=== PATIENT | male | born 1995 | race Caucasian/White ===

== ENCOUNTER 2025-06-22 15:47 | Outpatient (BNV) | payer OTHER, SELFPAY | END 2025-06-23 14:29 | PROVIDERS: Admitting Provider Psychiatry & Neurology Psychiatry; Visit Provider Internal Medicine Cardiovascular Disease | DX: I45.10 Unspecified right bundle-branch block (principal) | CPT/HCPCS: 93010 ==

== ENCOUNTER 2025-06-22 15:47 | Inpatient (IN) | payer OTHER, SELFPAY ==
--- OUTSIDE RECORDS SUMMARY | 2025-06-21 16:09 | XMS_ITS | Encounter Summary ---
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 procedure / Unknown Non-blood Collection / Unknown 06/22/2025 8:33 AM EST 06/22/2025 8:38 AM [facility] - 06/22/2025 9:11 AM EST Assay cutoffs: Amphetamines 1000 ng/mL Barbiturates 200 ng/mL Benzodiazepines 200 ng/mL Cocaine 300 ng/mL Fentanyl 1 ng/mL Opiates 300 ng/mL Oxycodone 100 ng/mL THC 50 ng/mL Semi-quantitative assay for screening purposes only. Unconfirmed screening result should not be used for non-medical purposes. *ALTERNATE METHOD CONFIRMATION DONE UPON REQUEST ONLY* Anthony Olson MD LAB URINE ORDERABLES Final Resul t [facility] [address] [place] [address], [place] [phone] * XR Chest 1 View (06/21/2025 6:27 PM EST) Anatomical Region Laterality Modality Body Radiographic Celeste ging 06/22/2025 7:45 AM EST Impressions 06/22/2025 7:46 AM EST No acute pulmonary disease. Code 12154 -------- FINAL REPORT -------- Dictated By: Waqar Ceja Dictated Date: 06/22/2025 07:45 ET Assigned Physician: Waqar Ceja Reviewed and Electronically Signed By: Waqar Ceja Signed Date: 06/22/2025 07:46 ET Workstation ID: [id number] Transcribed By: Self Edit Transcribed Date: 06/22/2025 07:45 ET Narrative 06/22/2025 7:46 AM EST HISTORY: The patient is a 30-year-old male with altered mental status. FINDINGS: Sitting AP radiograph of the chest demonstrates normal appearance of the bony structures. The cardiac and mediastinal contours are of normal appearance given AP technique. The lungs and costophrenic angles are clear. Procedure Note Waqar Ceja MD - 06/22/2025 HISTORY: The patient is a 30-year-old male with altered mental status. FINDINGS: Sitting AP radiograph of the chest demonstrates normalappearance of the bony structures. The cardiac and mediastinal contoursare of normal appearance given AP technique. The lungs and costophrenicangles are clear. IMPRESSION: No acute pulmonary disease. Code 31372 -------- FINAL REPORT -------- Dictated By: Waqar Ceja Dictated Date: 06/22/2025 07:45 ET Assigned Physician: Waqar Ceja Reviewed and Electronically Signed By: Waqar Ceja Signed Date: 06/22/2025 07:46 ET Workstation ID: [id number] Transcribed By: Self Edit Transcribed Date: 06/22/2025 07:45 ET us Anthony Olson MD IMG XR PROCEDURES Final Result * (ABNORMAL) CBC auto differential (06/21/2025 4:59 PM EST) [facility] WBC 10.5 4.8 - 10.8 K/mcL LAB HEMETOLOGY METHOD 06/21/2025 5:29 PM [facility] RBC 4.30(L) 4.50 - 5.50 M/mcL LAB HEMETOLOGY METHOD 06/21/2025 5:29 PM [facility] Hemoglobin 12.0(L) 13.5 - 17.5 g/dL LAB HEMETOLOGY METHOD 06/21/2025 5:29 PM [facility] Hematocrit 36.8(L) 42.0 - 54.0 % LAB HEMETOLOGY METHOD 06/21/2025 5:29 PM [facility] MCV 85.0 79.0 - 98.0 FL LAB HEMETOLOGY METHOD 06/21/2025 5:29 PM [facility] MCH 27.7 27.0 - 32.0 pcg LAB HEMETOLOGY METHOD 06/21/2025 5:29 PM [facility] MCHC 32.6 32.0 - 37.0 g/dL LAB HEMETOLOGY METHOD 06/21/2025 5:29 PM [facility] RDW 14.0 11.0 - 15.0 % LAB HEMETOLOGY METHOD 06/21/2025 5:29 PM [facility] Platelets 247 130 - 400 K/mcL LAB HEMETOLOGY METHOD 06/21/2025 5:29 PM [facility] MPV 11.0 7.0 - 11.0 FL LAB HEMETOLOGY METHOD 06/21/2025 5:29 PM [facility] NRBC 0.0 <1.0 % LAB HEMETOLOGY METHOD 06/21/2025 5:29 PM [facility] NRBC Absolute 0.00 <0.10 K/mcL LAB HEMETOLOGY METHOD 06/21/2025 5:29 PM [facility] Neutrophils Relative 68.8 % LAB HEMETOLOGY METHOD 06/21/2025 5:29 PM [facility] Lymphocytes Relative 22.1 % LAB HEMETOLOGY METHOD 06/21/2025 5:29 PM [facility] Monocytes Relative 7.9 % LAB HEMETOLOGY METHOD 06/21/2025 5:29 PM [facility] Eosinophils Relative 0.6 % LAB HEMETOLOGY METHOD 06/21/2025 5:29 PM [facility] Basophils Relative 0.2 % LAB HEMETOLOGY METHOD 06/21/2025 5:29 PM [facility] Immature Granulocytes Relative 0.4 % LAB HEMETOLOGY METHOD 06/21/2025 5:29 PM [facility] Neutrophils Absolute 7.24(H) 1.50 - 7.00 K/mcL LAB HEMETOLOGY METHOD 06/21/2025 5:29 PM [facility] Lymphocytes Absolute 2.32 1.00 - 5.00 K/mcL LAB HEMETOLOGY METHOD 06/21/2025 5:29 PM [facility] Monocytes Absolute 0.83 0.20 - 1.00 K/mcL LAB HEMETOLOGY METHOD 06/21/2025 5:29 PM [facility] Eosinophils Absolute 0.06 0.00 - 0.50 K/mcL LAB HEMETOLOGY METHOD 06/21/2025 5:29 PM [facility] Basophils Absolute 0.02 0.00 - 0.20 K/mcL LAB HEMETOLOGY METHOD 06/21/2025 5:29 PM [facility] Immature Granulocytes Absolute 0.04(H) 0.00 - 0.03 K/mcL LAB HEMETOLOGY METHOD 06/21/2025 5:29 PM [facility] Blood Venous blood specimen / Unknown Venipuncture / Unknown 06/21/2025 4:59 PM EST 06/21/2025 5:19 PM EST us Anthony Olson MD LAB BLOOD ORDERABLES Final Resul t Performing Organization Address [facility]/ZIP Co de Phone Number [facility] [address] [place] [address], [place] [phone] * Salicylate level (06/21/2025 4:59 PM EST) Salicylate Level <3.0 2.0 - 29.0 mg/dL 06/21/2025 6:04 PM EST [facility] Blood Venous blood specimen / Unknown Venipuncture / Unknown 06/21/2025 4:59 PM EST 06/21/2025 5:19 PM EST us Anthony Olson MD LAB BLOOD ORDERABLES Final Resul t Performing Organization Address [facility]/ZIP Co de Phone Number [facility] [address] [place] [address], [place] [phone] * (ABNORMAL) Acetaminophen level (06/21/2025 4:59 PM EST) Acetaminophen Level <2.0(L) 10.0 - 30.0 mcg/mL 06/21/2025 6:02 PM EST [facility] Blood Venous blood specimen / Unknown Venipuncture / Unknown 06/21/2025 4:59 PM EST 06/21/2025 5:19 PM EST us Anthony Olson MD LAB BLOOD ORDERABLES Final Resul t Performing Organization Address City/[facility]/ZIP Co de Phone Number [facility] [address] [place] [address], [place] [phone] * Ethanol (06/21/2025 4:59 PM EST) Ethanol Level 4 0 - 10 mg/dL 06/21/2025 6:02 PM [facility] Blood Venous blood specimen / Unknown Venipuncture / Unknown 06/21/2025 4:59 PM EST 06/21/2025 5:19 PM EST us Anthony Olson MD LAB BLOOD ORDERABLES Final Resul t [facility] [address] [place] [address], [place] [phone] * (ABNORMAL) Comprehensive metabolic panel (06/21/2025 4:59 PM EST) [facility] Sodium 141 133 - 145 mmol/L 06/21/2025 6:02 PM [facility] Potassium 4.1 3.5 - 5.5 mmol/L 06/21/2025 6:02 PM [facility] Chloride 102 96 - 110 mmol/L 06/21/2025 6:02 PM [facility] CO2 29 21 - 32 mmol/L 06/21/2025 6:02 PM [facility] Anion Gap 10 3 - 11 06/21/2025 6:02 PM [facility] Glucose 95 70 - 100 mg/dL 06/21/2025 6:02 PM [facility] BUN 9 5 - 25 mg/dL 06/21/2025 6:02 PM [facility] Creatinine 0.60(L) 0.70 - 1.30 mg/dL 06/21/2025 6:02 PM [facility] eGFR 133 >=60 mL/min/1. 73m2 06/21/2025 6:02 PM [facility] Comment:Calculation based on the Chronic Kidney Disease Epidemiology Collaboration (CKD-EPI) equation refit without adjustment for race. BUN/Creatinine Ratio 15.0 06/21/2025 6:02 PM [facility] Calcium 9.3 8.5 - 10.5 mg/dL 06/21/2025 6:02 PM [facility] AST (SGOT) 32 10 - 42 unit/L 06/21/2025 6:02 PM [facility] ALT (SGPT) 60 10 - 60 unit/L 06/21/2025 6:02 PM [facility] Alkaline Phosphatase 62 42 - 121 unit/L 06/21/2025 6:02 PM [facility] Total Protein 7.5 6.0 - 8.0 g/dL 06/21/2025 6:02 PM [facility] Albumin 4.3 3.2 - 5.0 g/dL 06/21/2025 6:02 PM [facility] Total Bilirubin 0.5 0.0 - 1.4 mg/dL 06/21/2025 6:02 PM [facility] Blood Venous blood specimen / Unknown Venipuncture / Unknown 06/21/2025 4:59 PM EST 06/21/2025 5:19 PM EST us Anthony Olson MD LAB BLOOD ORDERABLES Final Resul t [facility] [address] [place] [address], documented in this encounter Visit Diagnoses Diagnosis Altered mental status, unspecified altered mental status type- Primary documented in this encounter Administered Medications Inactive Administered Medications - up to 3 most recent administrations Medication Order MAR Action Action Date Dose Rate Site ibuprofen (ADVIL,MOTRIN) tablet 600 mg 600 mg, oral, Once, On Fri06/22/25 at 0512, For 1 dose, Administer with food or milk to decrease GI upset Given 06/22/2025 5:17 AM EST 600 mg LORazepam (ATIVAN) tablet 2 mg 2 mg, oral, Once, On Fri06/21/25 at 1649, For 1 dose Given 06/21/2025 5:00 PM EST 2 mg LORazepam (ATIVAN) tablet 2 mg 2 mg, oral, Once, On Fri06/22/25 at 1019, For 1 dose Given 06/22/2025 10:20 AM EST 2 mg documented in this encounter Historical Medications * This list may reflect changes made after this encounter. traZODone (DESYREL) 100 mg tablet Take 1 tablet (100 mg total) by mouth at bedtime. LORazepam (ATIVAN) 2 mg tablet Take 1 tablet (2 mg total) by mouth every 6 (six) hours if needed for anxiety. Max Daily Amount: 8 mg lurasidone (LATUDA) 40 mg tablet Take 1 tablet (40 mg total) by mouth 1 (one) time each day with breakfast. added in this encounter Active and Recently Administered Medications Times are shown in EST. Scheduled Medication Order 06/20/2025 06/21/2025 06/22/2025 ibuprofen (ADVIL,MOTRIN) tablet 600 mg (COMPLETED) 600 mg, oral, Once, On Fri06/22/25 at 0512, For 1 dose, Administer with food or milk to decrease GI upset 0517 (Given - Provid er: Jorge Urrutia RN) LORazepam (ATIVAN) tablet 2 mg (COMPLETED) 2 mg, oral, Once, On Fri06/21/25 at 1649, For 1 dose 1700 (Given - Provider: Melissa Johnson RN) LORazepam (ATIVAN) tablet 2 mg (COMPLETED) 2 mg, oral, Once, On Fri06/22/25 at 1019, For 1 dose 1020 (Given - Provid er: Patricia Ramirez RN) documented in this encounter Orders Consult Count Last Ordered Date First Orde red Date IP CONSULT TO MOLDER 1 06/21/2025 documented in this encounter Care Teams Blood Bank Custodian Relationship Specialty Start Date End Date Carlene Olmstead MD [address] [place] [phone] PCP - General Internal Medicine 06/21/25 documented as of this encounter
--- NOTE | ~2025-06-22 | XR_ITS ---
CLINICAL HISTORY: pain, unab le to bear wt intermittently 3 views left foot Comparison: None provided Findings: There is no fracture or dislocation. Joint spaces appear normal. There is no radiopaque foreign body. Impression: No osseous abnormality. This document has been electronically signed by: David Hilton MD on 06/22/2025 21:28:14
--- NOTE | ~2025-06-22 | XR_ITS ---
CLINICAL HISTORY: pain, unable to bear wt intermittently 3 views left ankle Comparison: None provided Findings: There appears to be soft tissue swelling. There is no fracture or dislocation. Joint spaces appear normal. There is no radiopaque foreign body. Impression: No osseous abnormality. This document has been electronically signed by: David Hilton MD on 06/22/2025 21:28:00
[2025-06-22 16:00] VITALS: BP 141/88; PULSE 97; RESP 17; TEMP 36.9; O2SAT 97
[2025-06-22 17:35] VITALS: BMI 36.4
--- OUTSIDE RECORDS SUMMARY | 2025-06-22 17:53 | XMS_ITS | Clinical Summary ---
Author Organization [place] [address] [facility] Address [address] [place], [place] [address], [place] [address] Phone Care Team Providers Care Blanchard Grinder Operator Name Role Phone Carlene Olmstead MD Primary Care Provider [phone] Allergies No known active allergies Medications lurasidone (LATUDA) 40 mg tablet Take 1 tablet (40 mg total) by mouth 1 (one) time each day with breakfast. Active LORazepam (ATIVAN) 2 mg tablet Take 1 tablet (2 mg total) by mouth every 6 (six) hours if needed for anxiety. Max Daily Amount: 8 mg Active traZODone (DESYREL) 100 mg tablet Take 1 tablet (100 mg total) by mouth at bedtime. 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 Acne vulgaris 11/11/2012 DX:Acne vulgaris Morbid obesity (CMS/HCC V24, CMS/HCC V28) DX:Morbid obesity (HCC) Hematochezia DX:Hematochezia; COMMENT: colonscopy done in 2013 at [facility] and normal Family History Medical History Relation Name Comments Diabetes Father Relation Name Status Comments Brother 1 Alive Brother 2 Alive Father Alive Mother Alive Sister 1 Alive Sister 2 Alive Sister 3 Alive Social History Tobacco Use Types Packs/Day Years Used Date Smoking Tobacco: Never Smokeless Tobacco: Never Alcohol Use Standard Drinks/Week Comments No 0 (1 standard drink = 0.6 oz pur e alcohol) Sex and Gender Information Value Date Recorded Sex Assigned at Not on file Legal Sex Male 12:42 PM EST Gender Identity Not on file Sexual Orientation Not on file Obstetrics History Last Filed Vital Signs Vital Sign Reading [...] Mass Index 36.02 06/21/2025 9:57 PM EST Plan of Treatment Upcoming Encounters Date Type Department Care Team (Late st Contact Info) Description 08/18/2025 3:30 PM EST Office Visit Internal Medicine - [address] [phone] Carlene Olmstead MD [address] [place] [address] Health Maintenance Due Date Last Done Comments Diabetes: Annual Foot Exam 2005 Diabetes: Annual Retina Eye Exam 2005 Hepatitis A Vaccines (1 of 2 - Risk 2-dose series) 2014 HPV Vaccines (1 - 3-dose SCDM series) 2022 DTaP,Tdap,and Td Vaccines (8 - Td or Tdap) 11/09/2022 11/09/2012, 03/21/2008, 05/15/2000, Additional history exists HIV Screening 08/26/2023 Hepatitis C Screening 08/26/2023 Social Influencers of Health Screening 08/26/2023 Depression Screening 07/28/2024 COVID-19 Vaccine ( season) 2025 Influenza Vaccine (#1) 2025 , 07/02/2010, 06/26/2009 Diabetes: Annual Urine Albumin-Creatinine Ratio (uACR) 06/21/2025 05/24/2021 Diabetes: Blood Sugar Control Test (HGBA1C) 11/23/2025 2025 Diabetes: Annual GFR (Glomerular Filtration Rate) 06/21/2026 06/21/2025, 06/02/2025, 05/23/2025, Additional history exists Hypertension/CHF/CAD Annual BMP Blood Test 06/21/2026 06/21/2025, 06/02/2025, 05/23/2025, Additional history exists Cholesterol Screening (Lipid Panel) 2030 2025 RSV Immunization Adult Patients (1 - 1-dose 75+ series) 2070 HIB Vaccines Completed 12/13/1997, 07/1995, 1995 Hepatitis B Vaccines Completed 12/13/1997, 1995, 1995 IPV Vaccines Completed 05/15/2000, 11/25, 12/13/1997, Additional history exists MMR Vaccines Completed 05/15/2000, 12/13/1997 Meningococcal ACWY Vaccine Aged Out 06/26/2009 N o longer eligible based on patient's age to complete this topic Varicella Vaccines Completed 06/26/2009, 02/13/1999 Meningococcal B Vaccine Aged Out No l onger eligible based on patient's age to complete this topic Pneumococcal Vaccine: Pediatrics (0 to 5 Years) and At-Risk Patients (6 to 49 Years) Aged Out No longer eligible based on patient's age to complete this topic RSV Immunization Patients Under 20 months Aged Out No longer eligible based on patient's age to complete this topic Procedures Procedure Name Priority Date/Time Associated Diagnosis Comments METHADONE SCREEN, URINE STAT 06/22/2025 8:33 AM EST PHENCYCLIDINE, URINE STAT 06/22/2025 8:33 AM EST BUPRENORPHINE SCREEN, URINE STAT 06/22/2025 8:33 AM EST DRUG ABUSE SCREEN 8A PANEL, URINE STAT 06/22/2025 8:33 AM EST XR CHEST 1 VIEW STAT 06/21/2025 6:27 PM EST ECG 12-LEAD STAT 06/21/2025 5:15 PM EST CBC WITH AUTO DIFFERENTIAL STAT 06/21/2025 4:59 PM EST SALICYLATE LEVEL STAT 06/21/2025 4:59 PM EST ACETAMINOPHEN LEVEL STAT 06/21/2025 4 :59 PM EST ETHANOL STAT 06/21/2025 4:59 PM EST COMPREHENSIVE METABOLIC PANEL STAT 06/21/2025 4:59 PM EST CBC AND DIFFERENTIAL STAT 06/21/2025 4:59 PM EST from Last 3 Months Results * (ABNORMAL) Drug abuse screen 8a panel, urine (06/22/2025 8:33 AM EST) Amphetamine Screen, Ur Negative Negative 06/22/2025 9:[address] [facility] Comment:Certain OTC medicati ons containing ephedrine, phenylephrine, pseudoephedrine and phenylpropanolamine can cause false positive results. Barbiturate Screen, Ur Negative Negative 06/22/2025 9:[address] [facility] Benzodiazepine Screen, Ur Negative Negative 06/22/2025 9:[address] [facility] Cocaine Screen, Ur Negative Negative 2024 9:[address] [facility] Opiate Screen, Ur Negative Negative 025 9:[address] [facility] Cannabinoid (THC) Screen, Ur Positive(A ) Negative 06/22/2025 9:11 AM EST [facility] Comment:Specimens from patie nts taking pantoprazole sodium (Protonix) have been shown to produce false positive results. Oxycodone Screen, Ur Negative Negative 05/29 9:11 AM EST [facility] Fentanyl, Ur Negative Negative 06/22/2025 9:[address] [facility] Urine Urine specimen obtained by clean catch procedure / Unknown Non-blood Collection / Unknown 06/22/2025 8:33 AM EST 06/22/2025 8:38 AM EST [facility] - 06/22/2025 9:11 AM EST Assay [...] MD LAB URINE ORDERABLES Final Resul t [facility] [address] [place] [address], * Buprenorphine screen, urine (06/22/2025 8:33 AM EST) Pathologist [facility] Buprenorphine Screen Urine Negative Negative 06/22/2025 9:[address] [facility] Urine Urine specimen obtained by clean catch procedure / Unknown Non-blood Collection / Unknown 06/22/2025 8:33 AM EST 06/22/2025 8:38 AM EST [facility] - 06/22/2025 9:09 AM EST Assay cutoff 5 ng/mL Semi-quantitative assay for screening purposes only. Unconfirmed screening result should not be used for non-medical purposes. *ALTERNATE METHOD CONFIRMATION DONE UPON REQUEST ONLY* us Anthony Olson MD LAB URINE ORDERABLES Final Resul t Performing Organization Address City/[facility]/ZIP Co de Phone Number [facility] [address] [place] [address], [place] [phone] * Methadone, urine (06/22/2025 8:33 AM EST) Methadone Screen, Urine Negative Negative 06/22/2025 9:11 AM EST [facility] Comment: Assay cutoff 300 ng/mL Semi-quantitative [...] ORDERABLES Final Resul t Performing Organization Address [facility] Co de Phone Number [facility] [address] [place] [address], [place] [phone] * Phencyclidine, urine (06/22/2025 8:33 AM EST) PCP Scrn, Ur Negative Negative 06/22/2025 9:11 AM EST [facility] Comment: Assay cutoff 25 ng/mL Semi-quantitative assay for screening purposes only. Unconfirmed screening result should not be used for non-medical purposes. *ALTERNATE METHOD CONFIRMATION DONE UPON REQUEST ONLY* Urine Urine specimen obtained by clean catch procedure / Unknown Non-blood Collection / Unknown 06/22/2025 8:33 AM EST 06/22/2025 8:38 AM EST us Anthony Olosn MD LAB URINE ORDERABLES Final Resul t Performing Organization Address [facility] Co de Phone Number [facility] [address] [place] [address], [place] [phone] * XR Chest 1 View (06/21/2025 6:27 PM EST) Anatomical Region Laterality Modality Body Radiographic Celeste ging 06/22/2025 7:45 AM EST Impressions 06/22/2025 7:46 AM EST No acute pulmonary disease. Code 65680 -------- FINAL REPORT -------- Dictated By: Waqar Ceja Dictated Date: 06/22/2025 07:45 ET Assigned Physician: Waqar Ceja Reviewed and Electronically Signed By: Waqar Ceja Signed Date: 06/22/2025 07:46 ET Workstation ID: [id number] Transcribed By: Self Edit Transcribed Date: 06/22/2025 [...] clear. IMPRESSION: No acute pulmonary disease. Code 64888 -------- FINAL REPORT -------- Dictated By: Waqar Ceja Dictated Date: 06/22/2025 07:45 ET Assigned Physician: Waqar Ceja Reviewed and Electronically Signed By: Waqar Ceja Signed Date: 06/22/2025 07:46 ET Workstation ID: [id number] Transcribed By: Self Edit Transcribed Date: 06/22/2025 07:45 ET Anthony Olson MD IMG XR PROCEDURES Final Result * (ABNORMAL) CBC auto differential (06/21/2025 4:59 PM EST) WBC 10.5 4.8 - 10.8 K/mcL LAB HEMETOLOGY METHOD 06/21/2025 5:[address] [facility] RBC 4.30(L) 4.50 - 5.50 M/mcL LAB HEMETOLOGY METHOD 06/21/2025 5:[address] [facility] Hemoglobin 12.0(L) 13.5 - 17.5 g/dL LAB HEMETOLOGY METHOD 06/21/2025 5:[address] [facility] Hematocrit 36.8(L) 42.0 - 54.0 % LAB HEMETOLOGY METHOD 06/21/2025 5:[address] [facility] MCV 85.0 79.0 - 98.0 FL LAB HEMETOLOGY METHOD 06/21/2025 5:[address] [facility] MCH 27.7 27.0 - 32.0 pcg LAB HEMETOLOGY METHOD 06/21/2025 5:[address] [facility] MCHC 32.6 32.0 - 37.0 g/dL LAB HEMETOLOGY METHOD 06/21/2025 5:[address] [facility] RDW 14.0 11.0 - 15.0 % LAB HEMETOLOGY METHOD 06/21/2025 5:[address] [facility] Platelets 247 130 - 400 K/mcL LAB HEMETOLOGY METHOD 06/21/2025 5:[address] [facility] MPV 11.0 7.0 - 11.0 FL LAB HEMETOLOGY METHOD 06/21/2025 5:[address] [facility] NRBC 0.0 <1.0 % LAB HEMETOLOGY METHOD 06/21/2025 5:[address] [facility] NRBC Absolute 0.00 <0.10 K/mcL LAB HEMETOLOGY METHOD 06/21/2025 5:[address] [facility] Neutrophils Relative 68.8 % LAB HEMETOLOGY METHOD 06/21/2025 5:[address] [facility] Lymphocytes Relative 22.1 % LAB HEMETOLOGY METHOD 06/21/2025 5:[address] [facility] Monocytes Relative 7.9 % LAB HEMETOLOGY METHOD 06/21/2025 5:[address] [facility] Eosinophils Relative 0.6 % LAB HEMETOLOGY METHOD 06/21/2025 5:[address] [facility] Basophils Relative 0.2 % LAB HEMETOLOGY METHOD 06/21/2025 5:[address] [facility] Immature Granulocytes Relative 0.4 % LAB HEMETOLOGY METHOD 06/21/2025 5:[address] [facility] Neutrophils Absolute 7.24(H) 1.50 - 7.00 K/mcL LAB HEMETOLOGY METHOD 06/21/2025 5:[address] [facility] Lymphocytes Absolute 2.32 1.00 - 5.00 K/mcL LAB HEMETOLOGY METHOD 06/21/2025 5:[address] [facility] Monocytes Absolute 0.83 0.20 - 1.00 K/mcL LAB HEMETOLOGY METHOD 06/21/2025 5:[address] [facility] Eosinophils Absolute 0.06 0.00 - 0.50 K/mcL LAB HEMETOLOGY METHOD 06/21/2025 5:[address] [facility] Basophils Absolute 0.02 0.00 - 0.20 K/mcL LAB HEMETOLOGY METHOD 06/21/2025 5:[address] [facility] Immature Granulocytes Absolute 0.04(H) 0.00 - 0.03 K/mcL LAB HEMETOLOGY METHOD 06/21/2025 5:[address] [facility] Blood Venous blood specimen / Unknown Venipuncture / Unknown 06/21/2025 4:59 PM EST 06/21/2025 5:19 PM EST us Anthony Olson MD LAB BLOOD ORDERABLES Final Resul t Performing Organization Address City/[facility]/ZIP Co de Phone Number [facility] [address] [place] [address], [place] [phone] * Ethanol (06/21/2025 4:59 PM EST) Ethanol Level 4 0 - 10 mg/dL 06/21/2025 6:02 PM EST [facility] Blood Venous blood specimen / Unknown Venipuncture / Unknown 06/21/2025 4:59 PM EST 06/21/2025 5:19 PM EST us Anthony Olson MD LAB BLOOD ORDERABLES Final Resul t Performing Organization Address [facility] de Phone Number [facility] [address] [place] [address], * (ABNORMAL) Acetaminophen level (06/21/2025 4:59 PM EST) Acetaminophen Level <2.0(L) 10.0 - 30.0 mcg/mL 06/21/2025 6:02 PM EST [facility] Blood Venous blood specimen / Unknown Venipuncture / Unknown 06/21/2025 4:59 PM EST 06/21/2025 5:19 PM EST us Anthony Olson MD LAB BLOOD ORDERABLES Final Resul t Performing Organization Address City/[facility]/ZIP Co de Phone Number [facility] [address] [place] [address], [place] [phone] * Salicylate level (06/21/2025 4:59 PM EST) Salicylate Level <3.0 2.0 - 29.0 mg/dL 06/21/2025 6:04 PM EST [facility] Blood Venous blood specimen / Unknown Venipuncture / Unknown 06/21/2025 4:59 PM EST 06/21/2025 5:19 PM EST us Anthony Olson MD LAB BLOOD ORDERABLES Final Resul t [facility] [address] [place] [address], [place] [phone] * (ABNORMAL) Comprehensive metabolic panel (06/21/2025 4:59 PM EST) Pathologist [facility] Sodium 141 133 - 145 mmol/L 06/21/2025 6:[address] [facility] Potassium 4.1 3.5 - 5.5 mmol/L 06/21/2025 6:[address] [facility] Chloride 102 96 - 110 mmol/L 06/21/2025 6:[address] [facility] CO2 29 21 - 32 mmol/L 06/21/2025 6:[address] [facility] Anion Gap 10 3 - 11 06/21/2025 6:[address] [facility] Glucose 95 70 - 100 mg/dL 06/21/2025 6:[address] [facility] BUN 9 5 - 25 mg/dL 06/21/2025 6:[address] [facility] Creatinine 0.60(L) 0.70 - 1.30 mg/dL 06/21/2025 6:[address] [facility] eGFR 133 >=60 mL/min/1. 73m2 06/21/2025 6:[address] [facility] Comment:Calculation based on the Chronic Kidney Disease Epidemiology Collaboration (CKD-EPI) equation refit without adjustment for race. BUN/Creatinine Ratio 15.0 06/21/2025 6:[address] [facility] Calcium 9.3 8.5 - 10.5 mg/dL 06/21/2025 6:[address] [facility] AST (SGOT) 32 10 - 42 unit/L 06/21/2025 6:[address] [facility] ALT (SGPT) 60 10 - 60 unit/L 06/21/2025 6:[address] [facility] Alkaline Phosphatase 62 42 - 121 unit/L 06/21/2025 6:[address] [facility] Total Protein 7.5 6.0 - 8.0 g/dL 06/21/2025 6:[address] [facility] Albumin 4.3 3.2 - 5.0 g/dL 06/21/2025 6:[address] [facility] Total Bilirubin 0.5 0.0 - 1.4 mg/dL 06/21/2025 6:[address] [facility] Blood Venous blood specimen / Unknown Venipuncture / Unknown 06/21/2025 4:59 PM EST 06/21/2025 5:19 PM EST us Anthony Olson MD LAB BLOOD ORDERABLES Final Resul t [facility] [address] [place] [address], from Last 3 Months Insurance MEDICAID - [place] Care Teams Blanchard Grinder Operator Relationship Specialty Start Date End Date Carlene Olmstead MD [address] [facility] [place] [phone] PCP - General Internal Medicine 06/21/25
--- NOTE | 2025-06-22 18:23 | PC.ADMIT ---
Patient was admitted at 1556 from [facility] on a CV with a dx of Unspecified Bipolar and Related Disorder . Patient was initially brought in by his father with AMS, and concerns of pt having a catatonic episode. Per crisis eval, pt's father reported finding him this morning at 3AM standing in the shower with minimal response/movement, and later was noted to be walking outside in his underwear (prompting dad to bring him to the ED). Upon admission assessment, pt is pleasant calm and cooperative. A&O with some impaired insight into situation, intermittent thought blocking and delayed response to questions at times. Patient believes the last year of enduring chronic generalized pain has triggered issues with his mental health. He reports a hx of trauma r/t being medically hospitalized and treated as a medical guinea pig , with no definitive answer/cause of his pain. Describes the pain as messing with my head, causing me to not to be able to process things and having racing thoughts . Pt reports a hx of both manic and catatonic episodes. States prior to admission, he was endorsing VH and command AH telling him to hurt himself. Denies any current SI/HI/AVH. Reports appetite comes and goes , sleeping poorly due to constant racing thoughts. Patient recently moved here from [place] (d/t pending divorce with his ) and is now staying in [place] with his father. Per eval, he was discharged from an inpatient facility 2 weeks ago and was started on Ativan, Latuda and Trazadone. Patient's father believed he was taking too high of a dose of the medications and decided to stop all medications abruptly (had been off the medications for 3 days prior to coming in). Per pt, he is in the process of establishing outpatient providers out here. Tox positive for cannabis only, denies any other substance use. During skin check, pt noted to have dry, scaly skin to his scrotum only. Placed on 15 minute checks for safety.
[2025-06-22 20:00] VITALS: BP 125/62; PULSE 95; RESP 16; TEMP 36.7; O2SAT 97
--- NOTE | 2025-06-22 20:20 | HO.PM.IMCN ---
History of Present Illness Data of Consult Service Date: 06/22/25 Requesting physician: Crystal Shine Primary Care Provider: Unknown Physician HPI Reason for consult: Admission H/P Pt is a 30 yo male with PMH psoriatic arthritis, marijuana use via vaping, bipolar, anxiety, catatonia presents to ED after father found pt walking outside in his underwear. Pt recently moved back home to [place] as pt is going through a divorce and was living in [place] previously. Pt has yet to establish care in this area with PCP, Rheumatology, and psychiatry. Pt able to meet today and was interactive, able to describe his 4 year hx living with psoriatic arthritis. The mecical care overall has been traumatic and pt describes being treated like a guineau pig in the past. Pt has been on Taltz, an injectable for psoriatic arthritis and this has not helped with his chronic pain issues. Pt vapes marijuana often throughout the day, every 1 to 1.5 hours when awake. Pt states he marijuana and hot showers help his pain symptoms. Pt reporting today issues with left foot and ankle with intermittent pain and inability to bear weight at times. Pt denies any recent xrays or examination of the affected extremity. Also, pt reports an unusual rash in the scrotal area with pain on pulling back the foreskin. Pt unsure when the rash started but has had this for some time. Pt has not been seen by a urologist for the possible phimosis without evidence of paraphimosis. Pt denies any issues with urinating to include dysuria, hematuria, hesitation or frequency. Pt denies hx of STD and is currently not sexually active. Pt currently denying SI, HI or hallucinations and is not having any chest pain, SOB at rest or with exertion, abd pain, N/V, fever, night sweats or recent falls. Pt denies use of alcohol, tobacco or illicit/ IV drugs Review of Systems Review of Systems: Pt denies any issues with urinating to include dysuria, hematuria, hesitation or frequency. Pt denies hx of STD and is currently not sexually active. Pt denies any pain or burning in the scrotal area. Pt ddoes have pain with retraction of foreskin, otherwise no pain at rest. Pt currently denying SI, HI or hallucinations and is not having any chest pain, SOB at rest or with exertion, abd pain, N/V, fever, night sweats or recent falls. Yes all other systems are reviewed and are negative [facility] Medical History Insomnia Psoriatic arthritis Cognitive capacity: A/O X3 Functional capacity: independent ambulation Social History (Updated 06/22/25 @ 20:32 by SARAHI Wadsworth) Household Members: Family Housing: House Do you presently have visiting nurse or other home services: No Patient Tobacco Use Status: Former Tobacco user e-Cigarette/Vaping Use: Former Use Substance Use Type: Marijuana Ebola Risk: Travel/Contact With Anyone From Affected Area/s: No Has Patient Experienced Ebola Symptoms: No Meds Allergies Allergy/AdvReac Type Severity Reaction Status Date / Time No Known Allergies Allergy Verified 06/22/25 15:53 Active Medications: Current Medications Acetaminophen (Acetaminophen 325 Mg Tablet) 650 mg PO Q6H PRN PRN Reason: Headache/Pain, Scale 1-10 Al Hydroxide/Mg Hydroxide (Magnesium Hydrox/Alum Hydrox 30 Ml Oral.Susp) 30 ml PO Q6H PRN PRN Reason: Heartburn/Nausea Clotrimazole (Clotrimazole 1 % Cream 15 Gm Tube) 1 appl TOPICAL BID SY; Protocol Hydroxyzine HCl (Hydroxyzine Hcl 25 Mg Tablet) 25 mg PO Q6H PRN PRN Reason: mild anxiety Ibuprofen (Ibuprofen 400 Mg Tablet) 400 mg PO Q6H PRN PRN Reason: Pain, Moderate(Pain Scale 4-6) Lorazepam (Lorazepam 1 Mg Tablet) 1 mg PO Q6H PRN PRN Reason: severe anxiety Magnesium Hydroxide (Milk Of Magnesia 30 Ml Oral.Susp) 30 ml PO DAILY PRN PRN Reason: Constipation Nicotine Polacrilex (Nicotine Polacrilex 2 Mg Gum) 4 mg BUCCAL Q2H PRN PRN Reason: Nicotine Cravings Olanzapine (Olanzapine 5 Mg Tablet) 5 mg PO Q4H PRN PRN Reason: agitation Trazodone HCl (Trazodone Hcl 50 Mg Tablet) 50 mg PO BEDTIME MRX1 PRN PRN Reason: Insomnia Trazodone HCl (Trazodone Hcl 100 Mg Tablet) 100 mg PO BEDTIME [facility] Home Medications ?Medication ?Instructions ?Recorded ?Confirmed ?Last Taken ?Type lorazepam 2 mg tablet (Ativan) 2 mg PO Q6H PRN Anxiety 06/22/25 06/22/25 06/22/25 History lurasidone 40 mg tablet 40 mg PO DAILY@1700 06/22/25 06/22/25 Unknown History trazodone 100 mg tablet 100 mg PO BEDTIME 06/22/25 06/22/25 Unknown History Physical Exam Vital Signs and Narrative: Vital Signs: Last Vital Signs Temp 98.4 F 06/22/25 16:00 Pulse 97 06/22/25 16:00 Resp 17 06/22/25 16:00 BP 141/88 H 06/22/25 16:00 Pulse Ox 97 06/22/25 16:00 O2 Del Method Room Air 06/22/25 16:00 BMI result Body Mass Index 36.4 Pt awake, alert able to follow commands, protect airway. Neuro: CN II-XII intact HEENT: sclera nonicteric, conjunctiva pink, PERRLA, EOM intact, nares patent, oral mucosa moist no thrush or exudate, dentition in good repair Cardiac: S1S2 RRR, no murmur, no JVD, no edema BLE Lungs: CTA B ABD: soft, NT, No guarding, BS Active : no bladder distension, no CVA tendenrness, scrotum and penis with red dark discoloration, no obvious paraphimosis, possible phimosis, testicular torsion, hydrocele, inguinal hernia EXT: no edema, 4/5 strength LLE, otherwise strength 5/5 upper and lower ext Psych: affect flat, soft spoken. Insight fair Skin: red discoloration scrotum no other open wounds reported or found Results ECG Prior ECG tracings: not available for review Assessment and Plan (1) Psoriatic arthritis: Status: Acute (2) Left foot pain: Status: Acute (3) Phimosis: Status: Acute (4) Scrotal rash: Status: Acute Plan Pt is a 30 yo male with PMH psoriatic arthritis, marijuana use via vaping, bipolar, anxiety, catatonia presents to ED after father found pt walking outside in his underwear. Pt has hx of Bipolar depression and anxiety. Extensive review of medical hx prompted A/P for the following: Psoriatic Arthritis Pt normally on Taltz injectable Q28 days, med rec pending Pt will need to establsih care with [employer] locally, was living in [place] Tylenol alternating with Motrin ordered Hot showers and marijuana use via vaping have been helpful with controlling pain CBC, ESR, CRP pending Left foot/ ankle pain Xray of foot and ankle ordered Pt is currently able to bear weight, is favoring left lower extremity No edema, no evidence of vascular insufficiency or obvious acute issues Possible phimosis with red, dark rash of scrotum (TInea Cruris) Clotrimazole ordered for red rash involving scrotum Pt reports pain with retracting the foreskin only, denies pain or discomfort at rest - no evidence of testicular torsion, hydrocele, inguinal hernia Urology consulted UA ordered Stage 1 Hypertension Monitor closely Low sodium diet No RX tx indicated currently Marijuana Use Pt vapes every 1- 1.5 hrs when awake to help with pain Pt denies hx of hyperemesis cyclic vomiting syndrome Pt takes hot showers often, help with pain per pt Obesity Pt does work out and weight lifts Pt deferred need for nutritional consult at this time Pt counseled on the benefits of wt loss in regard to chronic pain issues We appreciate this consultation and will continue to follow pt to review labs and response to treatment implemented above. Please reach out with any questions or concerns.
[2025-06-22] MEDS: Clotrimazole 1 % Cream 15 GM TUBE 1 APPL TOPICAL (21:53)
[2025-06-22 22:15] LABS: Appearance Urine Clear; Glucose Urine UA Negative (Negative); PH 6.0 (5.0-9.0); Specific Gravity - Urine 1.025 (1.005-1.025); UMIC TRIGGER UA YES
--- NOTE | 2025-06-23 | ECG_ITS ---
Test Reason : CP Blood Pressure : */* mmHG Vent. Rate : 83 BPM Atrial Rate : 83 BPM P-R Int : 168 ms QRS Dur : 106 ms QT Int : 370 ms P-R-T Axes : 44 105 37 degrees QTcB Int : 434 ms Normal sinus rhythm Incomplete right bundle branch block Possible Right ventricular hypertrophy Abnormal ECG No previous ECGs available Referred By: Lina Varela Electronically Signed By: Liborio Julio
[2025-06-23 08:00] VITALS: BP 119/71; PULSE 97; RESP 16; TEMP 36.7; O2SAT 97
--- NOTE | 2025-06-23 08:03 | P.HPPS_ITS ---
HPI Date of Service: 06/23/25 Chief Complaint: crisis Sources of Information: patient interviewed, chart reviewed and crisis/core team assessment reviewed HPI Subjective Notes: [place] Warning and Conditional Voluntary Narrative: Mr. Davies is a 30 year-old male with hx of bipolar disorder who brought by father to [facility] ED due to presenting with s/s of catatonia including mutism, standing at night in the shower, not moving nor talking. Per father, pt has hx of catatonia, and bipolar disorder. He recently came from [place] to [place] as wants a and patient not able to care for himself. Per [facility] records, father thought current psychotropic medications were too high doses and decided to stop them including ativan 2mg po daily and latuda. Pt was discharged from psychiatric unit in [place] about 2 weeks ago. Pertinent labs completed in the ED include: CBC without leokopenia/leukocytosis, normocytic anemia with stable H&H. CMP without electrolyte abnormalities, BUN 9, Cr 0.60, creatinine clearance 133. EKG normal sinus rhythm, possible ventricular hypertrophy, Qtc 402ms. Utox positive for THC. On the unit, pt presents with some delayed in response, but appears more talkative than described at [facility]. He reports his problems started when he started having generalized pain all over. He reports my mind is going on too fast because I have been in pain for a long time untreated. He adds I don't know how to explain it. I don't look like I am in pain, because I contain the pain. He has been dx with psoriatic arthritis. He reports he has gone under extensive work up to rule out autoimmune conditions. He reports he does not belive doctors anymore. He reports he has been diagnosed with Bipolar Disorder which he reports he is also suspicious of. He reports they stopped giving medications for pain and instead gave him psychiatric medications. He reports he hears voices, when asked to elaborate he states I don't know how to explain. He denies visual hallucinations. He has an underlying suspicious about the his medications and recommendation from his providers. He reports he does not know whether he will stay in [place] or not. He is originally from [place] and his parents are here. He denies SI/HI. He reports fair sleep. Past Psychiatric History: Inpt: pt reports he has had about 4 to 5 inpt psych admission in the past 3 years, all in [place]. OP: none currently. Past medication trials: abilify, latuda, ativan, ketamine. Pt denies hx of suicide attempts. Medical Evaluation Reviewed: Yes [facility] Medical History Insomnia Psoriatic arthritis Diagnostics Vital Signs (24Hr): Vital Signs - 24 hr 06/22/25 16:00 06/22/25 20:00 Temperature 98.4 F 98.1 F Pulse Rate 97 95 Respiratory Rate 17 16 Blood Pressure 141/88 H 125/62 Pulse Oximetry 97 97 Oxygen Delivery Method Room Air Room Air BMI result Body Mass Index 36.4 Labs 06/23/25 08:08 06/23/25 08:08 Labs: Laboratory Results - last 48 hr 06/22/25 21:50 Urine Color Yellow Urine Appearance Clear Urine pH 6.0 Ur Specific [place] 1.025 Urine Protein Negative Urine Glucose (UA) Negative Urine Ketones Negative Urine Blood Trace H Urine Nitrite Negative Ur Leukocyte Esterase Trace H Urine RBC 0-2 Urine WBC 0-5 Ur Squamous Epith Cells 0-2 Urine Bacteria None Seen Hyaline Casts 0-2 Meds/Allergies Meds Home Medications ?Medication ?Instructions ?Recorded ?Confirmed ?Type lorazepam 2 mg tablet (Ativan) 2 mg PO Q6H PRN Anxiety 06/22/25 06/22/25 History lurasidone 40 mg tablet 40 mg PO DAILY@1700 06/22/25 06/22/25 History trazodone 100 mg tablet 100 mg PO BEDTIME 06/22/25 1 08/22/24 History Allergies Allergies Allergy/AdvReac Type Severity Reaction Status Date / Time No Known Allergies Allergy Verified 06/22/25 15:53 Mental Status Exam Mental Status Exam Narrative: Appearance: wearing hospital gown, fair hygiene, in NAD behavior: cooperative, poor eye contact, gaze at time fixed at wall Psychomotor: some retardation noted Speech: mostly clear, some delayed in response, spontaneous TP: mostly linear TC: worried that pain is what is causing psychiatric symptoms, mistrustful of medical providers... hard to trust what the doctors say Mood: in pain Affect: constricted, staring at times SI: denies HI: denies VH/AH: appears internally preoccupied, reports VH but does not elaborate Delusions: mistrustful of medical system Insight/judgment: poor x 2 Memory/cog: alert, oriented x 3. Assessment & Plan Assessment & Plan (1) Bipolar I disorder with catatonia: Status: Acute Code(s): F31.9 - Bipolar disorder, unspecified; F06.1 - Catatonic disorder due to known physiological condition Plan Mr. Davies is a 30 year-old male with hx of Bipolar Disorder, catatonia who was recently discharged from psych inpt unit in [place] 2 weeks ago and moved to his father's house as he is going through a divorce, was brought to [facility] ED due to exacerbation of catatonia. Per [facility] records, his father reported he (not the pt) decided to stop medication latuda and ativan as father thought doses were too high. Per [facility] records, pt was given ativan and later presented as more talkative. On the unit, pt is talking more, appears internally preoccupied, guarded, somewhat somatically preoccupied and mistrusting medical providers. We discussed risks, benefits and alternative treatment options, pt did agree to restart ativan, at this point will schedule ativan 0.5mg po TID- will monitor if he needs higher doses in even of worsening of catatonic symptoms. Will restart latuda for underlying psychosis. Pending further collateral information from father, prior psych admission and psychiatrist in [place]. PLAN 1. Admit to M3, CV, 15 minutes checks for safety 2. ativan 0.5mg po TID. will adjust dose if needed 3. start latuda 40mg po dinnertime 4. obtain collateral information 5. aftercare planning. Patient educated on: diagnosis and medication risk/benefits Reason for continued inpatient stay Substantial Risk for: inability to function Statement Statement: I have reviewed the history and physical and performed a pertinent examination on my patient. No changes have occurred unless specified. If the History and Physical was not performed prior to admission, the Hospitalist's service will be consulted for completing the admission physical. Time Spent With Patient Time: Total time managing care of this patient today ____ minutes.
[2025-06-23 08:26] LABS: MANUAL DIFF FLAG NO
[2025-06-23 08:31] LABS: Hematocrit 36.9 % (42.0-52.0); Hemoglobin 12.2 g/dl (14.0-18.0); Imm Gran Abs Auto 0.02 X10*3/uL (0.00-0.03); Imm Gran Pct Auto 0.2 % (0.0-0.4); Lymphocytes Absolute Auto 2.5 X10*3/uL (1.2-4.9); Mean Corpuscular HGB Conc 33.1 g/dl (31.0-36.0); Mean Corpuscular Hemoglobin 27.6 pg (27.0-33.0); Mean Corpuscular Volume 83.5 fL (80.0-98.0); NRBC Abs Auto 0.000 X10*3/uL (0.0-0.012); NRBC Pct Auto 0.0 /100WBC (0.0-0.2); Platelet Count 255 X10*3/uL (160-400); Red Blood Count 4.42 X10*6/uL (4.60-5.80); White Blood Count 8.3 X10*3/uL (4.8-10.8)
[2025-06-23 09:12] LABS: Alanine Aminotransferase 40 U/L (0-40); Albumin Level 4.1 g/dL (3.5-5.0); Alkaline Phosphatase 50 U/L (39-117); Anion Gap 11 (12-20); Aspartate Amino Transferase 26 U/L (5-37); Blood Urea Nitrogen 14 mg/dL (9-16); Calcium 9.1 mg/dL (8.4-10.2); Carbon Dioxide 27 mmol/L (22-29); Chloride 107 mmol/L (96-108); Cholesterol 174 mg/dL (<200); Creatinine Clr Calc Pharmacy 198.2; Estimated Glomerular Filt Rate > 60; HDL Cholesterol 28 mg/dL (>40); Potassium 3.8 mmol/L (3.3-5.1); Sodium 141 mmol/L (135-145); Total Protein 7.0 g/dL (6.5-8.0); Triglycerides 67 mg/dL (<150)
[2025-06-23 09:26] LABS: Erythrocyte Sedimentation Rate 28 MM/HR (0-15)
[2025-06-23] MEDS: Clotrimazole 1 % Cream 15 GM TUBE 1 APPL TOPICAL ×2 (10:20→21:33)
--- NOTE | 2025-06-23 13:39 | PC.NURSE ---
Patient c/o #7 CP. Reports radiation up his neck. VSS 119/80, 76 HR, 98 RA, 18 RR. No diaphoresis. No c/o gas, bloating or stomach discomfort. Lian Varela PNP notified.
[2025-06-23 16:06] LABS: Troponin-I High Sensitivity < 2.7 ng/L (<3.5-35.0)
[2025-06-23 19:55] VITALS: BP 108/66; PULSE 82; RESP 16; TEMP 36.6; O2SAT 99
[2025-06-24 08:00] VITALS: BP 142/93; PULSE 87; RESP 20; TEMP 36.2; O2SAT 98
[2025-06-24] MEDS: Clotrimazole 1 % Cream 15 GM TUBE 1 APPL TOPICAL (08:42)
[2025-06-24] MEDS: Flu Vacc TS2025-26(6mo up)/PF 0.5 ML SYRINGE IM (10:05)
--- NOTE | 2025-06-24 11:44 | P.PNPSI_ITS ---
Subjective Subjective Date of Service: 06/24/25 Reason For Visit: crisis Subjective Notes: Conditional Voluntary Interim History: Pt complaining of overall pain which he has psoriatic arthritis. reports minimal relief from ibuprofen. both ESR/CRP elevated, seems like he is having a flare. Will give one time dose of toralac 15mg IM. will schedule naproxen 500mg po BID starting tomorrow. Pt presents with brighter affect and more talkative and able to explain what he experienced prior to going to the hospital. Pt reports he was hearing voices telling him derogatory statements. He denies hearing voices today. No SI/HI. slept through the night and taking medications as prescribed. Diagnostics Vital Signs (24Hr): Vital Signs - 24 hr 06/23/25 19:55 06/24/25 08:00 Temperature 97.9 F 97.2 F Pulse Rate 82 87 Respiratory Rate 16 20 Blood Pressure 108/66 142/93 H Pulse Oximetry 99 98 Oxygen Delivery Method Room Air Room Air BMI result Body Mass Index 36.4 Labs 06/23/25 08:08 06/23/25 08:08 Labs: Laboratory Results - last 48 hr 06/22/25 06/23/25 06/23/25 21:50 08:08 15:32 WBC 8.3 RBC 4.42 L Hgb 12.2 L Hct 36.9 L MCV 83.5 MCH 27.6 MCHC 33.1 RDW 13.9 Plt Count 255 MPV 10.8 Immature Gran % (Auto) 0.2 Neut % (Auto) 59.0 Lymph % (Auto) 30.2 [place] % (Auto) 8.5 Eos % (Auto) 1.9 Baso % (Auto) 0.2 Lymph # (Auto) 2.5 [place] # (Auto) 0.7 Eos # (Auto) 0.2 Baso # (Auto) 0.0 Abs Immat Gran (auto) 0.02 Absolute Neuts (auto) 4.9 Absolute Nucleated RBC 0.000 Nucleated RBC % (auto) 0.0 ESR 28 H Sodium 141 Potassium 3.8 Chloride 107 Carbon Dioxide 27 Anion Gap 11 L BUN 14 Creatinine 0.61 Estim Creat Clear Calc 198.2 Estimated GFR > 60 Random Glucose 87 Estimat Average Glucose 105 Hemoglobin A1c % 5.3 Calcium 9.1 Total Bilirubin 0.5 AST 26 ALT 40 Alkaline Phosphatase 50 Troponin I High Sens < 2.7 C-Reactive Protein 2.12 H Total Protein 7.0 Albumin 4.1 Triglycerides 67 Cholesterol 174 LDL Cholesterol, Calc 133 H HDL Cholesterol 28 L Urine Color Yellow Urine Appearance Clear Urine pH 6.0 Ur Specific [place] 1.025 Urine Protein Negative Urine Glucose (UA) Negative Urine Ketones Negative Urine Blood Trace H Urine Nitrite Negative Ur Leukocyte Esterase Trace H Urine RBC 0-2 Urine WBC 0-5 Ur Squamous Epith Cells 0-2 Urine Bacteria None Seen Hyaline Casts 0-2 Medications Medications Current Medications Acetaminophen (Acetaminophen 325 Mg Tablet) 650 mg PO Q6H PRN PRN Reason: Headache/Pain, Scale 1-10 Last Admin: 06/24/25 11:41 Dose: 650 mg Al Hydroxide/Mg Hydroxide (Magnesium Hydrox/Alum Hydrox 30 Ml Oral.Susp) 30 ml PO Q6H PRN PRN Reason: Heartburn/Nausea Clotrimazole (Clotrimazole 1 % Cream 15 Gm Tube) 1 appl TOPICAL BID SY; Protocol Last Admin: 06/24/25 08:42 Dose: 1 appl Hydroxyzine HCl (Hydroxyzine Hcl 25 Mg Tablet) 25 mg PO Q6H PRN PRN Reason: mild anxiety Last Admin: 06/23/25 19:05 Dose: 25 mg Ibuprofen (Ibuprofen 400 Mg Tablet) 400 mg PO Q6H PRN PRN Reason: Pain, Moderate(Pain Scale 4-6) Last Admin: 06/24/25 06:01 Dose: 400 mg Lorazepam (Lorazepam 0.5 Mg Tablet) 0.5 mg PO TID SY Last Admin: 06/24/25 08:38 Dose: 0.5 mg Magnesium Hydroxide (Milk Of Magnesia 30 Ml Oral.Susp) 30 ml PO DAILY PRN PRN Reason: Constipation Nicotine Polacrilex (Nicotine Polacrilex 2 Mg Gum) 4 mg BUCCAL Q2H PRN PRN Reason: Nicotine Cravings Olanzapine (Olanzapine 5 Mg Tablet) 5 mg PO Q4H PRN PRN Reason: agitation Trazodone HCl (Trazodone Hcl 50 Mg Tablet) 50 mg PO BEDTIME MRX1 PRN PRN Reason: Insomnia Last Admin: 06/23/25 03:24 Dose: 50 mg Trazodone HCl (Trazodone Hcl 100 Mg Tablet) 100 mg PO BEDTIME SY Last Admin: 06/23/25 21:33 Dose: 100 mg Allergies Allergies Allergy/AdvReac Type Severity Reaction Status Date / Time No Known Allergies Allergy Verified 06/22/25 15:53 Assessment & Plan Assessment & Plan (1) Bipolar I disorder with catatonia: Status: Acute Code(s): F31.9 - Bipolar disorder, unspecified; F06.1 - Catatonic disorder due to known physiological condition Plan Mr. Davies is a 30 year-old male with hx of Bipolar Disorder, catatonia who was recently discharged from psych inpt unit in [place] 2 weeks ago and moved to his father's house as he is going through a divorce, was brought to [facility] ED due to exacerbation of catatonia. Per [facility] records, his father reported he (not the pt) decided to stop medication latuda and ativan as father thought doses were too high. Per [facility] records, pt was given ativan and later presented as more talkative. On the unit, pt is talking more, appears internally preoccupied, guarded, somewhat somatically preoccupied and mistrusting medical providers. We discussed risks, benefits and alternative treatment options, pt did agree to restart ativan, at this point will schedule ativan 0.5mg po TID- will monitor if he needs higher doses in even of worsening of catatonic symptoms. Will restart latuda for underlying psychosis. Pending further collateral information from father, prior psych admission and psychiatrist in [place]. PLAN 06/24 pt presents with less s/s of catatonia. more talkative and awareness that he is better. Pt complaining of overall pain which he has psoriatic arthritis. reports minimal relief from ibuprofen. both ESR/CRP elevated, seems like he is having a flare. Will give one time dose of toralac 15mg IM. will schedule naproxen 500mg po BID starting tomorrow. continue ativan 0.5mg po TID. latuda 40mg po dinnertime. PENDING COLLATERAL INFORMATION FROM FATHER AND RECORDS FROM [place] [facility]. Reason for continued inpatient stay Substantial Risk for: inability to function Time Spent With Patient Time: Total time managing care of this patient today ____ minutes.
[2025-06-24 20:00] VITALS: BP 120/70; PULSE 84; RESP 16; TEMP 36.9; O2SAT 99
[2025-06-25 07:00] VITALS: BP 125/76; PULSE 85; RESP 16; TEMP 36.5; O2SAT 97
[2025-06-25] MEDS: Clotrimazole 1 % Cream 15 GM TUBE 1 APPL TOPICAL (09:30)
[2025-06-25] MEDS: Betamethasone Dip Aug 0.05% Cr 15 GM TUBE 1 APPL TOPICAL ×2 (11:52→20:25)
--- NOTE | 2025-06-25 14:13 | HO.PSYCHPN ---
Subjective Subjective Date of Service: 06/25/25 Reason For Visit: crisis Subjective Notes: Conditional Voluntary Interim History: Pt sleeping throught the night. He was seen by urology- see note. Pt c/o of overall pain which is related to psoriatic arthritis, note that both ESR and CRP are elevated. VIPIN pending. He was given dose of toradol IM. scheduled naproxen. he has not seen rheumatology in a year or so. not on any biological med nor disease modifying agent. Pt presents with less s/s of catatonia, more talkative. 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 He feels he is getting better. He is taking medications as prescribed.He denies SI/HI. Mental Status Exam Mental Status Exam Narrative: Appearance: wearing hospital gown, fair hygiene, in NAD behavior: cooperative, poor eye contact, gaze at time fixed at wall Psychomotor: some retardation noted Speech: mostly clear, some delayed in response, spontaneous TP: mostly linear TC: feeling better, increase insight into illness and need for treatment Mood: in pain Affect: constricted, staring at times SI: denies HI: denies VH/AH: less AH Delusions: less paranoid ideas Insight/judgment: improving x 2 Memory/cog: alert, oriented x 3. Diagnostics Vital Signs (24Hr): Vital Signs - 24 hr 06/24/25 20:00 06/25/25 07:00 Temperature 98.5 F 97.7 F Pulse Rate 84 85 Respiratory Rate 16 16 Blood Pressure 120/70 125/76 Pulse Oximetry 99 97 Oxygen Delivery Method Room Air Room Air BMI result Body Mass Index 36.4 Labs 06/23/25 08:08 06/23/25 08:08 Labs: Laboratory Results - last 48 hr 06/23/25 15:32 Troponin I High Sens < 2.7 Medications Medications Current Medications Acetaminophen (Acetaminophen 325 Mg Tablet) 650 mg PO Q6H PRN PRN Reason: Headache/Pain, Scale 1-10 Last Admin: 06/25/25 03:16 Dose: 650 mg Al Hydroxide/Mg Hydroxide (Magnesium Hydrox/Alum Hydrox 30 Ml Oral.Susp) 30 ml PO Q6H PRN PRN Reason: Heartburn/Nausea Betamethasone Dipropion Augmented (Betamethasone Dip Aug 0.05% Cr 15 Gm Tube) 1 appl TOPICAL BID SY; Protocol Last Admin: 06/25/25 11:52 Dose: 1 appl Clotrimazole (Clotrimazole 1 % Cream 15 Gm Tube) 1 appl TOPICAL BID [facility]; Protocol Last Admin: 06/25/25 09:30 Dose: 1 appl Hydroxyzine HCl (Hydroxyzine Hcl 25 Mg Tablet) 25 mg PO Q6H PRN PRN Reason: mild anxiety Last Admin: 06/24/25 18:52 Dose: 25 mg Lorazepam (Lorazepam 0.5 Mg Tablet) 0.5 mg PO TID [facility] Last Admin: 06/25/25 09:27 Dose: 0.5 mg Lurasidone HCl (Lurasidone Hcl 40 Mg Tablet) 40 mg PO DAILY@1700 [facility] Last Admin: 06/24/25 17:06 Dose: 40 mg Magnesium Hydroxide (Milk Of Magnesia 30 Ml Oral.Susp) 30 ml PO DAILY PRN PRN Reason: Constipation Naproxen (Naproxen 500 Mg Tablet) 500 mg PO BIDWM [facility] Last Admin: 06/25/25 09:27 Dose: 500 mg Nicotine Polacrilex (Nicotine Polacrilex 2 Mg Gum) 4 mg BUCCAL Q2H PRN PRN Reason: Nicotine Cravings Olanzapine (Olanzapine 5 Mg Tablet) 5 mg PO Q4H PRN PRN Reason: agitation Trazodone HCl (Trazodone Hcl 50 Mg Tablet) 50 mg PO BEDTIME MRX1 PRN PRN Reason: Insomnia Last Admin: 06/23/25 03:24 Dose: 50 mg Trazodone HCl (Trazodone Hcl 100 Mg Tablet) 100 mg PO BEDTIME [facility] Last Admin: 06/24/25 20:42 Dose: 100 mg Allergies Allergies Allergy/AdvReac Type Severity Reaction Status Date / Time No Known Allergies Allergy Verified 06/22/25 15:53 Assessment & Plan Assessment & Plan (1) Bipolar I disorder with catatonia: Status: Acute Code(s): F31.9 - Bipolar disorder, unspecified; F06.1 - Catatonic disorder due to known physiological condition Plan Mr. Davies is a 30 year-old male with hx of Bipolar Disorder, catatonia who was recently discharged from psych inpt unit in [place] 2 weeks ago and moved to his father's house as he is going through a divorce, was brought to [facility] ED due to exacerbation of catatonia. Per [facility] records, his father reported he (not the pt) decided to stop medication latuda and ativan as father thought doses were too high. Per [facility] records, pt was given ativan and later presented as more talkative. On the unit, pt is talking more, appears internally preoccupied, guarded, somewhat somatically preoccupied and mistrusting medical providers. We discussed risks, benefits and alternative treatment options, pt did agree to restart ativan, at this point will schedule ativan 0.5mg po TID- will monitor if he needs higher doses in even of worsening of catatonic symptoms. Will restart latuda for underlying psychosis. Pending further collateral information from father, prior psych admission and psychiatrist in [place]. PLAN 06/24 pt presents with less s/s of catatonia. more talkative and awareness that he is better. Pt complaining of overall pain which he has psoriatic arthritis. reports minimal relief from ibuprofen. both ESR/CRP elevated, seems like he is having a flare. Will give one time dose of toralac 15mg IM. will schedule naproxen 500mg po BID starting tomorrow. continue ativan 0.5mg po TID. latuda 40mg po dinnertime. PENDING COLLATERAL INFORMATION FROM FATHER AND RECORDS FROM [facility]. 06/25 Pt c/o of overall pain which is related to psoriatic arthritis, note that both ESR and CRP are elevated. VIPIN pending. He was given dose of toradol IM. scheduled naproxen. he has not seen rheumatology in a year or so. not on any biological med nor disease modifying agent for autoimmune condition. He presents with less s/s of catatonia, less s/s of psychosis and less paranoia. Increased insight into symptoms. Continue ativan 0.5mg po TID. continue Latuda 40mg po dinner, may consider increasing. Reason for continued inpatient stay Substantial Risk for: inability to function Time Spent With Patient Time: Total time managing care of this patient today ____ minutes.
[2025-06-25 20:00] VITALS: BP 114/70; PULSE 99; RESP 17; TEMP 36.3; O2SAT 98
[2025-06-26 07:38] VITALS: BP 137/81; PULSE 92; RESP 20; TEMP 36.2; O2SAT 95
[2025-06-26] MEDS: Betamethasone Dip Aug 0.05% Cr 15 GM TUBE 1 APPL TOPICAL (08:11)
[2025-06-26 19:43] VITALS: BP 116/58; PULSE 91; RESP 16; TEMP 36.1; O2SAT 98
--- NOTE | 2025-06-26 20:39 | HO.PSYCHPN ---
Subjective Subjective Date of Service: 06/26/25 Reason For Visit: crisis Subjective Notes: Conditional Voluntary Interim History: Pt sleeping about 7hrs. He reports pain related to autoimmune condition is increasing, naproxen not as effecetive so far but does not think ibuprofen was more effective. It does seem he is having a flare-up evicend by both ESR and CRP elevation. Pt continues to improve in terms o s/s of catatonia and psychosis and paranoid delusions. He reports he feels better, not hearing voices as much and I'm able to talk! His affect is brighter, non labile. He denies SI/HI. He reports had visit from mother and father and it went well. he is taking medications no side effects noted or reported. Review of Systems Review of Systems He reports pain all over, chronic. Yes all other systems are reviewed and are negative Mental Status Exam Mental Status Exam Narrative: Appearance: wearing hospital gown, fair hygiene, in NAD behavior: cooperative, poor eye contact, gaze at time fixed at wall Psychomotor: some retardation noted Speech: mostly clear, some delayed in response, spontaneous TP: mostly linear TC: feeling better, increase insight into illness and need for treatment Mood: better Affect: brighter, non labile SI: denies HI: denies VH/AH: less AH Delusions: less paranoid ideas Insight/judgment: improving x 2 Memory/cog: alert, oriented x 3. Diagnostics Vital Signs (24Hr): Vital Signs - 24 hr 06/26/25 07:38 06/26/25 19:43 Temperature 97.2 F 97 F Pulse Rate 92 91 Respiratory Rate 20 16 Blood Pressure 137/81 116/58 L Pulse Oximetry 95 98 Oxygen Delivery Method Room Air Room Air BMI result Body Mass Index 36.4 Labs 06/23/25 08:08 06/23/25 08:08 Medications Medications Current Medications Acetaminophen (Acetaminophen 325 Mg Tablet) 650 mg PO Q6H PRN PRN Reason: Headache/Pain, Scale 1-10 Last Admin: 06/26/25 18:48 Dose: 650 mg Al Hydroxide/Mg Hydroxide (Magnesium Hydrox/Alum Hydrox 30 Ml Oral.Susp) 30 ml PO Q6H PRN PRN Reason: Heartburn/Nausea Betamethasone Dipropion Augmented (Betamethasone Dip Aug 0.05% Cr 15 Gm Tube) 1 appl TOPICAL BID [facility]; Protocol Last Admin: 06/26/25 08:11 Dose: 1 appl Clotrimazole (Clotrimazole 1 % Cream 15 Gm Tube) 1 appl TOPICAL BID [facility]; Protocol Last Admin: 06/26/25 08:40 Dose: Not Given Hydroxyzine HCl (Hydroxyzine Hcl 25 Mg Tablet) 25 mg PO Q6H PRN PRN Reason: mild anxiety Last Admin: 06/25/25 20:24 Dose: 25 mg Lorazepam (Lorazepam 0.5 Mg Tablet) 0.5 mg PO TID [facility] Last Admin: 06/26/25 14:04 Dose: 0.5 mg Lurasidone HCl (Lurasidone Hcl 40 Mg Tablet) 40 mg PO DAILY@1700 [facility] Last Admin: 06/26/25 17:35 Dose: 40 mg Magnesium Hydroxide (Milk Of Magnesia 30 Ml Oral.Susp) 30 ml PO DAILY PRN PRN Reason: Constipation Naproxen (Naproxen 500 Mg Tablet) 500 mg PO BIDWM [facility] Last Admin: 06/26/25 16:54 Dose: 500 mg Nicotine Polacrilex (Nicotine Polacrilex 2 Mg Gum) 4 mg BUCCAL Q2H PRN PRN Reason: Nicotine Cravings Olanzapine (Olanzapine 5 Mg Tablet) 5 mg PO Q4H PRN PRN Reason: agitation Last Admin: 06/25/25 20:24 Dose: 5 mg Trazodone HCl (Trazodone Hcl 50 Mg Tablet) 50 mg PO BEDTIME MRX1 PRN PRN Reason: Insomnia Last Admin: 06/25/25 20:24 Dose: 50 mg Trazodone HCl (Trazodone Hcl 100 Mg Tablet) 100 mg PO BEDTIME [facility] Last Admin: 06/25/25 20:24 Dose: 100 mg Allergies Allergies Allergy/AdvReac Type Severity Reaction Status Date / Time No Known Allergies Allergy Verified 06/22/25 15:53 Assessment & Plan Assessment & Plan (1) Bipolar I disorder with catatonia: Status: Acute Code(s): F31.9 - Bipolar disorder, unspecified; F06.1 - Catatonic disorder due to known physiological condition Plan Mr. Davies is a 30 year-old male with hx of Bipolar Disorder, catatonia who was recently discharged from psych inpt unit in [place] 2 weeks ago and moved to his father's house as he is going through a divorce, was brought to [facility] ED due to exacerbation of catatonia. Per [facility] records, his father reported he (not the pt) decided to stop medication latuda and ativan as father thought doses were too high. Per [facility] records, pt was given ativan and later presented as more talkative. On the unit, pt is talking more, appears internally preoccupied, guarded, somewhat somatically preoccupied and mistrusting medical providers. We discussed risks, benefits and alternative treatment options, pt did agree to restart ativan, at this point will schedule ativan 0.5mg po TID- will monitor if he needs higher doses in even of worsening of catatonic symptoms. Will restart latuda for underlying psychosis. Pending further collateral information from father, prior psych admission and psychiatrist in [place]. PLAN 06/24 pt presents with less s/s of catatonia. more talkative and awareness that he is better. Pt complaining of overall pain which he has psoriatic arthritis. reports minimal relief from ibuprofen. both ESR/CRP elevated, seems like he is having a flare. Will give one time dose of toralac 15mg IM. will schedule naproxen 500mg po BID starting tomorrow. continue ativan 0.5mg po TID. latuda 40mg po dinnertime. PENDING COLLATERAL INFORMATION FROM FATHER AND RECORDS FROM [facility]. 06/25 Pt c/o of overall pain which is related to psoriatic arthritis, note that both ESR and CRP are elevated. VIPIN pending. He was given dose of toradol IM. scheduled naproxen. he has not seen rheumatology in a year or so. not on any biological med nor disease modifying agent for autoimmune condition. He presents with less s/s of catatonia, less s/s of psychosis and less paranoia. Increased insight into symptoms. Continue ativan 0.5mg po TID. continue Latuda 40mg po dinner, may consider increasing. 06/26 less s/s of catatonia, less psychosis and paranoid delusions. improving insight into illness. NO si/hi. No aggression. He reports pain related to autoimmune condition- psoriatic arthritis not as well controlled with naproxen. we discussed another dose of toradol as he seems to be going through flare up- both elevation of ESR/CRP. further management consult hospitalist until he is reconnected with rheumatology. VIPIN pending. Reason for continued inpatient stay Substantial Risk for: inability to function Time Spent With Patient Time: Total time managing care of this patient today ____ minutes.
[2025-06-27 07:46] VITALS: BP 134/68; PULSE 91; RESP 16; TEMP 36.2; O2SAT 97
[2025-06-27] MEDS: Betamethasone Dip Aug 0.05% Cr 15 GM TUBE 1 APPL TOPICAL ×2 (08:49→21:16)
--- NOTE | 2025-06-27 13:48 | HO.PSYCHPN ---
Subjective Subjective Date of Service: 06/27/25 Reason For Visit: crisis Subjective Notes: Conditional Voluntary Interim History: Active on unit. social with peers. Patient reports feeling better than when I came in ; pt stated, I feel like myself and more extroverted . Patient reports medications are helping with auditory hallucinations. Patient denies SI/HI/VH/AH. Planning for discharge this week if continues to improve; pt aware. continue tx plan. Medication Compliance: Yes Side effects from medications: No Attending Groups: Yes Mental Status Exam Mental Status Exam Narrative: Pt is alert and oriented; behavior is cooperative and calm; dressed in casual attire; mood is described as better ; eye contact appropriate; Speech is normal rate, volume and not pressured; thought process is organized; Thought content is on tx; denies SI/HI/VH/AH. Diagnostics Vital Signs (24Hr): Vital Signs - 24 hr 06/26/25 19:43 06/27/25 07:46 Temperature 97 F 97.2 F Pulse Rate 91 91 Respiratory Rate 16 16 Blood Pressure 116/58 L 134/68 Pulse Oximetry 98 97 Oxygen Delivery Method Room Air Room Air BMI result Body Mass Index 36.4 Labs 06/23/25 08:08 06/23/25 08:08 Medications Medications Current Medications Acetaminophen (Acetaminophen 325 Mg Tablet) 650 mg PO Q6H PRN PRN Reason: Headache/Pain, Scale 1-10 Last Admin: 06/27/25 00:54 Dose: 650 mg Al Hydroxide/Mg Hydroxide (Magnesium Hydrox/Alum Hydrox 30 Ml Oral.Susp) 30 ml PO Q6H PRN PRN Reason: Heartburn/Nausea Betamethasone Dipropion Augmented (Betamethasone Dip Aug 0.05% Cr 15 Gm Tube) 1 appl TOPICAL BID [facility]; Protocol Last Admin: 06/27/25 08:49 Dose: 1 appl Clotrimazole (Clotrimazole 1 % Cream 15 Gm Tube) 1 appl TOPICAL BID [facility]; Protocol Last Admin: 06/27/25 08:22 Dose: Not Given Hydroxyzine HCl (Hydroxyzine Hcl 25 Mg Tablet) 25 mg PO Q6H PRN PRN Reason: mild anxiety Last Admin: 06/27/25 09:47 Dose: 25 mg Lorazepam (Lorazepam 0.5 Mg Tablet) 0.5 mg PO TID [facility] Last Admin: 06/27/25 08:21 Dose: 0.5 mg Lurasidone HCl (Lurasidone Hcl 40 Mg Tablet) 40 mg PO DAILY@1700 [facility] Last Admin: 06/26/25 17:35 Dose: 40 mg Magnesium Hydroxide (Milk Of Magnesia 30 Ml Oral.Susp) 30 ml PO DAILY PRN PRN Reason: Constipation Naproxen (Naproxen 500 Mg Tablet) 500 mg PO BIDWM [facility] Last Admin: 06/27/25 08:21 Dose: 500 mg Nicotine Polacrilex (Nicotine Polacrilex 2 Mg Gum) 4 mg BUCCAL Q2H PRN PRN Reason: Nicotine Cravings Olanzapine (Olanzapine 5 Mg Tablet) 5 mg PO Q4H PRN PRN Reason: agitation Last Admin: 06/27/25 09:47 Dose: 5 mg Trazodone HCl (Trazodone Hcl 50 Mg Tablet) 50 mg PO BEDTIME MRX1 PRN PRN Reason: Insomnia Last Admin: 06/27/25 00:53 Dose: 50 mg Trazodone HCl (Trazodone Hcl 100 Mg Tablet) 100 mg PO BEDTIME [facility] Last Admin: 06/27/25 00:53 Dose: 100 mg Allergies Allergies Allergy/AdvReac Type Severity Reaction Status Date / Time No Known Allergies Allergy Verified 06/22/25 15:53 Assessment & Plan Assessment & Plan (1) Bipolar I disorder with catatonia: Status: Acute Code(s): F31.9 - Bipolar disorder, unspecified; F06.1 - Catatonic disorder due to known physiological condition Plan Mr. Davies is a 30 year-old male with hx of Bipolar Disorder, catatonia who was recently discharged from psych inpt unit in [place] 2 weeks ago and moved to his father's house as he is going through a divorce, was brought to [facility] ED due to exacerbation of catatonia. Per [facility] records, his father reported he (not the pt) decided to stop medication latuda and ativan as father thought doses were too high. Per [facility] records, pt was given ativan and later presented as more talkative. On the unit, pt is talking more, appears internally preoccupied, guarded, somewhat somatically preoccupied and mistrusting medical providers. We discussed risks, benefits and alternative treatment options, pt did agree to restart ativan, at this point will schedule ativan 0.5mg po TID- will monitor if he needs higher doses in even of worsening of catatonic symptoms. Will restart latuda for underlying psychosis. Pending further collateral information from father, prior psych admission and psychiatrist in [place]. PLAN 06/24 pt presents with less s/s of catatonia. more talkative and awareness that he is better. Pt complaining of overall pain which he has psoriatic arthritis. reports minimal relief from ibuprofen. both ESR/CRP elevated, seems like he is having a flare. Will give one time dose of toralac 15mg IM. will schedule naproxen 500mg po BID starting tomorrow. continue ativan 0.5mg po TID. latuda 40mg po dinnertime. PENDING COLLATERAL INFORMATION FROM FATHER AND RECORDS FROM [facility]. 06/25 Pt c/o of overall pain which is related to psoriatic arthritis, note that both ESR and CRP are elevated. VIPIN pending. He was given dose of toradol IM. scheduled naproxen. he has not seen rheumatology in a year or so. not on any biological med nor disease modifying agent for autoimmune condition. He presents with less s/s of catatonia, less s/s of psychosis and less paranoia. Increased insight into symptoms. Continue ativan 0.5mg po TID. continue Latuda 40mg po dinner, may consider increasing. 06/26 less s/s of catatonia, less psychosis and paranoid delusions. improving insight into illness. NO si/hi. No aggression. He reports pain related to autoimmune condition- psoriatic arthritis not as well controlled with naproxen. we discussed another dose of toradol as he seems to be going through flare up- both elevation of ESR/CRP. further management consult hospitalist until he is reconnected with rheumatology. VIPIN pending. 06/27: Active on unit. social with peers. Patient reports feeling better than when I came in ; pt stated, I feel like myself and more extroverted . Patient reports medications are helping with auditory hallucinations. Patient denies SI/HI/VH/AH. Planning for discharge this week if continues to improve; pt aware. continue tx plan. Patient educated on: diagnosis, medication risk/benefits and therapeutic strategies Reason for continued inpatient stay Substantial Risk for: med/psych decompensation Time Spent With Patient Time: Total time managing care of this patient today _20___ minutes.
--- NOTE | 2025-06-27 14:49 | HO.PM.IMPN ---
Subjective Subjective Date of Service: 06/27/25 Interval History: Patient is seen in follow up phimosis. Patient reports a areas overall improving, was seen by Urology, betamethasone cream applied twice daily. Patient still has small slits on foreskin which are very painful for him especially when he voids. Recommend A and D alternating with scheduled betamethasone. Patient denies any issues with urination. Recent UA was negative for any infection. Reports occasional burning with urination due to open areas. He otherwise feels well. Review of Systems Denies any shortness of breath, chest pain, headaches, dysuria, abdominal pain or discomfort, nausea, vomiting or diarrhea. Denies fever or chills. Physical Exam Exam: Exam: Alert and oriented X3, calm and cooperative. Answers questions. Neuro: CN II-X11 intact, no deficits, visual acuity intact Cardiac: S1 S2 RRR, No ectopy Pulmonary: lungs clear to auscultation, No increased WOB. Abdominal: BS active in all 4 quadrants, no guarding or tenderness MSK: Strength 5/5 upper and lower extremities : Deferred Extremities: No edema in lower extremities Psych: Mood stable, Quiet and cooperative. Skin: Warm and dry, Intact Vital Signs: Vital Signs: Last Vital Signs Temp 97.2 F 06/27/25 07:46 Pulse 91 06/27/25 07:46 Resp 16 06/27/25 07:46 BP 134/68 06/27/25 07:46 Pulse Ox 97 06/27/25 07:46 O2 Del Method Room Air 06/27/25 07:46 BMI result Body Mass Index 36.4 Objective Data Active Medications Acetaminophen (Acetaminophen 325 Mg Tablet) 650 mg PO Q6H PRN PRN Reason: Headache/Pain, Scale 1-10 Last Admin: 06/27/25 00:54 Dose: 650 mg Documented By: ARMAAN Al Hydroxide/Mg Hydroxide (Magnesium Hydrox/Alum Hydrox 30 Ml Oral.Susp) 30 ml PO Q6H PRN PRN Reason: Heartburn/Nausea Betamethasone Dipropion Augmented (Betamethasone Dip Aug 0.05% Cr 15 Gm Tube) 1 appl TOPICAL BID [facility]; Protocol Last Admin: 06/27/25 08:49 Dose: 1 appl Documented By: TIANNA Clotrimazole (Clotrimazole 1 % Cream 15 Gm Tube) 1 appl TOPICAL BID [facility]; Protocol Last Admin: 06/27/25 08:22 Dose: Not Given Documented By: TIANNA Non-Admin Reason: Patient Refused Hydroxyzine HCl (Hydroxyzine Hcl 25 Mg Tablet) 25 mg PO Q6H PRN PRN Reason: mild anxiety Last Admin: 06/27/25 09:47 Dose: 25 mg Documented By: TIANNA Lorazepam (Lorazepam 0.5 Mg Tablet) 0.5 mg PO TID [facility] Last Admin: 06/27/25 08:21 Dose: 0.5 mg Documented By: TIANNA Lurasidone HCl (Lurasidone Hcl 40 Mg Tablet) 40 mg PO DAILY@1700 [facility] Last Admin: 06/26/25 17:35 Dose: 40 mg Documented By: NICOLETALLuigi Magnesium Hydroxide (Milk Of Magnesia 30 Ml Oral.Susp) 30 ml PO DAILY PRN PRN Reason: Constipation Naproxen (Naproxen 500 Mg Tablet) 500 mg PO BIDWM [facility] Last Admin: 06/27/25 08:21 Dose: 500 mg Documented By: TIANNA Nicotine Polacrilex (Nicotine Polacrilex 2 Mg Gum) 4 mg BUCCAL Q2H PRN PRN Reason: Nicotine Cravings Olanzapine (Olanzapine 5 Mg Tablet) 5 mg PO Q4H PRN PRN Reason: agitation Last Admin: 06/27/25 09:47 Dose: 5 mg Documented By: TIANNA Trazodone HCl (Trazodone Hcl 50 Mg Tablet) 50 mg PO BEDTIME MRX1 PRN PRN Reason: Insomnia Last Admin: 06/27/25 00:53 Dose: 50 mg Documented By: ARMAAN Trazodone HCl (Trazodone Hcl 100 Mg Tablet) 100 mg PO BEDTIME [facility] Last Admin: 06/27/25 00:53 Dose: 100 mg Documented By: ARMAAN 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 Pt has hx of Bipolar depression and anxiety. Now admitted for psychiatric stabilization. Psoriatic Arthritis Taltz injectable Q28 days-Patient can bring from home. 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 Mild anemia ESR 28, CRP elevated at 2.12 Left foot/ ankle pain Xray of foot and ankle negative for fracture or abnormality Phimosis with red, dark rash of scrotum (TInea Cruris) Betamethasone cream per Urology- improving with this UA negative for infection A&D cream b.i.d. alternating with the betamethasone for open wounds. Thank you for allowing me to participate in the care of this patient. Will follow with you, please notify medical provider with any changes in condition or concerns. Quality Stroke Does the patient have a stroke diagnosis?: No VTE Prior VTE?: No VTE Risk Level:: Medical - low VTE Device Contraindication: Treatment Not Indicated VTE Drug Contraindication: Treatment Not Indicated
--- NOTE | 2025-06-27 19:06 | PC.NURSE ---
Pt says he typically receives an injection for his psoriatic arthritis and hospitalist would order if brought to the hospital. Pt says joseph sent to [place] address. Pt agreed to wait until he is discharged on
[2025-06-27 19:40] VITALS: BP 100/56; PULSE 83; RESP 18; TEMP 36.1; O2SAT 99
[2025-06-28 08:00] VITALS: BP 134/81; PULSE 96; RESP 16; O2SAT 98
[2025-06-28] MEDS: Betamethasone Dip Aug 0.05% Cr 15 GM TUBE 1 APPL TOPICAL (08:16)
[2025-06-28 13:44] LABS: Anti Nuclear Antibody Pattern Nuclear, Homogeneous; Anti Nuclear Antibody Screen POSITIVE (NEGATIVE); Anti Nuclear Antibody Titer 1:40 titer
--- NOTE | 2025-06-28 14:46 | HO.PSYCHPN ---
Subjective Subjective Date of Service: 06/28/25 Reason For Visit: crisis Subjective Notes: Conditional Voluntary Interim History: Active on unit. social with peers. attending groups. Patient reports feeling okay today; he reports poor sleep last night d/t waking up with a panic attack . Patient reports this occurs every so often . Patient denies SI/HI/VH/AH. Plan to discharge on and has a intake with PHP on Friday; pt aware. Continue tx plan. Medication Compliance: Yes Side effects from medications: No Attending Groups: Yes Mental Status Exam Mental Status Exam Narrative: Pt is alert and oriented; behavior is cooperative and calm; dressed in casual attire; mood is described as okay ; eye contact appropriate; Speech is normal rate, volume and not pressured; thought process is organized; Thought content is on tx/discharge; denies SI/HI/VH/AH. Diagnostics Vital Signs (24Hr): Vital Signs - 24 hr 06/27/25 19:40 06/28/25 08:00 Temperature 96.9 F Pulse Rate 83 96 Respiratory Rate 18 16 Blood Pressure 100/56 L 134/81 Pulse Oximetry 99 98 Oxygen Delivery Method Room Air Room Air BMI result Body Mass Index 36.4 Labs 06/23/25 08:08 06/23/25 08:08 Labs: Laboratory Results - last 48 hr 06/23/25 12:15 VIPIN Screen POSITIVE A VIPIN Titer 1:40 H VIPIN Pattern Nuclear, Homogeneous A Medications Medications Current Medications Acetaminophen (Acetaminophen 325 Mg Tablet) 650 mg PO Q6H PRN PRN Reason: Headache/Pain, Scale 1-10 Last Admin: 06/28/25 14:11 Dose: 650 mg Al Hydroxide/Mg Hydroxide (Magnesium Hydrox/Alum Hydrox 30 Ml Oral.Susp) 30 ml PO Q6H PRN PRN Reason: Heartburn/Nausea Betamethasone Dipropion Augmented (Betamethasone Dip Aug 0.05% Cr 15 Gm Tube) 1 appl TOPICAL BID SY; Protocol Last Admin: 06/28/25 08:16 Dose: 1 appl Hydroxyzine HCl (Hydroxyzine Hcl 25 Mg Tablet) 25 mg PO Q6H PRN PRN Reason: mild anxiety Last Admin: 06/28/25 05:28 Dose: 25 mg Lorazepam (Lorazepam 0.5 Mg Tablet) 0.5 mg PO TID SY Last Admin: 06/28/25 14:11 Dose: 0.5 mg Lurasidone HCl (Lurasidone Hcl 40 Mg Tablet) 40 mg PO DAILY@1700 [facility] Last Admin: 06/27/25 17:10 Dose: 40 mg Magnesium Hydroxide (Milk Of Magnesia 30 Ml Oral.Susp) 30 ml PO DAILY PRN PRN Reason: Constipation Naproxen (Naproxen 500 Mg Tablet) 500 mg PO BIDWM [facility] Last Admin: 06/28/25 08:14 Dose: 500 mg Nicotine Polacrilex (Nicotine Polacrilex 2 Mg Gum) 4 mg BUCCAL Q2H PRN PRN Reason: Nicotine Cravings Olanzapine (Olanzapine 5 Mg Tablet) 5 mg PO Q4H PRN PRN Reason: agitation Last Admin: 06/27/25 23:14 Dose: 5 mg Trazodone HCl (Trazodone Hcl 50 Mg Tablet) 50 mg PO BEDTIME MRX1 PRN PRN Reason: Insomnia Last Admin: 06/27/25 23:14 Dose: 50 mg Trazodone HCl (Trazodone Hcl 100 Mg Tablet) 100 mg PO BEDTIME [facility] Last Admin: 06/27/25 21:15 Dose: 100 mg Vitamin A/Vitamin D (A And D Ointment 56.7 Gm Tube) 1 appl TOPICAL BID PRN; Protocol PRN Reason: penis Allergies Allergies Allergy/AdvReac Type Severity Reaction Status Date / Time No Known Allergies Allergy Verified 06/22/25 15:53 Assessment & Plan Assessment & Plan (1) Bipolar I disorder with catatonia: Status: Acute Code(s): F31.9 - Bipolar disorder, unspecified; F06.1 - Catatonic disorder due to known physiological condition Plan Mr. Davies is a 30 year-old male with hx of Bipolar Disorder, catatonia who was recently discharged from psych inpt unit in [place] 2 weeks ago and moved to his father's house as he is going through a divorce, was brought to [facility] ED due to exacerbation of catatonia. Per [facility] records, his father reported he (not the pt) decided to stop medication latuda and ativan as father thought doses were too high. Per [facility] records, pt was given ativan and later presented as more talkative. On the unit, pt is talking more, appears internally preoccupied, guarded, somewhat somatically preoccupied and mistrusting medical providers. We discussed risks, benefits and alternative treatment options, pt did agree to restart ativan, at this point will schedule ativan 0.5mg po TID- will monitor if he needs higher doses in even of worsening of catatonic symptoms. Will restart latuda for underlying psychosis. Pending further collateral information from father, prior psych admission and psychiatrist in [place]. PLAN 06/24 pt presents with less s/s of catatonia. more talkative and awareness that he is better. Pt complaining of overall pain which he has psoriatic arthritis. reports minimal relief from ibuprofen. both ESR/CRP elevated, seems like he is having a flare. Will give one time dose of toralac 15mg IM. will schedule naproxen 500mg po BID starting tomorrow. continue ativan 0.5mg po TID. latuda 40mg po dinnertime. PENDING COLLATERAL INFORMATION FROM FATHER AND RECORDS FROM [facility]. 06/25 Pt c/o of overall pain which is related to psoriatic arthritis, note that both ESR and CRP are elevated. VIPIN pending. He was given dose of toradol IM. scheduled naproxen. he has not seen rheumatology in a year or so. not on any biological med nor disease modifying agent for autoimmune condition. He presents with less s/s of catatonia, less s/s of psychosis and less paranoia. Increased insight into symptoms. Continue ativan 0.5mg po TID. continue Latuda 40mg po dinner, may consider increasing. 06/26 less s/s of catatonia, less psychosis and paranoid delusions. improving insight into illness. NO si/hi. No aggression. He reports pain related to autoimmune condition- psoriatic arthritis not as well controlled with naproxen. we discussed another dose of toradol as he seems to be going through flare up- both elevation of ESR/CRP. further management consult hospitalist until he is reconnected with rheumatology. VIPIN pending. 06/27: Active on unit. social with peers. Patient reports feeling better than when I came in ; pt stated, I feel like myself and more extroverted . Patient reports medications are helping with auditory hallucinations. Patient denies SI/HI/VH/AH. Planning for discharge this week if continues to improve; pt aware. continue tx plan. 06/28: Active on unit. social with peers. attending groups. Patient reports feeling okay today; he reports poor sleep last night d/t waking up with a panic attack . Patient reports this occurs every so often . Patient denies SI/HI/VH/AH. Plan to discharge on and has a intake with PHP on Friday; pt aware. Continue tx plan. Patient educated on: diagnosis and medication risk/benefits Reason for continued inpatient stay Substantial Risk for: med/psych decompensation Time Spent With Patient Time: Total time managing care of this patient today _20___ minutes.
[2025-06-28 20:00] VITALS: BP 115/63; PULSE 94; RESP 16; TEMP 36.8; O2SAT 97
[2025-06-29 07:54] VITALS: BP 122/69; PULSE 101; RESP 16; TEMP 36.8; O2SAT 97
[2025-06-29] MEDS: Betamethasone Dip Aug 0.05% Cr 15 GM TUBE 1 APPL TOPICAL (08:38)
--- NOTE | 2025-06-29 10:20 | P.PNPSI_ITS ---
Subjective Subjective Date of Service: 06/29/25 Reason For Visit: crisis Subjective Notes: Conditional Voluntary Interim History: Active on unit. social with peers. attending groups. Patient reports feeling good today; pt reports he is looking forward to discharge and attending PHP. denies SI/HI/VH/AH. He reports sleeping well last night. Patient reports he plans on following up with his outpatient providers. Medication Compliance: Yes Side effects from medications: No Attending Groups: Yes Mental Status Exam Mental Status Exam Narrative: Pt is alert and oriented; behavior is cooperative and calm; dressed in casual attire; mood is described as good ; eye contact appropriate; Speech is normal rate, volume and not pressured; thought process is organized; Thought content is on tx/discharge; denies SI/HI/VH/AH. Diagnostics Vital Signs (24Hr): Vital Signs - 24 hr 06/28/25 20:00 06/29/25 07:54 Temperature 98.3 F 98.2 F Pulse Rate 94 101 H Respiratory Rate 16 16 Blood Pressure 115/63 122/69 Pulse Oximetry 97 97 Oxygen Delivery Method Room Air Room Air BMI result Body Mass Index 36.4 Labs 06/23/25 08:08 06/23/25 08:08 Labs: Laboratory Results - last 48 hr 06/23/25 12:15 VIPIN Screen POSITIVE A VIPIN Titer 1:40 H VIPIN Titer 2 TNP VIPIN Titer 3 TNP VIPIN Pattern Nuclear, Homogeneous A VIPIN Pattern 2 TNP VIPIN Pattern 3 TNP Medications Medications Current Medications Acetaminophen (Acetaminophen 325 Mg Tablet) 650 mg PO Q6H PRN PRN Reason: Headache/Pain, Scale 1-10 Last Admin: 06/29/25 04:54 Dose: 650 mg Al Hydroxide/Mg Hydroxide (Magnesium Hydrox/Alum Hydrox 30 Ml Oral.Susp) 30 ml PO Q6H PRN PRN Reason: Heartburn/Nausea Betamethasone Dipropion Augmented (Betamethasone Dip Aug 0.05% Cr 15 Gm Tube) 1 appl TOPICAL BID SY; Protocol Last Admin: 06/29/25 08:38 Dose: 1 appl Hydroxyzine HCl (Hydroxyzine Hcl 25 Mg Tablet) 25 mg PO Q6H PRN PRN Reason: mild anxiety Last Admin: 06/28/25 20:28 Dose: 25 mg Lorazepam (Lorazepam 0.5 Mg Tablet) 0.5 mg PO TID SY Last Admin: 06/29/25 08:37 Dose: 0.5 mg Lurasidone HCl (Lurasidone Hcl 40 Mg Tablet) 40 mg PO DAILY@1700 [facility] Last Admin: 06/28/25 17:29 Dose: 40 mg Magnesium Hydroxide (Milk Of Magnesia 30 Ml Oral.Susp) 30 ml PO DAILY PRN PRN Reason: Constipation Naproxen (Naproxen 500 Mg Tablet) 500 mg PO BIDWM [facility] Last Admin: 06/29/25 08:37 Dose: 500 mg Nicotine Polacrilex (Nicotine Polacrilex 2 Mg Gum) 4 mg BUCCAL Q2H PRN PRN Reason: Nicotine Cravings Olanzapine (Olanzapine 5 Mg Tablet) 5 mg PO Q4H PRN PRN Reason: agitation Last Admin: 06/28/25 20:28 Dose: 5 mg Trazodone HCl (Trazodone Hcl 50 Mg Tablet) 50 mg PO BEDTIME MRX1 PRN PRN Reason: Insomnia Last Admin: 06/28/25 20:28 Dose: 50 mg Trazodone HCl (Trazodone Hcl 100 Mg Tablet) 100 mg PO BEDTIME SY Last Admin: 06/28/25 20:12 Dose: 100 mg Vitamin A/Vitamin D (A And D Ointment 56.7 Gm Tube) 1 appl TOPICAL BID PRN; Protocol PRN Reason: penis Allergies Allergies Allergy/AdvReac Type Severity Reaction Status Date / Time No Known Allergies Allergy Verified 06/22/25 15:53 Assessment & Plan Assessment & Plan (1) Bipolar I disorder with catatonia: Status: Acute Code(s): F31.9 - Bipolar disorder, unspecified; F06.1 - Catatonic disorder due to known physiological condition Plan Mr. Davies is a 30 year-old male with hx of Bipolar Disorder, catatonia who was recently discharged from psych inpt unit in [place] 2 weeks ago and moved to his father's house as he is going through a divorce, was brought to [facility] ED due to exacerbation of catatonia. Per [facility] records, his father reported he (not the pt) decided to stop medication latuda and ativan as father thought doses were too high. Per [facility] records, pt was given ativan and later presented as more talkative. On the unit, pt is talking more, appears internally preoccupied, guarded, somewhat somatically preoccupied and mistrusting medical providers. We discussed risks, benefits and alternative treatment options, pt did agree to restart ativan, at this point will schedule ativan 0.5mg po TID- will monitor if he needs higher doses in even of worsening of catatonic symptoms. Will restart latuda for underlying psychosis. Pending further collateral information from father, prior psych admission and psychiatrist in [place]. PLAN 06/24 pt presents with less s/s of catatonia. more talkative and awareness that he is better. Pt complaining of overall pain which he has psoriatic arthritis. reports minimal relief from ibuprofen. both ESR/CRP elevated, seems like he is having a flare. Will give one time dose of toralac 15mg IM. will schedule naproxen 500mg po BID starting tomorrow. continue ativan 0.5mg po TID. latuda 40mg po dinnertime. PENDING COLLATERAL INFORMATION FROM FATHER AND RECORDS FROM [facility]. 06/25 Pt c/o of overall pain which is related to psoriatic arthritis, note that both ESR and CRP are elevated. VIPIN pending. He was given dose of toradol IM. scheduled naproxen. he has not seen rheumatology in a year or so. not on any biological med nor disease modifying agent for autoimmune condition. He presents with less s/s of catatonia, less s/s of psychosis and less paranoia. Increased insight into symptoms. Continue ativan 0.5mg po TID. continue Latuda 40mg po dinner, may consider increasing. 06/26 less s/s of catatonia, less psychosis and paranoid delusions. improving insight into illness. NO si/hi. No aggression. He reports pain related to autoimmune condition- psoriatic arthritis not as well controlled with naproxen. we discussed another dose of toradol as he seems to be going through flare up- both elevation of ESR/CRP. further management consult hospitalist until he is reconnected with rheumatology. VIPIN pending. 06/27: Active on unit. social with peers. Patient reports feeling better than when I came in ; pt stated, I feel like myself and more extroverted . Patient reports medications are helping with auditory hallucinations. Patient denies SI/HI/VH/AH. Planning for discharge this week if continues to improve; pt aware. continue tx plan. 06/28: Active on unit. social with peers. attending groups. Patient reports feeling okay today; he reports poor sleep last night d/t waking up with a panic attack . Patient reports this occurs every so often . Patient denies SI/HI/VH/AH. Plan to discharge on and has a intake with PHP on Friday; pt aware. Continue tx plan. 06/29: Active on unit. social with peers. attending groups. Patient reports feeling good today; pt reports he is looking forward to discharge and attending PHP. denies SI/HI/VH/AH. He reports sleeping well last night. Patient reports he plans on following up with his outpatient providers. Patient educated on: diagnosis and medication risk/benefits Reason for continued inpatient stay Substantial Risk for: stable for discharge Time Spent With Patient Time: Total time managing care of this patient today _20___ minutes.
[2025-06-29 20:00] VITALS: BP 124/73; PULSE 95; RESP 16; TEMP 36.3; O2SAT 98
[2025-06-30 07:00] VITALS: BMI 36.2
[2025-06-30 08:13] VITALS: BP 110/60; PULSE 91; RESP 18; TEMP 36.4; O2SAT 98
--- NOTE | 2025-06-30 10:05 | P.DS_ITS ---
DS: Providers Provider Date of Service: 06/30/25 Date of admission: 06/22/25 15:47 Date of discharge: 06/30/25 Primary care physician: Unknown Physician Admitting clinician: Lina Varela Attending physician on admission: Shubham Carey Consults: 06/22/25 15:53 Consult to Hospitalist Routine Comment: Consulting Provider: [facility] Hospitalists Reason For Exam: new admit, H&P 06/22/25 20:19 Consult to Urology Routine Consulting Provider: [facility] Urology Services Reason for consultation: possible phimosis, red dark discoloration involving scrotum/ external penis Attending physician on discharge: Shubham Carey Discharging clinician: Crystal Shine DS: Diagnosis Discharge Diagnosis (1) Bipolar I disorder with catatonia: Status: Acute DS: Medications Discharge Medications Home Medications: Previous Rx's ?Medication ?Instructions ?Recorded betamethasone, augmented 0.05 % 1 appl topical BID 7 d ays #15 grams 06/29/25 topical cream lorazepam 0.5 mg tablet 0.5 mg PO TID 30 days #90 ta bs 06/29/25 lurasidone 40 mg tablet 40 mg PO DAILY@1700 30 days #30 06/29/25 tabs naproxen 500 mg tablet 500 mg PO BIDWM 7 days #14 t abs 06/29/25 trazodone 100 mg tablet 100 mg PO BEDTIME 30 days #3 0 tabs 06/29/25 Mental Status Exam Mental Status Exam Narrative: Pt is alert and oriented; behavior is cooperative and calm; dressed in casual attire; mood is described as good ; eye contact appropriate; Speech is normal rate, volume and not pressured; thought process is organized; Thought content is on tx/discharge; denies SI/HI/VH/AH. Data Data Completed and Pending Completed studies during hospitalization [Text1]: 06/23/25 06/23/25 12:15 15:32 Troponin I High Sens < 2.7 VIPIN Screen POSITIVE A VIPIN Titer 1:40 H VIPIN Titer 2 TNP VIPIN Titer 3 TNP VIPIN Pattern Nuclear, Homogeneous A VIPIN Pattern 2 TNP VIPIN Pattern 3 TNP DS: Summary Hospital Course Hospital Course: Mr. Davies is a 30 year-old male with hx of bipolar disorder who brought by father to [facility] ED due to presenting with s/s of catatonia including mutism, standing at night in the shower, not moving nor talking. Per father, pt has hx of catatonia, and bipolar disorder. He recently came from [place] to [place] as wants a and patient not able to care for himself. Per [facility] records, father thought current psychotropic medications were too high doses and decided to stop them including ativan 2mg po daily and latuda. Pt was discharged from psychiatric unit in [place] about 2 weeks ago. Pertinent labs completed in the ED in [place]: CBC without leokopenia/leukocytosis, normocytic anemia with stable H&H. CMP without electrolyte abnormalities, BUN 9, Cr 0.60, creatinine clearance 133. EKG normal sinus rhythm, possible ventricular hypertrophy, Qtc 402ms. Utox positive for THC. On the unit, pt presents with some delayed in response, but appears more talkative than described at [facility]. He reports his problems started when he started having generalized pain all over. He reports my mind is going on too fast because I have been in pain for a long time untreated. He adds I don't know how to explain it. I don't look like I am in pain, because I contain the pain. He has been dx with psoriatic arthritis. He reports he has gone under extensive work up to rule out autoimmune conditions. He reports he does not belive doctors anymore. He reports he has been diagnosed with Bipolar Disorder which he reports he is also suspicious of. He reports they stopped giving medications for pain and instead gave him psychiatric medications. He reports he hears voices, when asked to elaborate he states I don't know how to explain. He denies visual hallucinations. He has an underlying suspicious about the his medications and recommendation from his providers. He reports he does not know whether he will stay in [place] or not. He is originally from [place] and his parents are here. He denies SI/HI. He reports fair sleep. Mr. Davies is a 30 year-old male with hx of Bipolar Disorder, catatonia who was recently discharged from psych inpt unit in [place] 2 weeks ago and moved to his father's house as he is going through a divorce, was brought to [facility] ED due to exacerbation of catatonia. Per [facility] records, his father reported he (not the pt) decided to stop medication latuda and ativan as father thought doses were too high. Per [facility] records, pt was given ativan and later presented as more talkative. On the unit, pt is talking more, appears internally preoccupied, guarded, somewhat somatically preoccupied and mistrusting medical providers. We discussed risks, benefits and alternative treatment options, pt did agree to restart ativan, at this point will schedule ativan 0.5mg po TID- will monitor if he needs higher doses in even of worsening of catatonic symptoms. Will restart latuda for underlying psychosis. Pending further collateral information from father, prior psych admission and psychiatrist in [place]. pt presents with less s/s of catatonia. more talkative and awareness that he is better. Pt complaining of overall pain which he has psoriatic arthritis. reports minimal relief from ibuprofen. both ESR/CRP elevated, seems like he is having a flare. Will give one time dose of toralac 15mg IM. will schedule naproxen 500mg po BID starting tomorrow. continue ativan 0.5mg po TID. latuda 40mg po dinnertime. PENDING COLLATERAL INFORMATION FROM FATHER AND RECORDS FROM [facility]. Pt c/o of overall pain which is related to psoriatic arthritis, note that both ESR and CRP are elevated. VIPIN pending. He was given dose of toradol IM. scheduled naproxen. he has not seen rheumatology in a year or so. not on any biological med nor disease modifying agent for autoimmune condition. He presents with less s/s of catatonia, less s/s of psychosis and less paranoia. Increased insight into symptoms. Continue ativan 0.5mg po TID. continue Latuda 40mg po dinner, may consider increasing. less s/s of catatonia, less psychosis and paranoid delusions. improving insight into illness. NO si/hi. No aggression. He reports pain related to autoimmune condition- psoriatic arthritis not as well controlled with naproxen. we discussed another dose of toradol as he seems to be going through flare up- both elevation of ESR/CRP. further management consult hospitalist until he is reconnected with rheumatology. VIPIN pending. Active on unit. social with peers. Patient reports feeling better than when I came in ; pt stated, I feel like myself and more extroverted . Patient reports medications are helping with auditory hallucinations. Patient denies SI/HI/VH/AH. Planning for discharge this week if continues to improve; pt aware. continue tx plan. Active on unit. social with peers. attending groups. Patient reports feeling okay today; he reports poor sleep last night d/t waking up with a panic attack . Patient reports this occurs every so often . Patient denies SI/HI/VH/AH. Plan to discharge on and has a intake with PHP on Friday; pt aware. Continue tx plan. Active on unit. social with peers. attending groups. Patient reports feeling good today; pt reports he is looking forward to discharge and attending PHP. denies SI/HI/VH/AH. He reports sleeping well last night. Patient reports he plans on following up with his outpatient providers. Status at Discharge Cognitive/behavioral status at discharge: Patient has insight and demonstrates good judgment in terms of wanting to pursue treatment. Patient has a safety plan that includes presenting to the closest ER or calling 911 if feeling unsafe. Functional status at discharge: independent ambulation Overall status at discharge: patient is back to baseline Time Spent with Patient Time attestation: Total time managing care of this patient today _20___ minutes. Time spent: Less than 30 minutes Discharge Plan Discharge Anticipated Discharge Date/Time: 06/30/25 10:30 Patient Disposition: Home, Self-Care Discharge Diagnosis: Bipolar d/o Referrals: Partial Hospitalization Program (PHP) [Other] - 07/01/25 9:00 am Referral Note: This is your intake appointment and it will be completed with Shelby. The PHP program is in the [facility] building on the hospital campus in a building behind the main hospital. Follow the silver signs to Center for and enter the brick building attached to the red trailer from Parking Lot . [facility] [Provider Group] - 1 Week Referral Note: 06-29-25 [facility] was added to patients chart. Please call [phone] or your own PCP to schedule a follow up appt within 7-10 days of discharge. Patient declined to have us make the call or fax for him. Discharge Medications: New naproxen 500 mg Tablet 500 mg PO BIDWM 7 Days Qty: 14 0RF betamethasone, augmented 0.05 % Cream 1 appl topical BID 7 Days Qty: 15 0RF Protocol: Apply to: Apply to: foreskin and scrotum lorazepam 0.5 mg Tablet 0.5 mg PO TID 30 Days Qty: 90 0RF Continued trazodone 100 mg Tablet 100 mg PO BEDTIME 30 Days Qty: 30 0RF lurasidone 40 mg Tablet 40 mg PO DAILY@1700 30 Days Qty: 30 0RF Discontinued lorazepam [Ativan] 2 mg Tablet 2 mg PO Q6H PRN (Reason: Anxiety) Discharge Orders: Discharge Order (Routine); Ordered 06/30/25 Ordered By: Crystal Shine Diet: Regular diet Activity on Discharge: As tolerated Stand Alone Forms: Patient Portal Discharge page, Community Support Print Language: Georgian Care Plan Goals: Maintain mood and safe behaviors Take medications as prescribed Practice coping skills Continue with outpatient providers and reach out to them as needed Health Concerns: Mood stability and behaviors Plan of Treatment: Follow up with your PCP, psychiatric provider and other outpatient providers regarding above concerns Take medications as prescribed Assessment: Patient has insight and demonstrates good judgment in terms of wanting to pursue treatment. Patient has a safety plan that includes presenting to the closest ER or calling 911 if feeling unsafe. Discharge Date/Time: 06/30/25 10:29
== END 2025-06-30 10:29 | disposition home or self-care (01) | DRG 753 ==
PROVIDERS: Nurse Practitioner Family; Social Worker; Admitting Provider Psychiatry & Neurology Psychiatry; Responsible Provider Registered Nurse; Visit Provider Psychiatry & Neurology Psychiatry
DX: F31.9 Bipolar disorder, unspecified (principal); F06.1 Catatonic disorder due to known physiological condition; L40.50 Arthropathic psoriasis, unspecified; B35.6 Tinea cruris; N47.1 Phimosis; G89.29 Other chronic pain; E66.9 Obesity, unspecified; Z68.36 Body mass index [BMI] 36.0-36.9, adult; Z79.899 Other long term (current) drug therapy
CPT/HCPCS: 36415; 73600; 73620; 80053; 80061; 81001; 83036; 84484; 85025; 85652; 86038; 86039; 86140; 90656; 93005; J1885

== ENCOUNTER 2025-06-22 15:47 | Outpatient (BNV) | payer OTHER, SELFPAY | END 2025-06-22 20:32 | PROVIDERS: Admitting Provider Psychiatry & Neurology Psychiatry; Visit Provider Radiology Diagnostic Radiology | DX: M25.572 Pain in left ankle and joints of left foot (principal); M79.672 Pain in left foot | CPT/HCPCS: 73600; 73620 ==

== ENCOUNTER → 2025-06-22 15:47 | Outpatient (BNV) | payer OTHER, SELFPAY | PROVIDERS: Admitting Provider Psychiatry & Neurology Psychiatry; Visit Provider Nurse Practitioner Family | DX: L40.50 Arthropathic psoriasis, unspecified (principal); M79.672 Pain in left foot; N47.1 Phimosis; R21 Rash and other nonspecific skin eruption | CPT/HCPCS: 99223 ==

== ENCOUNTER → 2025-06-22 15:47 | Outpatient (BNV) | payer OTHER, SELFPAY | PROVIDERS: Admitting Provider Psychiatry & Neurology Psychiatry; Visit Provider Social Worker | DX: F31.9 Bipolar disorder, unspecified (principal); F06.1 Catatonic disorder due to known physiological condition | CPT/HCPCS: 99232 ==

== ENCOUNTER 2025-07-08 14:11 | Outpatient (REF) | payer OTHER, SELFPAY ==
--- OUTSIDE RECORDS SUMMARY | 2025-07-05 10:30 | XMS_ITS | Encounter Summary ---
Author Organization [facility] Address [address] [place] [address] Care Team Providers Care Parking Officer Name Role Phone Carlene Olmstead MD Primary Care Provider Reason for Referral * Consultation (Routine) - Pending Review Specialty Diagnoses / Procedures Referred By Tonja keene Referred To Contact Dermatology Diagnoses Psoriasis Balbir Mayes NP [address] [place] [address] Phone: tel: fax: Referral ID Status Reason Start Date Expiration Date Visits Requested Visits Authorized [id number] Pending Review Specialty Services Required 07/05/2025 07/05/2026 1 1 * Consultation (Routine) - Pending Review Specialty Diagnoses / Procedures Referred By Tonja keene Referred To Contact Pain Medicine Diagnoses Other chronic pain Balbir Mayes NP [address] [place] [address] Phone: tel: fax: Referral ID Status Reason Start Date Expiration Date Visits Requested Visits Authorized [id number] Pending Review Specialty Services Required 07/05/2025 07/05/2026 1 1 * Consultation (Routine) - Closed Specialty Diagnoses / Procedures Referred By Tonja keene Referred To Contact Rheumatology Diagnoses Psoriatic arthritis (CMS/HCC V24, CMS/HCC V28) Polyarthralgia Balbir Mayes NP [address] [place] [address] Phone: tel: fax: [facility] - Rheumatology [address] [place] [address] Dr [address] [place] [address] Phone: tel: fax: Referral ID Status Reason Start Date Expiration Date V isits Requested Visits Authorized [id number] Closed Specialty Services Required 07/05/2025 07/05/2026 1 1 * Consultation (Routine) - Authorized Specialty Diagnoses / Procedures Referred By Contact Referred To Contact Psychiatry / Internal Medicine Diagnoses Mood disorder ([facility] V24) Balbir Mayes NP [address] [place] [address] Phone: tel: fax: Eliazar Groves NP [address] [place] [address] Phone: tel: fax: Referral ID Status Reason Start Date Expiration Date Visits Requested Visits Authorized [id number] Authorized Specialty Services Required 07/05/2025 07/05/2026 1 1 Reason for Visit * Reason Comments Transitional Care Management Encounter Details Date Type Department Care Team (Late st Contact Info) Description 07/05/2025 10:30 AM EST Office Visit Internal Medicine - [address] [phone] Balbir Mayes NP [address] [place] [address] Psoriatic arthritis (CMS/HCC V24, [facility] V28) (Primary Dx); Other chronic pain; Polyarthralgia; Mood disorder ([facility] V24); Anemia, unspecified type; Elevated blood sugar; Psoriasis; Intertrigo Social History Tobacco Use Types Packs/Day Years Used Date Smoking Tobacco: Never Smokeless Tobacco: Never Tobacco Cessation:Counseling Given: Not Answered Alcohol Use Standard Drinks/Week Comments No 0 (1 standard drink = 0.6 oz pur e alcohol) Sex and Gender Information Value Date Recorded Sex Assigned at Not on file Legal Sex Male 12:42 PM EST Gender Identity Not on file Sexual Orientation Not on file documented as of this encounter Last Filed Vital Signs Vital Sign Reading Time Taken Comments Blood Pressure 129/72 07/05/2025 10:43 AM EST Pulse 102 07/05/2025 10:43 AM EST Temperature - - Respiratory Rate - - Oxygen Saturation - - Inhaled Oxygen Concentration - - Weight 106 kg (233 lb 12.8 oz) 07/05/2025 10:43 AM EST Height 167.6 cm (5' 6 ) 07/05/2025 10:43 AM EST Body Mass Index 37.74 07/05/2025 10:43 AM EST documented in this encounter Ordered Prescriptions Prescription Sig Dispense Quantity Refills Last Filled Start Date End Date clotrimazole-betam ethasone (LOTRISONE) 1-0.05 % creamIndications:I ntertrigo Apply topically 2 (two) times a day. 15 g 07/05/2025 clobetasoL (TEMOVATE) 0.05 % topical solutionIndication s:Psoriasis Apply topically 2 (two) times a day. Use daily for 2 weeks until lesions are clear up 60 mL 07/05/2025 documented in this encounter Progress Notes * Balbir Mayes NP - 07/05/2025 10:30 AM EST CHIEF COMPLAINT: Transitional Care Management had concerns including Transitional Care Management. IDENTIFIER: Quan Davies is a 30 y.o. old male HPI: Quan Davies is a 30 y.o. old male presents to the office for evaluation of Transitional Care Management had concerns including Transitional Care Management. The patient recently relocated to [place] from [place] and lives with his father. He reports a recent episode of worsening bipolar symptoms with associated catatonia, which required an ER visit. This episode was attributed to discontinuation of psychiatric medications for approximately 3-4 days. He is currently asymptomatic and states he is participating in a partial hospitalization program at [facility] psychiatric department. He has not yet established care with a psychiatrist but anticipates doing so upon completion of the program. The patient has a history of psoriatic arthritis with multiple joint pains, including ankle pain. He currently manages symptoms with Tylenol and naproxen and requests a referral to rheumatology. He also reports a history of chronic pain syndrome and prior follow-up with a pain management clinic, where he previously received hydromorphone, methadone, ketamine infusion, and [employer] pump therapy. He expresses interest in re-establishing care with pain management but is not willing to restart narcotic medications. Pain is generalized without a specific focal area. He recalls prior workup for autoimmune disease but does not remember the diagnosis. Additionally, the patient reports scalp lesions consistent with psoriasis. He previously used clobetasol solution with good response and requests a refill. He also recalls a prior episode where Lyme disease was suspected; he received Rocephin via PICC line during that time. ROS: See HPI PAST MEDICAL HISTORY: Patient Active Problem List Diagnosis Date Noted Acute otitis media with effusion of right ear 05/20/2025 Marijuana use 03/10/2025 Hypercholesteremia 02/18/2024 Vitamin D deficiency 11/24/2023 Iron deficiency anemia 10/25/2023 Acute encephalopathy 10/24/2023 Chronic epididymitis 08/03/2023 Herpes labialis 05/07/2023 Psychotic disorder ([facility] V24, [facility] V28) 05/07/2023 Tinea cruris 05/07/2023 Fatty liver disease, nonalcoholic 03/04/2023 Multiple duodenal ulcers 02/11/2023 Polyarthralgia 09/23/2022 Long-term use of immunosuppressant medication 03/28/2022 Chronic, continuous use of opioids 03/20/2022 Chronic pain disorder 11/21/2021 Alopecia 09/20/2021 Essential hypertension 07/20/2021 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 Class 2 obesity 06/28/2021 Opioid use 06/28/2021 Psoriatic arthritis ([facility] V24, [facility] V28) 06/28/2021 Diabetes ([facility] V24, [facility] V28) 06/22/2021 Acute pain of right knee 05/28/2021 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 Type 2 diabetes mellitus with hyperglycemia, without long-term current use of insulin ([facility] V24,[facility] V28) 05/08/2021 Insomnia 11/03/2017 Severe episode of recurrent major depressive disorder, with psychotic features ([facility] V24, [facility] V28) 11/03/2017 Abdominal pain 05/27/2013 Hematochezia 05/27/2013 Acne scarring 11/11/2012 Acne vulgaris 11/11/2012 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 Smoking Status Never BSA 2.14 m?? APPEARANCE: Alert and in no acute distress HEART: RRR with normal S1 and S2, no murmurs, no gallops, no JVD appreciated LUNG: clear to auscultation EXTREMITIES: Extremities warm and well perfused without clubbing, cyanosis, or edema LABS: @LASTDATALABS@ IMPRESSION: No diagnosis found. Assessment & Plan 1. Bipolar Disorder with Recent Catatonia * Currently asymptomatic; recent exacerbation likely due to medication non-adherence. * Plan: * Referral to psychiatry for ongoing management and medication optimization. * Continue participation in partial hospitalization program at [facility]. 2. Psoriatic Arthritis with Polyarthralgia (including ankle pain) * History of psoriatic arthritis; currently on Tylenol and naproxen. * Plan: * Referral to rheumatology for comprehensive evaluation and management. * Arthritis panel ordered to assess inflammatory markers and autoimmune profile. 3. Chronic Pain Syndrome * Generalized pain; prior opioid and infusion therapy; patient declines narcotics. * Plan: * Referral to pain management for non-opioid strategies and multimodal approach. 4. Psoriatic Dermatitis of Scalp * Previously responsive to clobetasol solution. * Plan: * Clobetasol solution refill provided until dermatology evaluation. * Referral to dermatology for long-term management. 5. Genital Intertrigo * Plan: * Prescribed Lotrisone cream for 2 weeks. 6. Anemia (recent labs) * Denies overt GI bleeding (no melena or hematochezia). * Plan: * Order CBC, iron/TIBC, vitamin B12, and folate for further evaluation. 7. History of Possible Lyme Disease * Prior treatment with Rocephin via PICC line; unclear diagnosis. * Plan: * Consider serologic testing if clinically indicated after rheumatology review. Labs Ordered: * CBC * Iron/TIBC * Vitamin B12 * Folate * Arthritis panel Follow-up in 2 months No orders of the defined types were placed in this encounter. ADDITIONAL ORDERS: None Today's documentation was made using voice recognition software.This note may contain grammatical errors secondary to this software. Balbir Mayes NP on 07/05/2025 at 11:02 AM EST I spent 45 minutes of this appointment on reviewing the test results, obtaining history, performinga medically appropriate examination and evaluation, counseling and educating the patient, reviewingmedications related to current problem, ordering new medications, tests, referring to health care pr ofessionals, documenting clinical information in the electronic health record, and communicating results to the patient. [1] Outpatient Medications Marked as Taking for the 07/05/25 encounter (Office Visit) with Balbir Mayes NP Medication Sig Dispense Refill acetaminophen (TYLENOL) 500 mg tablet Take 2 tablets (1,000 mg total) by mouth 3 times daily. betamethasone, augmented, (DIPROLENE-AF) 0.05 % cream ibuprofen (ADVIL,MOTRIN) 200 mg tablet Take 2 tablets (400 mg total) by mouth every 6 hours as needed. ixekizumab (Taltz Autoinjector) 80 mg/mL injection Inject 1 mL (80 mg total) under the skin. LORazepam (ATIVAN) 2 mg tablet Take 1 tablet (2 mg total) by mouth every 6 (six) hours if needed for anxiety. Max Daily Amount: 8 mg lurasidone (LATUDA) 40 mg tablet Take 1 tablet (40 mg total) by mouth 1 (one) time each day with breakfast. (Patient taking differently: Take 1 tablet (40 mg total) by mouth 1 (one) time each day with dinner.) melatonin 3 mg tablet Take 2 tablets (6 mg total) by mouth. naproxen (NAPROSYN) 500 mg tablet Take 1 tablet (500 mg total) by mouth. traZODone (DESYREL) 100 mg tablet Take 1 tablet (100 mg total) by mouth at bedtime. documented in this encounter Plan of Treatment Upcoming Encounters Date Type Department Care Team (Late st Contact Info) Description 08/18/2025 3:30 PM EST Office Visit Internal Medicine - [address] [phone] Carlene Olmstead MD [address] [place] [address] 01/10/2026 10:00 AM EDT Office Visit Internal Medicine - [address] [phone] Carlene Olmstead MD [address] [place] [address] Scheduled Referrals Name Type Priority Associated Diagnoses Order Schedule Ambulatory referral to Psychiatry Outpatient Referral Routine Mood disorder ([facility] V24) 1 Occurrences starting 07/05/2025 until 07/05/2026 Ambulatory referral to Rheumatology Outpatient Referral Routine Psoriatic arthritis ([facility] V24, [facility] V28) Polyarthralgia 1 Occurrences starting 07/05/2025 until 07/05/2026 Ambulatory referral to Pain Medicine Outpatient Referral Routine Other chronic pain 1 Occurrences starting 07/05/2025 until 07/05/2026 Ambulatory referral to Dermatology Outpatient Referral Routine Psoriasis 1 Occurrences starting 07/05/2025 until 07/05/2026 documented as of this encounter Results * Hemoglobin A1c (07/05/2025 11:45 AM EST) Hemoglobin A1C 5.4 <6.5 % LAB CHEMISTRY METHOD 07/07/2025 2:39 PM EST [facility] Mean Bld Glu Estim. 108 mg/dL LAB CHEMISTRY METHOD 07/07/2025 2:39 PM EST [facility] Blood Venous blood specimen / Unknown Venipuncture / Unknown 07/05/2025 11:45 AM EST 07/05/2025 11:45 AM EST Balbir Mayes LAB BLOOD ORDERABLES Final Res ult Performing Organization Address [facility] [[email or web address]] Co de Phone Number [facility] [address] [place] [address], [place] [phone] * Vitamin B12 and folate (07/05/2025 11:45 AM EST) [facility] Vitamin B-12 345 211 - 911 pcg/mL 07/05/2025 4:38 PM EST [facility] Folate 18.5 >=5.4 ng/ml 07/05/2025 4:38 PM EST [facility] Comment:Over the counter sup plements containing high doses of biotin may interfere with this assay. If interference is suspected, patients shoud be retested after refraining from biotin supplements for 72 hours. Blood Venous blood specimen / Unknown Venipuncture / Unknown 07/05/2025 11:45 AM EST 07/05/2025 11:45 AM EST us Balbir Mayes NP LAB BLOOD ORDERABLES Final Res ult Performing Organization Address City/[facility]/ZIP Co de Phone Number [facility] [address] [place] [address], [place] [phone] * (ABNORMAL) Iron and TIBC (07/05/2025 11:45 AM EST) [facility] Iron 51 50 - 160 mcg/dL 07/05/2025 4:38 PM EST [facility] TIBC 363 250 - 450 mcg/dL 07/05/2025 4:38 PM EST [facility] Iron Saturation 14(L) 20 - 50 % 4:38 PM EST [facility] Blood Venous blood specimen / Unknown Venipuncture / Unknown 07/05/2025 11:45 AM EST 07/05/2025 11:45 AM EST us Balbir Mayes NP LAB BLOOD ORDERABLES Final Res ult Performing Organization Address [facility] [[email or web address]] Co de Phone Number [facility] [address] [place] [address], [place] [phone] * (ABNORMAL) Sedimentation rate (07/05/2025 11:45 AM EST) Pathologist [facility] Sed Rate 56(H) 0 - 15 mm/hr LAB HEMETOLOGY METHOD 07/05/2025 1:55 PM EST [facility] Blood Venous blood specimen / Unknown Venipuncture / Unknown 07/05/2025 11:45 AM EST 07/05/2025 11:45 AM EST us Balbir Mayes NP LAB BLOOD ORDERABLES Final Res ult Performing Organization Address [facility] de Phone Number [facility] [address] [place] [address], [place] [phone] * VIPIN IFA with titer and pattern (07/05/2025 11:45 AM EST) Pathologist [facility] VIPIN Negative Negative 07/06/2025 1:59 PM EST [facility] Comment:VIPIN performed by ind irect immunofluorescence (IFA) using HEp-2 substrate. Blood Venous blood specimen / Unknown Venipuncture / Unknown 07/05/2025 11:45 AM EST 07/05/2025 11:45 AM EST us Balbir Mayes NP LAB BLOOD ORDERABLES Final Res ult Performing Organization Address City/[facility]/ZIP Co de Phone Number [facility] [address] [place] [address], [place] [phone] * Borrelia burgdorferi antibody (07/05/2025 11:45 AM EST) [facility] Lyme Ab Negative Negative LAB CHEMISTRY METHOD 07/05/2025 3:27 PM EST [facility] Comment: No laboratory evidence of infection with B. burgdorferi (Lyme disease). Negative results may occur in patients recently infected (<=14 days) with B. burgdorferi. If recent infection is suspected, repeat testing on a new sample collected in 7- 14 days is recommended. Blood Venous blood specimen / Unknown Venipuncture / Unknown 07/05/2025 11:45 AM EST 07/05/2025 11:45 AM EST us Balbir Mayes NP LAB BLOOD ORDERABLES Final Res ult Performing Organization Address [facility] [[email or web address]] Co de Phone Number [facility] [address] [place] [address], [place] [phone] * Uric acid (07/05/2025 11:45 AM EST) [facility] Uric Acid 3.8 3.7 - 9.2 mg/dL 07/05/2025 4:35 PM EST [facility] Blood Venous blood specimen / Unknown Venipuncture / Unknown 07/05/2025 11:45 AM EST 07/05/2025 11:45 AM EST Balbir Mayes NP LAB BLOOD ORDERABLES Final Res ult Performing Organization Address City/[facility]/ZIP Co de Phone Number [facility] [address] [place] [address], [place] [phone] * Rheumatoid factor (07/05/2025 11:45 AM EST) [facility] Rheumatoid Factor <3.5 <15.0 I Unit/mL 07/05/2025 4:43 PM EST [facility] Blood Venous blood specimen / Unknown Venipuncture / Unknown 07/05/2025 11:45 AM EST 07/05/2025 11:45 AM EST us Balbir Mayes NP LAB BLOOD ORDERABLES Final Res ult [facility] [address] [place] [address], documented in this encounter Visit Diagnoses Diagnosis Psoriatic arthritis (CMS/HCC V24, CMS/HCC V28)- Primary Psoriatic arthropathy Other chronic pain Polyarthralgia Pain in joint, multiple sites Mood disorder (CMS/HCC V24) Unspecified episodic mood disorder Anemia, unspecified type Elevated blood sugar Other abnormal glucose Psoriasis Other psoriasis Intertrigo Other specified erythematous condition documented in this encounter Discontinued Medications Medication Sig Discontinue Reason Start Date End Da te ibuprofen (ADVIL,MOTRIN) 200 mg tablet Take 2 tablets (400 mg total) by mouth every 6 hours as needed. 06/01/2025 07/05/2025 betamethasone, augmented, (DIPROLENE-AF) 0.05 % cream 06/30/2025 07/05/2025 documented as of this encounter Historical Medications * This list may reflect changes made after this encounter. naproxen (NAPROSYN) 500 mg tablet Take 1 tablet (500 mg total) by mouth. 06/30/2025 melatonin 3 mg tablet Take 2 tablets (6 mg total) by mouth. 06/14/2025 07/14/2025 ixekizumab (Taltz Autoinjector) 80 mg/mL injection Inject 1 mL (80 mg total) under the skin. 09/30/2023 acetaminophen (TYLENOL) 500 mg tablet Take 2 tablets (1,000 mg total) by mouth 3 times daily. 06/01/2025 ibuprofen (ADVIL,MOTRIN) 200 mg tablet Take 2 tablets (400 mg total) by mouth every 6 hours as needed. 06/01/2025 07/05/2025 betamethasone, augmented, (DIPROLENE-AF) 0.05 % cream 06/30/2025 07/05/2025 added in this encounter Additional Health Concerns Assessment Noted Time PHQ-9 Depression Total Score: 1 07/05/20 10:43 AM EST documented as of this encounter Care Teams Parking Officer Relationship Specialty Start Date End Date Carlene Olmstead MD [address] [facility] [place] [address] PCP - General Internal Medicine 06/21/25 documented as of this encounter
--- OUTSIDE RECORDS SUMMARY | 2025-07-05 11:40 | XMS_ITS | Encounter Summary ---
Author Organization [facility] Address [address] [place] [address] Care Team Providers Care Culture Manager Name Role Phone Carlene Olmstead MD Primary Care Provider [phone] Encounter Details Date Type Department Care Team (Late Contact Info) Description 07/05/2025 11:40 AM EST Lab Draw Station [address] Elevated blood sugar; Anemia, unspecified type; Polyarthralgia Social History Tobacco Use Types Packs/Day Years [...] on file documented as of this encounter Plan of Treatment Upcoming Encounters Date Type Department Care Team ([facility] Contact Info) Description 08/18/2025 3:30 PM EST Office Visit Internal Medicine - [address] [phone] Carlene Olmstead MD [address] [place] [address] 01/10/2026 10:00 AM EDT Office Visit Internal Medicine - [address] [phone] Carlene Olmstead MD [address] [place] [address] documented as of this encounter Procedures Procedure Name Priority Date/Time Associated Diagnosis Comments VITAMIN B12 AND FOLATE Routine 11:45 AM EST Anemia, unspecified type VIPIN IFA WITH TITER AND PATTERN Routine 07/05/2025 11:45 AM EST Polyarthralgia CBC WITH AUTO DIFFERENTIAL Routine 07/05/2025 11:45 AM EST Anemia, unspecified type IRON AND TIBC Routine 07/05/2025 11:45 AM EST Anemia, unspecified type BORRELIA BURGDORFERI ANTIBODY Routine 07/05/2025 11:45 AM EST Polyarthralgia SEDIMENTATION RATE Routine 07/05/2025 11 :45 AM EST Polyarthralgia CBC AND DIFFERENTIAL Routine 07/05/2025 11:45 AM EST Anemia, unspecified type RHEUMATOID FACTOR Routine 07/05/2025 11: 45 AM EST Polyarthralgia URIC ACID Routine 07/05/2025 11:45 AM EST Polyarthralgia HEMOGLOBIN A1C Routine 07/05/2025 11:45 AM EST Elevated blood sugar documented in this encounter Results * (ABNORMAL) CBC auto differential (07/05/2025 11:45 AM EST) WBC 11.6(H) 4.8 - 10.8 K/mcL LAB HEMETOLOGY METHOD 07/05/2025 1:56 PM EST [facility] RBC 5.00 4.50 - 5.50 M/mcL LAB HEMETOLOGY METHOD 07/05/2025 1:56 PM EST [facility] Hemoglobin 13.8 13.5 - 17.5 g/dL LAB HEMETOLOGY METHOD 07/05/2025 1:56 PM [facility] Hematocrit 43.7 42.0 - 54.0 % LAB HEMETOLOGY METHOD 07/05/2025 1:56 PM [facility] MCV 86.7 79.0 - 98.0 FL LAB HEMETOLOGY METHOD 07/05/2025 1:56 PM [facility] MCH 27.4 27.0 - 32.0 pcg LAB HEMETOLOGY METHOD 07/05/2025 1:56 PM [facility] MCHC 31.6(L) 32.0 - 37.0 g/dL LAB HEMETOLOGY METHOD 07/05/2025 1:56 PM [facility] RDW 14.4 11.0 - 15.0 % LAB HEMETOLOGY METHOD 07/05/2025 1:56 PM [facility] Platelets 294 130 - 400 K/mcL LAB HEMETOLOGY METHOD 07/05/2025 1:56 PM [facility] MPV 11.2(H) 7.0 - 11.0 FL LAB HEMETOLOGY METHOD 07/05/2025 1:56 PM [facility] NRBC 0.0 <1.0 % LAB HEMETOLOGY METHOD 07/05/2025 1:56 PM [facility] NRBC Absolute 0.00 <0.10 K/mcL LAB HEMETOLOGY METHOD 07/05/2025 1:56 PM [facility] Neutrophils Relative 55.8 % LAB HEMETOLOGY METHOD 07/05/2025 1:56 PM [facility] Lymphocytes Relative 30.9 % LAB HEMETOLOGY METHOD 07/05/2025 1:56 PM [facility] Monocytes Relative 9.9 % LAB HEMETOLOGY METHOD 07/05/2025 1:56 PM [facility] Eosinophils Relative 2.7 % LAB HEMETOLOGY METHOD 07/05/2025 1:56 PM EST [facility] Basophils Relative 0.3 % LAB HEMETOLOGY METHOD 07/05/2025 1:56 PM [facility] Immature Granulocytes Relative 0.4 % LAB HEMETOLOGY METHOD 07/05/2025 1:56 PM [facility] Neutrophils Absolute 6.44 1.50 - 7.00 K/mcL LAB HEMETOLOGY METHOD 07/05/2025 1:56 PM EST [facility] Lymphocytes Absolute 3.57 1.00 - 5.00 K/mcL LAB HEMETOLOGY METHOD 07/05/2025 1:56 PM [facility] Monocytes Absolute 1.15(H) 0.20 - 1.00 K/mcL LAB HEMETOLOGY METHOD 07/05/2025 1:56 PM [facility] Eosinophils Absolute 0.31 0.00 - 0.50 K/mcL LAB HEMETOLOGY METHOD 07/05/2025 1:56 PM [facility] Basophils Absolute 0.04 0.00 - 0.20 K/mcL LAB HEMETOLOGY METHOD 07/05/2025 1:56 PM [facility] Immature Granulocytes Absolute 0.05(H) 0.00 - 0.03 K/mcL LAB HEMETOLOGY METHOD 07/05/2025 1:56 PM [facility] Blood Venous blood specimen / Unknown Venipuncture / Unknown 07/05/2025 11:45 AM EST 07/05/2025 11:45 AM EST us Balbir Mayes NP LAB BLOOD ORDERABLES Final Res ult [facility] [address] [place] [address], * Rheumatoid factor (07/05/2025 11:45 AM EST) Rheumatoid Factor <3.5 <15.0 I Unit/mL 07/05/2025 4:43 PM EST [facility] Blood Venous blood specimen / Unknown Venipuncture / Unknown 07/05/2025 11:45 AM EST 07/05/2025 11:45 AM EST Balbir Mayes NP LAB BLOOD ORDERABLES Final Res ult Performing Organization Address City/[facility]/ZIP Co de Phone Number [facility] [address] [place] [address], [place] [phone] * Uric acid (07/05/2025 11:45 AM EST) [facility] Uric Acid 3.8 3.7 - 9.2 mg/dL 07/05/2025 4:35 PM EST [facility] Blood Venous blood specimen / Unknown Venipuncture / Unknown 07/05/2025 11:45 AM EST 07/05/2025 11:45 AM EST us Balbir Mayes NP LAB BLOOD ORDERABLES Final Res ult Performing Organization Address City/[facility] Co de Phone Number [facility] [address] [place] [address], [place] [phone] * Borrelia burgdorferi antibody (07/05/2025 11:45 AM EST) [facility] Lyme Ab Negative Negative LAB CHEMISTRY METHOD 07/05/2025 3:27 PM EST [facility] Comment: No laboratory [...] ORDERABLES Final Res ult Performing Organization Address [place]/[facility]/ZIP Co de Phone Number [facility] [address] [place] [address], [place] [phone] * VIPIN IFA with titer and pattern (07/05/2025 11:45 AM EST) [facility] VIPIN Negative Negative 07/06/2025 1:59 PM EST [facility] Comment:VIPIN performed by ind irect immunofluorescence (IFA) using HEp-2 substrate. Blood Venous blood specimen / Unknown Venipuncture / Unknown 07/05/2025 11:45 AM EST 07/05/2025 11:45 AM EST us Balbir Mayes NP LAB BLOOD ORDERABLES Final Res ult Performing Organization Address [place]/[facility] de Phone Number [facility] [address] [place] [address], [place] [phone] * (ABNORMAL) Sedimentation rate (07/05/2025 11:45 AM EST) [facility] Sed Rate 56(H) 0 - 15 mm/hr LAB HEMETOLOGY METHOD 07/05/2025 1:55 PM EST [facility] Blood Venous blood specimen / Unknown Venipuncture / Unknown 07/05/2025 11:45 AM EST 07/05/2025 11:45 AM EST Balbir Mayes NP LAB BLOOD ORDERABLES Final Res ult Performing Organization Address City/[facility]/ZIP Co de Phone Number [facility] [address] [place] [address], [place] [phone] * (ABNORMAL) Iron and TIBC (07/05/2025 11:45 AM EST) [facility] Iron 51 50 - 160 mcg/dL 07/05/2025 4:38 PM EST [facility] TIBC 363 250 - 450 mcg/dL 07/05/2025 4:38 PM EST [facility] Iron Saturation 14(L) 20 - 50 % 4:38 PM EST [facility] Blood Venous blood specimen / Unknown Venipuncture / Unknown 07/05/2025 11:45 AM EST 07/05/2025 11:45 AM EST Balbir Mayes NP LAB BLOOD ORDERABLES Final Res ult [facility] [address] [place] [address], [place] [phone] * Vitamin B12 and folate (07/05/2025 11:45 AM EST) Vitamin B-12 345 211 - 911 pcg/mL 07/05/2025 4:38 PM EST [facility] Folate 18.5 >=5.4 ng/ml 07/05/2025 4:38 PM EST [facility] Comment:Over the counter sup plements containing high doses of biotin may interfere with this assay. If interference is suspected, patients shoud be retested after refraining from biotin supplements for 72 hours. Blood Venous blood specimen / Unknown Venipuncture / Unknown 07/05/2025 11:45 AM EST 07/05/2025 11:45 AM EST Balbir Mayes NP LAB BLOOD ORDERABLES Final Res ult [facility] [address] [place] [address], [place] [phone] * Hemoglobin A1c (07/05/2025 11:45 AM EST) Hemoglobin A1C 5.4 <6.5 % LAB CHEMISTRY METHOD 07/07/2025 2:39 PM EST [facility] Mean Bld Glu Estim. 108 mg/dL LAB CHEMISTRY METHOD 07/07/2025 2:39 PM EST [facility] Blood Venous blood specimen / Unknown Venipuncture / Unknown 07/05/2025 11:45 AM EST 07/05/2025 11:45 AM EST us Balbir Mayes [employer] LAB BLOOD ORDERABLES Final Res ult [facility] [address] [place] [address], documented in this encounter Visit Diagnoses Diagnosis Elevated blood sugar Other abnormal glucose Anemia, unspecified type Polyarthralgia Pain in joint, multiple sites documented in this encounter Additional Health Concerns Assessment Noted Time PHQ-9 Depression Total Score: 1 07/05/20 10:43 AM EST documented as of this encounter Care Teams Culture Manager Relationship Specialty Start Date End Date Carlene Olmstead MD [address] [place] [address] PCP - General Internal Medicine 06/21/25 documented as of this encounter
--- NOTE | 2025-07-08 14:23 | ECG_ITS ---
Test Reason : CHECK QTC Blood Pressure : */* mmHG Vent. Rate : 93 BPM Atrial Rate : 93 BPM P-R Int : 146 ms QRS Dur : 104 ms QT Int : 340 ms P-R-T Axes : 54 105 32 degrees QTcB Int : 422 ms Normal sinus rhythm Rightward axis Borderline ECG When compared with ECG of 23-Jun-2025 14:29, Incomplete right bundle branch block is no longer Present Referred By: Shanna Doshi Electronically Signed By: SCARLET ARIAS MD
[2025-07-08 14:50] LABS: MANUAL DIFF FLAG NO
[2025-07-08 15:08] LABS: Hematocrit 40.7 % (42.0-52.0); Hemoglobin 12.9 g/dl (14.0-18.0); Imm Gran Abs Auto 0.07 X10*3/uL (0.00-0.03); Imm Gran Pct Auto 0.6 % (0.0-0.4); Lymphocytes Absolute Auto 2.8 X10*3/uL (1.2-4.9); Mean Corpuscular HGB Conc 31.7 g/dl (31.0-36.0); Mean Corpuscular Hemoglobin 27.3 pg (27.0-33.0); Mean Corpuscular Volume 86.0 fL (80.0-98.0); NRBC Abs Auto 0.000 X10*3/uL (0.0-0.012); NRBC Pct Auto 0.0 /100WBC (0.0-0.2); Platelet Count 280 X10*3/uL (160-400); Red Blood Count 4.73 X10*6/uL (4.60-5.80); White Blood Count 11.7 X10*3/uL (4.8-10.8)
[2025-07-08 15:43] LABS: Appearance Urine Clear; Glucose Urine UA Negative (Negative); PH 6.0 (5.0-9.0); Specific Gravity - Urine >= 1.030 (1.005-1.025)
[2025-07-08 16:00] LABS: Parathyroid Hormone Intact 41.1 pg/mL (8.7-77.1)
[2025-07-08 16:01] LABS: Alanine Aminotransferase 16 U/L (0-40); Albumin Level 4.0 g/dL (3.5-5.0); Alkaline Phosphatase 46 U/L (39-117); Anion Gap 11 (12-20); Aspartate Amino Transferase 26 U/L (5-37); Blood Urea Nitrogen 15 mg/dL (9-16); Calcium 9.0 mg/dL (8.4-10.2); Carbon Dioxide 28 mmol/L (22-29); Chloride 104 mmol/L (96-108); Cholesterol 144 mg/dL (<200); Estimated Glomerular Filt Rate > 60; HDL Cholesterol 31 mg/dL (>40); Iron 43 mcg/dL (45-160); Magnesium 2.0 mg/dL (1.6-2.6); Percent Iron Saturation 15 % (15-50); Potassium 4.0 mmol/L (3.3-5.1); Sodium 139 mmol/L (135-145); Total Iron Binding Capacity 289 mcg/dL (228-428); Total Protein 7.1 g/dL (6.5-8.0); Triglycerides 128 mg/dL (<150); Unsaturated Iron Binding 246 ug/dL
[2025-07-08 16:16] LABS: Thyroid Stimulating Hormone 0.42 uIU/mL (0.32-4.0)
[2025-07-08 16:27] LABS: Folate 7.9 ng/mL (> or = 4.0); Vitamin B12 246 pg/mL (200-900)
--- OUTSIDE RECORDS SUMMARY | 2025-07-08 19:30 | XMS_ITS | Encounter Summary ---
Author Organization [facility] Address [address] [place] [id number] Phone Care Team Providers Care Sports Media Name Role Phone Pcp, Unknown Primary Care Provider Unavailabl e Encounter Details Date Type Department Care Team ([facility] st Contact Info) Description 02/08/2023 Procedure Pass [facility], [address] [place] [address] Social History Tobacco Use Types Packs/Day Years Used Date Smoking Tobacco: Never Alcohol Use Standard Drinks/Week Comments Not Currently 0 (1 standard drink = 0.6 oz pur e alcohol) Education Answer Date Recorded Are you interested in more education? Not on lacie e 02/07/2023 Are you concerned about learning? Not on file 02/07/2023 No 02/07/2023 No 02/07/2023 Digital Access Answer Date Recorded No 02/07/2023 No 02/07/2023 Reliable internet access at home? Not on file 02/07/2023 Device with a working camera? Not on file Intimate Partner Violence Answer Date R ecorded Are you denied basic needs s uch as food, clothing, or medical care? No 02/09/2023 In the past 12 months have y ou been in a relationship with a person who hurts, threatens, or tries to control you? No 02/09/2023 Are you denied basic needs s uch as food, clothing, or medical care? No 02/09/2023 In the past 12 months have y ou been in a relationship with a person who hurts, threatens, or tries to control you? No 02/09/2023 Sex and Gender Information Value Date Recorded Sex Assigned at Not on file Legal Sex Male 4:04 PM EDT Gender Identity Not on file Sexual Orientation Not on file documented as of this encounter Functional Status * Calculated C-SSRS Risk Score (Lifetime/Recent) Answer Date of Assessment Author No Risk Indicated 02/09/2023 9:00 AM EDT Leyla Gallagher RN * [place] Suicide Severity Rating Scale (Screener/Recent Self-Report) Question Answer Date of Assessment Author 1. Wish to be (Past 1 Month) No 02/09/2023 9:00 AM EDT Leyla Snow RN 2. Non-Specific Active Suicidal Thoughts (Past 1 Month) No 02/09/2023 9:00 AM EDT Leyla Snow RN 6. Suicidal Behavior (Lifetime) No 02/09/2023 9:00 AM EDT Leyla Snow RN documented as of this encounter Plan of Treatment Not on file documented as of this encounter Visit Diagnoses Not on filedocumented in this encounter Care Teams Sports Media Relationship Specialty Start Date End Date Pcp, Unknown PCP - General 02/07/23 documented as of this encounter Additional Source Comments The information contained in this document represents components of the legal health record. It is not the complete legal health record.[facility]
--- OUTSIDE RECORDS SUMMARY | 2025-07-08 19:30 | XMS_ITS | Encounter Summary ---
Author Organization [facility] Address [address] [place] [address] Phone Care Team Providers Care Manager Country Name Role Phone Pcp, Unknown Primary Care Provider Unavailabl e Encounter Details Date Type Department Care Team ([facility] st Contact Info) Description 02/08/2023 Procedure Pass [facility] Emergency Imaging, [address] [place] [address] Social History Tobacco Use Types Packs/Day Years [...] 9:00 AM EDT Leyla Gallagher RN * [place] Suicide Severity Rating Scale (Screener/Recent Self-Report) Question [...] on filedocumented in this encounter Care Teams Manager Country Relationship Specialty Start Date End Date Pcp, Unknown PCP - General 02/07/23 documented as of this encounter Additional Source Comments The information contained in this document represents components of the legal health record. It is not the complete legal health record.[facility]
--- OUTSIDE RECORDS SUMMARY | 2025-07-08 19:30 | XMS_ITS | Encounter Summary ---
Author Organization [facility] Address [address] [place] [address] Care Team Providers Care Mushroom Packer Name Role Phone Carlene Olmstead MD Primary Care Provider [phone] Encounter Details Date Type Department Care Team (Late Contact Info) Description 07/05/2025 Telephone [facility] ABSTRACTION Regi Tucker [place] Social History Tobacco Use Types Packs/Day Years [...] Encounters Date Type Department Care Team (Late Contact Info) Description 08/18/2025 3:30 PM EST [facility] [address] [place] [address] Carlene Olmstead MD [address] [place] [address] 01/10/2026 10:00 AM EDT [facility] [address] [place] [address] Carlene Olmstead MD [address] [place] [address] documented as of this encounter Visit Diagnoses Not on filedocumented in this encounter Additional Health Concerns Assessment Noted Time PHQ-9 Depression Total Score: 1 07/05/20 25 10:43 AM EST documented as of this encounter Care Teams Mushroom Packer Relationship Specialty Start Date End Date Carlene Olmstead MD [address] [place] [address] PCP - General Internal Medicine 06/21/25 documented as of this encounter
--- OUTSIDE RECORDS SUMMARY | 2025-07-08 19:30 | XMS_ITS | Clinical Summary ---
Author Organization [facility] [address] [facility] Building Address [address] [place] [address] Phone Care Team Providers Care Fuel Agent Name Role Phone Carlene Olmstead MD Primary Care Provider [phone] Allergies No known active allergies Medications lurasidone [...] mg total) by mouth at bedtime. Active acetaminophen (TYLENOL) 500 mg tablet Take 2 tablets (1,000 mg total) by mouth 3 times daily. 06/01/20 25 Active ixekizumab (Taltz Autoinjector) 80 mg/mL injection Inject 1 mL (80 mg total) under the skin. 09/30/19 24 Active melatonin 3 mg tablet Take 2 tablets (6 mg total) by mouth. 06/14/20 25 025 Active naproxen (NAPROSYN) 500 mg tablet Take 1 tablet (500 mg total) by mouth. 06/30/20 25 Active clobetasoL (TEMOVATE) 0.05 % topical solutionIndica tions:Psoriasi s Apply topically 2 (two) times a day. Use daily for 2 weeks until lesions are clear up 60 mL 07/05/20 25 Active clotrimazole-b etamethasone (LOTRISONE) 1-0.05 % creamIndicatio ns:Intertrigo Apply topically 2 (two) times a day. 15 g 07/05/20 Active betamethasone, augmented, (DIPROLENE-AF) 0.05 % cream 06/30/20 25 025 Discontinued ibuprofen (ADVIL,MOTRIN) 200 mg tablet Take 2 tablets (400 mg total) by mouth every 6 hours as needed. 06/01/20 25 025 Discontinued Active Problems Problem Noted Date Diagnosed Date Acute otitis media with effusion of right ear Marijuana use 03/10/2025 Hypercholesteremia 02/18/2024 Vitamin D deficiency 11/24/2023 Iron deficiency anemia 10/25/2023 Acute encephalopathy 10/24/2023 Chronic epididymitis 08/03/2023 Herpes labialis 05/07/2023 Overview (07/05/2025): Lower lip Psychotic disorder 05/07/2023 Tinea cruris 05/07/2023 Fatty liver disease, nonalcoholic 03/04/2023 Multiple duodenal ulcers 02/11/2023 Overview (07/05/2025): Last Assessment & Plan: #erosive gastropathy #abdominal pain #nausea and vomiting Presented with PO intolerance, vomiting, and metabolic disarray as result. As part of work up for abdominal pain, nausea, and vomiting underwent EGD and colonoscopy on 02/11. EGD notable for erosive gastropathy and non bleeding duodenal ulcers (biopsies sent) with colonoscopy notable for ileum erosions, erythematous mucosa in rectum and sigmoid colon, and x2 polyps (biopsies sent). In discussion with patient, no NSAID use (was not taking any medications prior to admission, last trial of medications/supplements was medical marijuana 4 weeks prior to admission) and no known history of h pylori. Pathology without evidence of h pylori, active/chronic/microscopy colitis, or systemic mastocytosis. In light of this, GI with suspicion that ulcers in setting of medication use over time. Even though he has not recently used medications, likely that these ulcers formed and even though off all medications, without PPI couldn't heal. Recommended 2-3 months of omeprazole, and then can consider repeat endoscopy in 3-6 months to determine if inflammation still present. - appreciate GI recommendations -- continue omeprazole BID x2-3 months (started 02/11) - PRN maalox Polyarthralgia 09/23/2022 Long-term use of immunosuppressant medication Overview (07/05/2025): 25 October 2023: Initiated on ixekizmab (Taltz) 13 August 2023, q.4 weeks dosing, last dose received 13 September, currently pending receipt of medication from online pharmacy. 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 Type 2 diabetes mellitus wit h hyperglycemia, without long-term current use of insulin 05/08/2021 Insomnia 11/03/2017 Severe episode of recurrent major depressive disorder, with psychotic features 11/03/2017 Abdominal pain 05/27/2013 Hematochezia 05/27/2013 Acne scarring 11/11/2012 Acne vulgaris 11/11/2012 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 Encounters Date Type Department Care Team Description 07/06/2025 Results Follow-Up Internal Medicine - [address] [phone] Balbir Mayes NP 07/05/2025 11:40 AM EST Lab Draw Station - [address] Elevated blood sugar; Anemia, unspecified type; Polyarthralgia 07/05/2025 10:30 AM EST Office Visit Internal Medicine - [address] [phone] Balbir Mayes NP Psoriatic arthritis (CMS/HCC V24, CMS/HCC V28) (Primary Dx); Other chronic pain; Polyarthralgia; Mood disorder ([facility]/HCC V24); Anemia, unspecified type; Elevated blood sugar; Psoriasis; Intertrigo 07/05/2025 Telephone [facility] Regi Tucker [place] 06/30/2025 [facility] [address] [place] [phone] Carlene Olmstead MD 06/21/2025 4:09 PM EST - 06/22/2025 3:[address] [facility] Emergency [address] [place] [address] Anthony Olson MD Landry, Jonathan P, MD Killelea, Alison G, MD Altered mental status, unspecified altered mental status type (Primary Dx) Discharge Disposition: [facility] from Last 3 Months Immunizations Immunization Administration Dates Next Due DTaP (Infanrix) 6wks to less than 7yo ,02/13/1999,12/13/1997,02/25,1995 [id number] (Pentacel) 2mo to less than 5yo 12/13/1997,02/26/1996,1995 H1N1 Inj Preservative Free 06/26/2009 Hepatitis B Pediatric (Enger ix B; Recombivax HB) to less than 20 yo 12/13/1997,1995,1995 IPV Inactivated polio (Ipol) 6wks and older 05/15/2000,12/13/1997,02/26/1996,08/28 Influenza Quadrivalent, 0.5m l, preservative free (Fluarix; FluLaval; Fluzone) ages 6mo and older (Afluria) 3yo and older 05/18/2021 Influenza trivalent, 0.5mL, preservative free (Fluarix; FluLaval; Fluzone) ages 6mo and older (Afluria) 3 years and older 06/24/2025,07/02/2010 MMR, measles mumps and rubel la Live (Priorix; M-M-R II) 12mo and older 05/15/2000,12/13/1997 Meningococcal MCV4P 06/26/2009 Tdap Tetanus diptheria acell ular pertussis (Boostrix; Adacel) 7yo and older 11/09/2012,03/21/2008 Varicella live (Varivax) 12m o and older 06/26/2009,02/13/1999 Surgical History Surgery Date Site/Laterality Comments OTHER SURGICAL HISTORY PROCEDURE: DENIES PREVIOUS SURGERY Medical History Medical History Date Comments 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 DX:Congenital n evus Acne vulgaris 11/11/2012 DX:Acne vulgaris Morbid obesity (CMS/HCC V24, CMS/HCC V28) DX:Morbid obesity ([facility]) Hematochezia DX:Hematochezia; COMMENT: colonscopy done in 2012 at [facility] and normal Essential hypertension 07/20/2021 Family History Medical History Relation Name Comments [...] on file Sexual Orientation Not on file Last Filed Vital Signs Vital Sign Reading Time Taken Comments Blood Pressure 129/72 07/05/2025 10:43 AM EST Pulse 102 07/05/2025 10:43 AM EST Temperature 37 C (98.6 F) 06/22/2025 2:30 PM EST Respiratory Rate 17 06/22/2025 2:30 PM EST Oxygen Saturation 100% 06/22/2025 2:30 PM EST Inhaled Oxygen Concentration - - Weight 106 kg (233 lb 12.8 oz) 07/05/2025 10:43 AM EST Height 167.6 cm (5' 6 ) 07/05/2025 10:43 AM EST Body Mass Index 37.74 07/05/2025 10:43 AM EST Plan of Treatment Upcoming Encounters Date Type Department Care Team (Late st Contact Info) Description 08/18/2025 3:30 PM EST [facility] [address], [place] [phone] Carlene Olmstead MD [address] [place] 01/10/2026 10:00 AM EDT Office Visit Internal Medicine - [facility] [place] [phone] Carlene Olmstead MD [address] [facility] [place] Health Maintenance Due Date Last Done Comments Non-Opioid Controlled Substance Agreement 1995 Diabetes: Annual Foot Exam 2005 Diabetes: Annual Retina Eye Exam 2005 Hepatitis A Vaccines (1 of 2 - Risk 2-dose series) 2014 Pneumococcal Vaccine: Pediatrics (0 to 5 Years) and At-Risk Patients (6 to 49 Years) (1 of 2 - PCV) 2014 HPV Vaccines (1 - 3-dose SCDM series) 2022 DTaP,Tdap,and Td Vaccines (8 - Td or Tdap) 11/09/2022 11/09/2012, 03/21/2008, 05/15/2000, Additional history exists HIV Screening 08/26/2023 Hepatitis C Screening 08/26/2023 Social Influencers of Health Screening 08/26/2023 COVID-19 Vaccine ( season) 2025 Diabetes: Annual Urine Albumin-Creatinine Ratio (uACR) 06/21/2025 05/24/2021 Diabetes: Blood Sugar Control Test (HGBA1C) 01/03/2026 07/05/2025, 2025 Diabetes: Annual GFR (Glomerular Filtration Rate) 06/21/2026 06/21/2025, 06/02/2025, 05/23/2025, Additional history exists Hypertension/CHF/CAD Annual BMP Blood Test 06/21/2026 06/21/2025, 06/02/2025, 05/23/2025, Additional history exists Drug Screen 06/22/2026 06/22/2025 Cholesterol Screening (Lipid Panel) 2030 2025 RSV [...] this topic Varicella Vaccines Completed 06/26/2009, 02/13/1999 Influenza Vaccine Completed 06/24/2025, , 07/02/2010, Additional history exists Depression Screening Completed 07/05/2025 Meningococcal B Vaccine Aged Out No l onger eligible based on patient's age to complete this topic RSV Immunization Patients Under 20 months Aged Out No longer eligible based on patient's age to complete this topic Procedures Procedure Name Priority Date/Time Associated Diagnosis Comments CBC WITH AUTO DIFFERENTIAL Routine 07/05/2025 11:45 AM EST Anemia, unspecified type RHEUMATOID FACTOR Routine 07/05/2025 11: 45 AM EST Polyarthralgia URIC ACID Routine 07/05/2025 11:45 AM EST Polyarthralgia BORRELIA BURGDORFERI ANTIBODY Routine 07/05/2025 11:45 AM EST Polyarthralgia VIPIN IFA WITH TITER AND PATTERN Routine 07/05/2025 11:45 AM EST Polyarthralgia SEDIMENTATION RATE Routine 07/05/2025 11 :45 AM EST Polyarthralgia CBC AND DIFFERENTIAL Routine 07/05/2025 11:45 AM EST Anemia, unspecified type IRON AND TIBC Routine 07/05/2025 11:45 AM EST Anemia, unspecified type VITAMIN B12 AND FOLATE Routine 11:45 AM EST Anemia, unspecified type HEMOGLOBIN A1C Routine 07/05/2025 11:45 AM EST Elevated blood sugar METHADONE SCREEN, URINE STAT 06/22/2025 8:33 AM [...] EST from Last 3 Months Results * Vitamin B12 and folate (07/05/2025 11:45 AM EST) Vitamin B-12 345 211 - 911 pcg/mL 07/05/2025 4:38 PM EST [facility] Folate 18.5 >=5.4 ng/ml 07/05/2025 4:38 PM EST [facility] Comment:Over the counter sup plements containing high doses of biotin may interfere with this assay. If interference is suspected, patients shoud be retested after refraining from biotin supplements for 72 hours. Blood Venous blood specimen / Unknown Venipuncture / Unknown 07/05/2025 11:45 AM EST 07/05/2025 11:45 AM EST Balbir Mayes NP LAB BLOOD ORDERABLES Final Res ult Performing Organization Address City/[facility]/ZIP Co de Phone Number [facility] [address] [place] [address], [place] [phone] * VIPIN IFA with titer and pattern (07/05/2025 11:45 AM EST) Pathologist [facility] VIPIN Negative Negative 07/06/2025 1:59 PM EST [facility] Comment:VIPIN performed by ind irect immunofluorescence (IFA) using HEp-2 substrate. Blood Venous blood specimen / Unknown Venipuncture / Unknown 07/05/2025 11:45 AM EST 07/05/2025 11:45 AM EST Balbir Mayes NP LAB BLOOD ORDERABLES Final Res ult Performing Organization Address [facility] de Phone Number [facility] [address] [place] [address], [place] [phone] * (ABNORMAL) CBC auto differential (07/05/2025 11:45 AM EST) Only the most recent of2 resultswithin the time period is included. Pathologist [facility] WBC 11.6(H) 4.8 - 10.8 K/mcL LAB HEMETOLOGY METHOD 07/05/2025 1:56 PM EST [facility] RBC 5.00 4.50 - 5.50 M/mcL LAB HEMETOLOGY METHOD 07/05/2025 1:56 PM EST [facility] Hemoglobin 13.8 13.5 - 17.5 g/dL LAB HEMETOLOGY METHOD 07/05/2025 1:56 PM [facility] Hematocrit 43.7 42.0 - 54.0 % LAB HEMETOLOGY METHOD 07/05/2025 1:56 PM [facility] MCV 86.7 79.0 - 98.0 FL LAB HEMETOLOGY METHOD 07/05/2025 1:56 PM [facility] MCH 27.4 27.0 - 32.0 pcg LAB HEMETOLOGY METHOD 07/05/2025 1:56 PM [facility] MCHC 31.6(L) 32.0 - 37.0 g/dL LAB HEMETOLOGY METHOD 07/05/2025 1:56 PM [facility] RDW 14.4 11.0 - 15.0 % LAB HEMETOLOGY METHOD 07/05/2025 1:56 PM [facility] Platelets 294 130 - 400 K/mcL LAB HEMETOLOGY METHOD 07/05/2025 1:56 PM [facility] MPV 11.2(H) 7.0 - 11.0 FL LAB HEMETOLOGY METHOD 07/05/2025 1:56 PM [facility] NRBC 0.0 <1.0 % LAB HEMETOLOGY METHOD 07/05/2025 1:56 PM [facility] NRBC Absolute 0.00 <0.10 K/mcL LAB HEMETOLOGY METHOD 07/05/2025 1:56 PM [facility] Neutrophils Relative 55.8 % LAB HEMETOLOGY METHOD 07/05/2025 1:56 PM [facility] Lymphocytes Relative 30.9 % LAB HEMETOLOGY METHOD 07/05/2025 1:56 PM [facility] Monocytes Relative 9.9 % LAB HEMETOLOGY METHOD 07/05/2025 1:56 PM [facility] Eosinophils Relative 2.7 % LAB HEMETOLOGY METHOD 07/05/2025 1:56 PM EST [facility] Basophils Relative 0.3 % LAB HEMETOLOGY METHOD 07/05/2025 1:56 PM EST [facility] Immature Granulocytes Relative 0.4 % LAB HEMETOLOGY METHOD 07/05/2025 1:56 PM [facility] Neutrophils Absolute 6.44 1.50 - 7.00 K/mcL LAB HEMETOLOGY METHOD 07/05/2025 1:56 PM EST [facility] Lymphocytes Absolute 3.57 1.00 - 5.00 K/mcL LAB HEMETOLOGY METHOD 07/05/2025 1:56 PM EST [facility] Monocytes Absolute 1.15(H) 0.20 - 1.00 K/mcL LAB HEMETOLOGY METHOD 07/05/2025 1:56 PM EST [facility] Eosinophils Absolute 0.31 0.00 - 0.50 K/mcL LAB HEMETOLOGY METHOD 07/05/2025 1:56 PM EST [facility] Basophils Absolute 0.04 0.00 - 0.20 K/mcL LAB HEMETOLOGY METHOD 07/05/2025 1:56 PM EST [facility] Immature Granulocytes Absolute 0.05(H) 0.00 - 0.03 K/mcL LAB HEMETOLOGY METHOD 07/05/2025 1:56 PM [facility] Blood Venous blood specimen / Unknown Venipuncture / Unknown 07/05/2025 11:45 AM EST 07/05/2025 11:45 AM EST us Balbir Mayes NP LAB BLOOD ORDERABLES Final Res ult [facility] [address] [place] [address], * (ABNORMAL) Iron and TIBC (07/05/2025 11:45 AM EST) Iron 51 50 - 160 mcg/dL 07/05/2025 4:38 PM EST [facility] TIBC 363 250 - 450 mcg/dL 07/05/2025 4:38 PM [facility] Iron Saturation 14(L) 20 - 50 % 4:38 PM EST [facility] Blood Venous blood specimen / Unknown Venipuncture / Unknown 07/05/2025 11:45 AM EST 07/05/2025 11:45 AM EST Balbir Mayes NP LAB BLOOD ORDERABLES Final Res ult Performing Organization Address City/[facility]/ZIP Co de Phone Number [facility] [address] [place] [address], [place] [phone] * Borrelia burgdorferi antibody (07/05/2025 11:45 AM EST) [facility] [address] Lyme Ab Negative Negative LAB CHEMISTRY METHOD 07/05/2025 3:27 PM EST [facility] Comment: No laboratory evidence of infection [...] NP LAB BLOOD ORDERABLES Final Res ult [facility] [address] [place] [address], [place] [phone] * (ABNORMAL) Sedimentation rate (07/05/2025 11:45 AM EST) [facility] [address] Sed Rate 56(H) 0 - 15 mm/hr LAB HEMETOLOGY METHOD 07/05/2025 1:55 PM EST [facility] Blood Venous blood specimen / Unknown Venipuncture / Unknown 07/05/2025 11:45 AM EST 07/05/2025 11:45 AM EST us Balbir Mayes [employer] LAB BLOOD ORDERABLES Final Res ult [facility] [address] [place] [address], [place] [phone] * Rheumatoid factor (07/05/2025 11:45 AM EST) Rheumatoid Factor <3.5 <15.0 I Unit/mL 07/05/2025 4:43 PM EST [facility] Blood Venous blood specimen / Unknown Venipuncture / Unknown 07/05/2025 11:45 AM EST 07/05/2025 11:45 AM EST us Balbir Mayes [employer]BI[employer]PLICATION TE[employer] LAB BLOOD ORDERABLES Final Res ult Performing Organization Address City/[facility]/ZIP Co de Phone Number [facility] [address] [place] [address], [place] [phone] * Uric acid (07/05/2025 11:45 AM EST) Uric Acid 3.8 3.7 - 9.2 mg/dL 07/05/2025 4:35 PM EST [facility] Blood Venous blood specimen / Unknown Venipuncture / Unknown 07/05/2025 11:45 AM EST 07/05/2025 11:45 AM EST us Balbir Mayes [employer]BI[employer]PLICATION TESTER LAB BLOOD ORDERABLES Final Res ult [facility] [address] [place] [address], [place] [phone] * Hemoglobin A1c (07/05/2025 11:45 AM EST) [facility] [address] Hemoglobin A1C 5.4 <6.5 % LAB CHEMISTRY METHOD 07/07/2025 2:39 PM EST [facility] Mean Bld Glu Estim. 108 mg/dL LAB CHEMISTRY METHOD 07/07/2025 2:39 PM [facility] Blood Venous blood specimen / Unknown Venipuncture / Unknown 07/05/2025 11:45 AM EST 07/05/2025 11:45 AM EST Balbir Mayes [employer]BI[employer] APPLICATION TESTER LAB BLOOD ORDERABLES Final Res ult [facility] [address] [place] [address], * (ABNORMAL) Drug abuse screen 8a panel, urine (06/22/2025 8:33 AM EST) [facility] [address] Amphetamine Screen, Ur Negative Negative 06/22/2025 9:11 AM [facility] Comment:Certain OTC medicati ons containing ephedrine, phenylephrine, pseudoephedrine and phenylpropanolamine can cause false positive results. Barbiturate Screen, Ur Negative Negative 06/22/2025 9:11 AM [facility] Benzodiazepine Screen, Ur Negative Negative 06/22/2025 9:11 AM [facility] Cocaine Screen, Ur Negative Negative 2024 9:11 AM [facility] Opiate Screen, Ur Negative Negative 025 9:11 AM [facility] Cannabinoid (THC) Screen, Ur Positive(A ) Negative 06/22/2025 9:11 AM [facility] Comment:Specimens from patie nts taking pantoprazole sodium (Protonix) have been shown to produce false positive results. Oxycodone Screen, Ur Negative Negative 05/29 9:11 AM [facility] Fentanyl, Ur Negative Negative 06/22/2025 9:11 AM EST [facility] Urine Urine specimen obtained by clean catch procedure / Unknown Non-blood Collection / Unknown 06/22/2025 8:33 AM EST 06/22/2025 8:[address] [facility] - 06/22/2025 9:11 AM EST [...] ORDERABLES Final Resul t Performing Organization Address City/[facility]/ZIP Co de Phone Number [facility] [address] [place] [address], [place] [phone] * Buprenorphine screen, urine (06/22/2025 8:33 AM EST) Buprenorphine Screen Urine Negative Negative 06/22/2025 9:09 AM EST [facility] Urine Urine specimen obtained by clean catch procedure / Unknown Non-blood Collection / Unknown 06/22/2025 8:33 AM EST 06/22/2025 8:38 AM EST Narrative [facility] - 06/22/2025 9:09 AM EST Assay cutoff 5 ng/mL Semi-quantitative assay for screening purposes only. Unconfirmed screening result should not be used for non-medical purposes. *ALTERNATE METHOD CONFIRMATION DONE UPON REQUEST ONLY* us Anthony Olson MD LAB URINE ORDERABLES Final Resul t Performing Organization Address City/[facility]/ZIP Co de Phone Number [facility] [address] [place] [address], [place] [phone] * Methadone, urine (06/22/2025 8:33 AM EST) Methadone Screen, Urine Negative Negative 06/22/2025 9:11 AM EST [facility] Comment: Assay cutoff 300 ng/mL [...] ORDERABLES Final Resul t Performing Organization Address [facility] de Phone Number [facility] [address] [place] [address], [place] [phone] * Phencyclidine, urine (06/22/2025 8:33 AM EST) PCP Scrn, Ur Negative Negative 06/22/2025 9:11 AM EST [facility] Comment: Assay cutoff 25 ng/mL Semi-quantitative [...] ORDERABLES Final Resul t Performing Organization Address City/[facility]/ZIP Co de Phone Number [facility] [address] [place] [address], [place] [phone] * XR Chest 1 View (06/21/2025 6:27 PM EST) Anatomical Region Laterality Modality Body Radiographic Celeste ging 06/22/2025 7:45 AM EST Impressions 06/22/2025 7:46 AM EST No acute pulmonary disease. Code 76382 -------- FINAL REPORT -------- Dictated By: Waqar Ceja Dictated Date: 06/22/2025 07:45 ET Assigned Physician: Waqar Ceja Reviewed and Electronically Signed By: Waqar Ceja Signed Date: 06/22/2025 07:46 ET Workstation ID: [id number] Transcribed By: Self Edit Transcribed Date: 06/22/2025 [...] clear. IMPRESSION: No acute pulmonary disease. Code 02435 -------- FINAL REPORT -------- Dictated By: Waqar Ceja Dictated Date: 06/22/2025 07:45 ET Assigned Physician: Waqar Ceja Reviewed and Electronically Signed By: Waqar Ceja Signed Date: 06/22/2025 07:46 ET Workstation ID: [id number] Transcribed By: Self Edit Transcribed Date: 06/22/2025 07:45 ET Anthony Olson MD IMG XR PROCEDURES Final Result * 12-Lead ECG (06/21/2025 5:15 PM EST) Ventricular Rate ECG 76 BPM GEMUSE Atrial Rate 76 BPM GEMUSE P-R Interval 138 ms GEMUSE QRS Duration 110 ms GEMUSE Q-T Interval 358 ms GEMUSE QTc 402 ms GEMUSE P Wave [place] 67 degrees GEMUSE R [place] 106 degrees GEMUSE T [place] 41 degrees GEMUSE ECG Interpretation Normal sinus rhythm Right axis deviation When compared with ECG of 07-JUN-2023 00:22, No significant change was found Confirmed by ARGENIS PITTMAN ([id number]) on 06/23/2025 11:38:01 PM GEMUSE 06/21/2025 5:15 PM EST 06/23/2025 11:38 PM EST us Anthony Olson MD ECG ORDERABLES Final Result Performing Organization Address City/[facility]/ZIP Co de Phone Number GEMUSE * Ethanol (06/21/2025 4:59 PM EST) Ethanol Level 4 0 - 10 mg/dL 06/21/2025 6:02 PM EST [facility] Blood Venous blood specimen / Unknown Venipuncture / Unknown 06/21/2025 4:59 PM EST 06/21/2025 5:19 PM EST us Anthony Olson MD LAB BLOOD ORDERABLES Final Resul t Performing Organization Address [facility] de Phone Number [facility] [address] [place] [address], [place] [phone] * (ABNORMAL) Acetaminophen level (06/21/2025 4:59 PM EST) Acetaminophen Level <2.0(L) 10.0 - 30.0 mcg/mL 06/21/2025 6:02 PM EST [facility] Blood Venous blood specimen / Unknown Venipuncture / Unknown 06/21/2025 4:59 PM EST 06/21/2025 5:19 PM EST us Anthony Olson MD LAB BLOOD ORDERABLES Final Resul t Performing Organization Address City/[facility] Co de Phone Number [facility] [address] [place] [address], [place] [phone] * Salicylate level (06/21/2025 4:59 PM EST) Salicylate Level <3.0 2.0 - 29.0 mg/dL 06/21/2025 6:04 PM [facility] Blood Venous blood specimen / Unknown Venipuncture / Unknown 06/21/2025 4:59 PM EST 06/21/2025 5:19 PM EST us Anthony Olson MD LAB BLOOD ORDERABLES Final Resul t [facility] [address] [place] [address], [place] [phone] * (ABNORMAL) Comprehensive metabolic panel (06/21/2025 4:59 PM EST) Sodium 141 133 - 145 mmol/L 06/21/2025 6:02 PM [facility] Potassium 4.1 3.5 - 5.5 mmol/L 06/21/2025 6:02 PM [facility] Chloride 102 96 - 110 mmol/L 06/21/2025 6:02 PM [facility] CO2 29 21 - 32 mmol/L 06/21/2025 6:02 PM [facility] Anion Gap 10 3 - 11 06/21/2025 6:02 PM [facility] LAB Glucose 95 70 - 100 mg/dL 06/21/2025 6:02 PM [facility] BUN 9 5 - 25 mg/dL 06/21/2025 6:02 PM [facility] Creatinine 0.60(L) 0.70 - 1.30 mg/dL 06/21/2025 6:02 PM [facility] eGFR 133 >=60 mL/min/1. 73m2 06/21/2025 6:02 PM [facility] Comment:Calculation based on the Chronic Kidney Disease Epidemiology Collaboration (CKD-EPI) equation refit without adjustment for race. BUN/Creatinine Ratio 15.0 06/21/2025 6:02 PM [facility] Calcium 9.3 8.5 - 10.5 mg/dL 06/21/2025 6:02 PM [facility] AST (SGOT) 32 10 - 42 unit/L 06/21/2025 6:02 PM [facility] ALT (SGPT) 60 10 - 60 unit/L 06/21/2025 6:02 PM [facility] Alkaline Phosphatase 62 42 - 121 unit/L 06/21/2025 6:02 PM [facility] Total Protein 7.5 6.0 - 8.0 g/dL 06/21/2025 6:02 PM [facility] Albumin 4.3 3.2 - 5.0 g/dL 06/21/2025 6:02 PM [facility] Total Bilirubin 0.5 0.0 - 1.4 mg/dL 06/21/2025 6:02 PM [facility] Blood Venous blood specimen / Unknown Venipuncture / Unknown 06/21/2025 4:59 PM EST 06/21/2025 5:19 PM EST us Anthony Olson MD LAB BLOOD ORDERABLES Final Resul t [facility] [address] [place] [address], from Last 3 Months Insurance MEDICAID - [place] [facility] Care Teams Fuel Agent Relationship Specialty Start Date End Date Carlene Olmstead MD [address] [place] [address] PCP - General Internal Medicine 06/21/25
--- OUTSIDE RECORDS SUMMARY | 2025-07-08 19:30 | XMS_ITS | Encounter Summary ---
Author Organization [employer] [facility] Address [address] [place] [address] Care Team Providers Care Sales Ledger Administrator Name Role Phone Carlene Olmstead MD Primary Care Provider [phone] Encounter Details Date Type Department Care Team (Late Contact Info) Description 07/06/2025 Results Follow-Up Internal Medicine - [address] [phone] Balbir Mayes NP [address] [place] [id number] Social History Tobacco Use Types Packs/Day Years [...] PM EST Office Visit Internal Medicine - [address] [phone] Carlene Olmstead MD [address] [place] [address] 01/10/2026 10:00 AM EDT Office Visit Internal Medicine - [address] [place] [phone] Carlene Olmstead MD [address] [place] documented as of this encounter Visit Diagnoses Not on filedocumented in this encounter Additional Health Concerns Assessment Noted Time PHQ-9 Depression Total Score: 1 07/05/20 10:43 AM EST documented as of this encounter Care Teams Sales Ledger Administrator Relationship Specialty Start Date End Date Carlene Olmstead MD [address] [place] PCP - General Internal Medicine 06/21/25 documented as of this encounter
--- OUTSIDE RECORDS SUMMARY | 2025-07-08 19:30 | XMS_ITS | Clinical Summary ---
Author Organization [facility] Address [address] [place], [place] [id number] Phone Care Team Providers Care Hat Braider Name Role Phone Pcp, Unknown Primary Care Provider Unavailabl e Allergies No known active allergies Medications acetaminophen (TYLENOL) 325 mg tablet Take 2 tablets (650 mg total) by mouth every 6 (six) hours as needed. 0 3 Active dextran 70-hypromellose -glycern (ARTIFICIAL TEARS) 0.1-0.3-0.2 % Place 1 drop into each eye 4 (four) times a day as needed for other (free text field) (dry eyes). 3 Active folic acid (FOLVITE) 1 MG tablet Take 1 tablet (1 mg total) by mouth daily. 3 Active multivitamins with minerals-iron (THERA-VM) Tab Take 1 tablet by mouth daily. 3 Active omeprazole (PRILOSEC) 40 MG capsule Take 1 capsule (40 mg total) by mouth 2 (two) times a day before meals. 120 capsule 3 Active thiamine (VITAMIN B-1) 100 MG tablet Take 1 tablet (100 mg total) by mouth daily. 3 Active white petrolatum-mine ral oiL (EUCERIN) Crea Apply topically as needed (xerosis). 0 3 Active Active Problems Problem Noted Date Diagnosed Date Multiple duodenal ulcers 02/11/2023 Assessment & Plan (02/14/2023 2:20 PM EDT): #erosive gastropathy #abdominal pain #nausea and vomiting [...] x2-3 months (started 02/11) - PRN maalox Vomiting in adult 02/10/2023 Known medical problems 02/08/2023 Assessment & Plan (02/10/2023 11:51 AM EDT): #DM: Diagnosed in the context of his initial series of hospitalizations with significantly elevated A1C (reportedly 12-14) and was treated with SGLT-2 inhibitor, metformin, and later trulicity. He and his say that he had this A1c > 12 before he was treated w/ any steroids for psoriasis, though this could be incorrect. Unclear otherwise why his A1C would have dropped significantly over the subsequent year, and he was ultimately able to discontinue all therapy. Blood sugar well controlled on initial labs here, A1c < 7. - continue to monitor, no indication for SS currently #HLD: Elevated cholesterol and started on statin therapy during a prior hospitalization, but no longer taking. - hold on new meds for now but could consider statin based on LDL and hepatic steatosis Pain 02/08/2023 Assessment & Plan (02/14/2023 2:12 PM EDT): Symptoms began in 2020 with fatigue, joint pain, and migratory all body pain. Significant prior workup at multiple medical centers, some of which we can view records ([facility]), some of which we cannot ([facility]). His initial ED workup (labs, vitals, etc) and the overall chronicity of his story are very reassuring against any imminently life-threatening or acute process. The most straightforward explanation of his symptoms would be an initial insult of psoriatic arthritis, which was subsequently complicated by complex/chronic pain, likely exacerbated by his repeated exposures to opioids and likely impacted by his mood. The recent development of rash and the return of his episodes of severe hyperhidrosis occur in the context of a gap in biologic therapy for the underlying psoriatic arthritis, which may relate to increased disease activity. That said, even his rheumatologists have suspected there may be something else going on; patient and are frustrated that the interest in figuring out what that may be has stalled since Fall 2021. Meanwhile his QOL is quite poor and far from his previous baseline; now with increasing abdominal pain and only able to tolerate clears, typically takes several hours to get up/out of bed and get downstairs, and has been unable to tolerate return to work as a [employer]. Overall, low suspicion for underlying malignancy or infection given overall stable symptomatology and prior workup. No evidence of IBD on pathology from colonoscopy. The recent severe PO intolerance could indicate some element of impaired gastric motility- maybe gastroparesis given his history of DM (though now well controlled/resolved) though seems unlikely. Low suspicion for pheo (which his has raised concern for) despite episodic sweating- no evidence of hypertension during episodes, but will monitor. Clearly there is an underlying medical disease, but there could also be some element of somatization. Rheumatology has evaluated this admission give psoriatic arthritis; they do not feel like this is suboptimally controlled, and even if so, does not fully explain his constellation of symptoms. GI consulted as well given GI symptoms are primary driving reason for hospitalization; EGD/colonoscopy as discussed elsewhere, but with evidence of multiple ulcers, erythematous mucosa and polyps with pathology showing only evidence of inflammation. Additional negative work up thus far notable for low CK, negative hepatitis serologies, brucella Ab, negative for celiac, normal iron studies, B12, TSH, CCP Ab IgG, RHF, FLC, SPEP, gastrin. VIPIN positive at 1:160 and homogenous. Porphyria urine screening slightly elevated (coproporphyrin 174, pentacaroxyl 9) but in discussion with hematology curbside, since urine PBG normal, this is considered negative for porphyria. They did note that elevated levels like this can occur in setting of lead poisoning so recommended sending heavy metal screening which remains pending. - IAC request for [facility] records 02/02-02/06 (though does not seem they did much diagnostic workup there) - f/u heavy metal screen - f/u tryptase - Appreciate GI recommendations - if new/worsening skin findings, consider derm c/s for biopsy - Appreciate Rheumatology recommendations (signed off) - Pain management: tylenol, heat/cold packs, switch IV dilaudid to PO oxycodone - Nausea management: compazine PRN - Appreciate nutrition consult -- ensures added -- may need to consider PPN - Appreciate social work consult Failure to thrive in adult 02/08/2023 Social History Tobacco Use Types Packs/Day Years [...] Sign Reading Time Taken Comments Blood Pressure 135/78 02/15/2023 7:08 AM EDT Pulse 95 02/15/2023 7:08 AM EDT Temperature 36.3 C (97.3 F) 02/15/2023 7:08 AM EDT Respiratory Rate 18 02/15/2023 7:08 AM EDT Oxygen Saturation 97% 02/15/2023 7:0 8 AM EDT Inhaled Oxygen Concentration - - Weight 109.2 kg (240 lb 11. 9 oz) 02/11/2023 6:00 AM EDT bed zero'd Height 170.2 cm (5' 7 ) 02/09/2023 9:47 AM EDT Body Mass Index 37.71 02/09/2023 9:47 AM EDT Plan of Treatment Health Maintenance Due Date Last Done Comments Adult Td,Tdap Booster 1995 DEPRESSION SCREENING 2007 COLOGUARD 02/24/2023 FIT TEST 02/24/2023 FOBT 02/24/2023 SIGMOIDOSCOPY 02/24/2023 VIRTUAL COLONOSCOPY 02/24/2023 INFLUENZA VACCINE (#1) 2025 , 05/18/2021 COVID-19 VACCINE (1 - 2024-2 6 season) 2025 COLONOSCOPY 02/11/2026 02/11/2023 COLORECTAL CANCER SCREENING 02/11/2026 HEPATITIS A VACCINES Aged Out 03/31/2022 No long er eligible based on patient's age to complete this topic HIV ONE-TIME SCREENING (18-6 5 YEARS) Completed 02/09/2023 HEPATITIS C SCREENING Completed 02/10/2023 , 02/10/2023, 02/10/2023 SMOKING STATUS SCREENING (On ce After 26 Yrs) Completed 02/11/2023 HIB VACCINES Aged Out No longer eligi ble based on patient's age to complete this topic MENINGOCOCCAL VACCINES (ACWY) Aged Out No longer eligible based on patient's age to complete this topic MENINGOCOCCAL VACCINES (B) Aged Out N o longer eligible based on patient's age to complete this topic PNEUMOCOCCAL VACCINES (0-49 years) Aged Out No longer eligible b ased on patient's age to complete this topic Medical Devices Not on file Procedures Procedure Name Priority Date/Time Associated Diagnosis Comments ENDOSCOPY, COLON 02/11/2023 1:08 PM EDT HEPATITIS C ANTIBODY, QUALITATIVE Routine 02/10/2023 7:37 AM EDT from Last 3 Months or Most Recently Relevant to Health Maintenance Results * ENDOSCOPY, COLON (02/11/2023 1:08 PM EDT) 02/11/2023 1:08 PM EDT Narrative Transcriptions Shawna Morse MD, MSc - 02/11/2023 1:08 PM EDT Gastrointestinal Endoscopy Unit Patient Name: Quan Davies Exam Date: 02/11/2023 1:08 PM Date of : 1995 Admit Type: Outpatient Age: 27 Room: [place] [address] Gender: Male Note Status: Finalized Attending MD: Shawna Morse , Procedure: Colonoscopy Indications: Generalized abdominal pain Providers: Shawna Morse Referring MD: Unknown Pcp (Referring MD) Medicines: Monitored Anesthesia Care Complications: No immediate complications. Procedure: After obtaining informed consent, the endoscope was passed under direct vision. Throughout the procedure, the patient's blood pressure, pulse, and oxygen saturations were monitored continuously . The Colonoscope was introduced through the anus and advanced to the the terminal ileum, with identification of the appendiceal orifice and IC valve. The colonoscopy was performed without difficulty. The patient tolerated the procedure well. The quality of the bowel preparation was good. Findings: The perianal and digital rectal examinations were normal. The terminal ileum contained a several small 1 to 2 mm scattered non-bleeding erosions. There was associated erythema. Biopsies were taken with a cold forceps for histology. Normal mucosa was found in the descending colon, in the transverse colon, in the ascending colon and in the cecum. Biopsies were taken with a cold forceps for histology. An area of patchy mildly erythematous mucosa was found in the rectum and in the sigmoid colon. Biopsies were taken with a cold forceps for histology. A 6 mm polyp was found in the transverse colon. The polyp was sessile. The polyp was removed with a cold snare. Resection and retrieval were complete. A 3 mm polyp was found in the descending colon. The polyp was sessile. The polyp was removed with a cold snare. Resection and retrieval were complete. The retroflexed view of the distal rectum and anal verge was normal and showed no anal or rectal abnormalities. Impression: - A few erosions in the terminal ileum. Biopsied. - Normal mucosa in the descending colon, in the transverse colon, in the ascending colon and in the cecum. Biopsied. - Erythematous mucosa in the rectum and in the sigmoid colon. Biopsied. - One 6 mm polyp in the transverse colon, removed with a cold snare. Resected and retrieved. - One 3 mm polyp in the descending colon, removed with a cold snare. Resected and retrieved. - The distal rectum and anal verge are normal on retroflexion view. Recommendation: - Await pathology results. - Repeat colonoscopy for surveillance based on pathology results of polyps. Attending Participation: I personally performed the entire procedure. I was personally present throughout the entire procedure. Anesthesia administered sedation. Shawna Morse, , [id number] 02/11/2023 1:43:07 PM Number of Addenda: 0 Note Initiated On: 02/11/2023 1:08 PM us Unknown Pcp GI PROCEDURE ORDERABLES Final Re sult * Hepatitis C antibody, qualitative (02/10/2023 7:37 AM EDT) HCV ANTIBODY Negative Negative [facility] Comment:Antibodies to HCV no t detected. Does not exclude the possibility of exposure to HCV. Blood 02/10/2023 7:37 AM EDT 02/10/2023 7:49 AM EDT us Zbigniew Ozuna MD LAB BLOOD BKR ORDERABLES Emma moya Result [facility] [address] [place] [address] from Last 3 Months or Most Recently Relevant to Health Maintenance Insurance [employer] Member Subscriber Plan / Payer ( fective 2023-Present) Name:Quan Davies Relation to Subscriber:Self Name:Quan Davies Payer ID:[id number] ([facility]) Type:PPO Address: [address] [place] [phone] [employer] Member Subscriber Plan / Payer ( fective 2023-) Name:Quan Davies Relation to Subscriber:Self Name:Quan Davies Payer ID:1 ([facility]) Type:PPO Address: [address] [place], [place] [phone] [employer] Member Subscriber Plan / Payer ( fective 2023-) Name:Quan Davies Relation to Subscriber:Self Name:Quan Davies Payer ID:[id number] ([facility]) Type:PPO Address: [address] [place] [phone] [employer] Member Subscriber Plan / Payer ( fective 2023-Present) Name:Quan Davies Relation to Subscriber:Self Name:Quan Davies Payer ID:1 ([facility]) Type:PPO Address: [address] [place] [address] [employer] Member Subscriber Plan / Payer ( fective 2023-Present) Name:Quan Davies Relation to Subscriber:Self Name:Quan Davies Payer ID:1 ([facility]) Type:PPO Address: [address] [facility] [place] [address] [employer] Member Subscriber Plan / Payer ( fective 2023-Present) Name:Quan Davies Relation to Subscriber:Self Name:Quan Davies Payer ID:1 ([facility]) Type:PPO Address: [address] [place] [address] Advance Directives For more information, please contact: [phone] (9AM - 5PM [facility], Friday-Friday) Documents on File Type Date Recorded Patient Carding Doubler Expl anation Healthcare Proxy 02/11/2023 4:18 PM * Full Code (Latest Code Status on File) Date Activated Date Inactivated Comments 02/08/2023 7:06 PM Question Answer Comments Code Status Confirmed With: Patient Code Status Communicated To: Inpatient Attending Care Teams Hat Braider Relationship Specialty Start Date End Date Pcp, Unknown PCP - General 02/07/23 Additional Source Comments The information contained in this document represents components of the legal health record. It is not the complete legal health record.[facility]
--- OUTSIDE RECORDS SUMMARY | 2025-07-08 19:30 | XMS_ITS | Encounter Summary ---
Author Organization [facility] Address [address] [place] [id number] Phone Care Team Providers Care Workers Compensation Claims Adjuster Name Role Phone Pcp, Unknown Primary Care Provider Unavailabl e Encounter Details Date Type Department Care Team (Late st Contact Info) Description 02/11/2023 Procedure Pass [facility] 4 ENDO DEPT [address] [facility] [place] [address] Social History Tobacco Use Types Packs/Day Years [...] on filedocumented in this encounter Care Teams Workers Compensation Claims Adjuster Relationship Specialty Start Date End Date Pcp, Unknown PCP - General 02/07/23 documented as of this encounter Additional Source Comments The information contained in this document represents components of the legal health record. It is not the complete legal health record.[facility]
== END 2025-07-08 14:12 | disposition home or self-care (01) ==
LOC: HO.LAB 14:11
PROVIDERS: PCP Internal Medicine; Visit Provider Psychiatry & Neurology Psychiatry
DX: Z01.84 Encounter for antibody response examination (principal); F39 Unspecified mood [affective] disorder; F29 Unspecified psychosis not due to a substance or known physiological condition; M79.10 Myalgia, unspecified site
CPT/HCPCS: 36415; 80053; 80061; 81003; 82550; 82607; 82652; 82746; 83036; 83090; 83540; 83735; 83970; 84100; 84403; 84436; 84443; 84481; 84630; 85025; 85652; 86038; 86140; 86376; 86431; 93005

== ENCOUNTER → 2025-07-08 14:23 | Outpatient (BNV) | payer OTHER, SELFPAY | PROVIDERS: PCP Internal Medicine; Visit Provider Internal Medicine Cardiovascular Disease | DX: Z13.6 Encounter for screening for cardiovascular disorders (principal) | CPT/HCPCS: 93010 ==

== ENCOUNTER 2025-07-15 11:30 | Outpatient (RCR) | payer OTHER, SELFPAY ==
[2025-07-04 09:31] VITALS: BMI 36.8
[2025-07-04 09:32] VITALS: BP 108/64; PULSE 92; TEMP 36.9
--- NOTE | 2025-07-04 14:28 | PC.ADMIT ---
Patient is a 30 year old male, who is currently going through a divorce, who was referred to [facility] by [facility] inpatient behavioral health unit where patient was admitted from 06/22-06/30/25. According to records prior to hospitalization patient was displaying catatonic sxs including mutism, not talking or moving. Patients father thought patient was on too many medications that were prescribed during his sons last hospitalization thus stopped his medications including Ativan 2 mg. Patient moved to [place] from [place] where he was living with his to live with his father for more support. Patient reports history of manic sxs while in [place] and was hospitalized in [place] prior to coming to [place] a few weeks ago. He reports his actions prior to hospitalization led to legal issues and reports being charged with 9 counts of aggravated assault. See information below for more information. Patient reports he has been hospitalized 3-4 times since last inpatient LOC. Patient stated, This all started 4 years ago. I was given pain meds for my situation. They had me on hydromorphone for years. Tried resetting my pain receptors with ketamine. I started refusing the harsh meds. They decided to give me psychiatric meds and that is where the voices started to come in and that is when the duane started. Patient stated his psychiatric behaviors started 2 years ago and 4 years before that it started with pain mostly in knees and legs . Patient stated he could not walk. Stated he was in a lot of pain and his knees were 3-4 times larger than normal size. Patient stated he had medical workups at that time that were uneventful. Patient identified his supports stating, Surrounded by a big family, father and mother. My whole family knows. Patient is alert and oriented x4. he is calm and cooperative. He presented with depressed mood and anxious affect. He denied SI, no HI. He was given a copy of his safety plan if needed. Medications updated with patient and patient's discharge medication list from [facility] inpatient unit. Patient reports he is taking his medications as prescribed.
--- NOTE | 2025-07-06 18:57 | P.HPPSP_ITS ---
HPI Date of Service: 07/04/25 Chief Complaint: bipolar Sources of Information: patient interviewed, chart reviewed and crisis/core team assessment reviewed HPI Narrative: Patient is a but 30 yo male with history of Bipolar I Disorder with Catatonia, Psoriatic Arthritis who is a step-down from [facility]/ after an 8 day admission due to decompensation in the context of severe stressors, dissolution of his 4 year marriage, and significant legal issues stemming from an incident that occurred in 09/2023 where patient suffered an episode of acute manic psychosis and became paranoid trying to avert police, when a high speed police karina ensued. Patient was eventually incarcerated and then hospitalized for his first IPLOC. Patient reports having no significant psychiatric history until 2023 in the context of what was at the time entering the 2nd year of experiencing significant medical problems marked by severe debilitating pain and illness that patient was functionally and cognitively unable to work. He was eventually diagnosed with Psoriatic Arthritis but continues to struggle with an illness that doctors have struggled to manage. He also has an active court case with felony charges. In the meantime, his of 4 years, has requested a divorce feeling it is more stress than she can handle. He is feeling overwhelmed and alone and still feels there's so much uncertainly in his life in terms of his life and his wellbeing. He shares that he is terrified at the prospective of ever becoming manic in the future, it ruined my life . He is currently on Latuda 40 mg. 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 Sleep is fair. Energy is low, appetite variable. Per inpatient discharge summary, patient was brought by father to [facility] ED due to presenting with s/s of catatonia including mutism, standing at night in the shower, not moving nor talking. Per father, pt has hx of catatonia, and bipolar disorder. He recently came from [place] to [place] as wants a and patient not able to care for himself. Per [facility] records, father thought current psychotropic medications were too high doses and decided to stop them including ativan 2mg po daily and latuda. Pt was discharged from psychiatric unit in [place] about 2 weeks ago. Pertinent labs completed in the ED include: CBC without leokopenia/leukocytosis, normocytic anemia with stable H&H. CMP without electrolyte abnormalities, BUN 9, Cr 0.60, creatinine clearance 133. EKG normal sinus rhythm, possible ventricular hypertrophy, Qtc 402ms. Utox positive for THC. On the unit, pt presents with some delayed in response, but appears more talkative than described at [facility]. He reports his problems started when he started having generalized pain all over. He reports my mind is going on too fast because I have been in pain for a long time untreated. He adds I don't know how to explain it. I don't look like I am in pain, because I contain the pain. He has been dx with psoriatic arthritis. He reports he has gone under extensive work up to rule out autoimmune conditions. He reports he does not belive doctors anymore. He reports he has been diagnosed with Bipolar Disorder which he reports he is also suspicious of. He reports they stopped giving medications for pain and instead gave him psychiatric medications. He reports he hears voices, when asked to elaborate he states I don't know how to explain. He denies visual hallucinations. He has an underlying suspicious about the his medications and recommendation from his providers. He reports he does not know whether he will stay in [place] or not. He is originally from [place] and his parents are here. He denies SI/HI. He reports fair sleep . Past Psychiatric History: Inpt: pt reports he has had about 4 to 5 inpt psych admission in the past 3 years, all in [place]. OP: none currently. Past medication trials: Prozac, Lexapro, Cymbalta, lithium, Seroquel, Zyprexa, Haldol, gabapentin propranolol, Abilify, Latuda, Ativan, ketamine, (patient has not been on Depakote or Risperdal) Pt denies hx of suicide attempts. [facility] Medical History (Updated 08/29/25 @ 08:13 by Shanna Doshi MD) Congenital nevus Hematochezia Type II diabetes mellitus Guttate psoriasis Alopecia Chronic pain disorder Chronic, continuous use of opioids Long-term use of immunosuppressant medication Polyarthralgia Multiple duodenal ulcers Fatty liver Tinea cruris Chronic epididymitis Acute encephalopathy Insomnia Psoriatic arthritis Diagnostics Vital Signs (24Hr): BMI result Body Mass Index 36.8 Meds/Allergies Allergies Allergies Allergy/AdvReac Type Severity Reaction Status Date / Time No Known Allergies Allergy Verified 06/22/25 15:53 Mental Status Exam Mental Status Exam Narrative: Alert, oriented, in no acute distress. Calm, cooperative, engaged. No psychomotor agitation or neurovegetative retardation. Eye contact maintained. Mood depressed, affect constricted. Speech normal. Thought process linear, coherent. Thought content related to stressors, transient hopelessness, denies SI or HI. No paranoia or delusional content elicited. No evidence of psychosis. Insight and judgment - fair but adequate. Assessment & Plan Assessment & Plan (1) Bipolar I disorder with catatonia: Status: Acute Code(s): F31.9 - Bipolar disorder, unspecified; F06.1 - Catatonic disorder due to known physiological condition (2) Mood disorder due to medical condition: Status: Acute Code(s): F06.30 - Mood disorder due to known physiological condition, unspecified Plan Admit to [facility] VS reviewed on admission increase Latuda to 60 mg qd start Depakote ER 250 mg qhs may consider starting Lyrica for anxiety, pain may consider switching to risperidone if any mood sx or psych sx arise continue other regular medications for now Routine lab work as indicated EKG, routine for baseline QTc for medication considerations as indicated UDS as indicated [facility] reviewed Continue to monitor as per protocol Patient educated on: diagnosis, medication risk/benefits and medical condition Informed Consent: understands Reason for continued partial hosp. stay Substantial Risk for: inability to function, rapid decompensation and med/psych decompensation Certification I certify that partial hospital treatment is medically necessary due to the symptoms and problems resulting from the patient's mental illness and the failure to treat the patient at the partial hospital level of care would likely result in the patient requiring inpatient psychiatric care which could not be prevented at a less intensive level of care. Time Spent With Patient Time: Total time managing care of this patient today _90___ minutes.
--- NOTE | 2025-07-07 14:03 | HO.PHP ---
Patient?s case was opened during weekly team treatment meeting
--- NOTE | 2025-07-11 22:22 | HO.PHPPROGNO ---
Subjective Subjective Date of Service: 07/08/25 Reason For Visit: bipolar Interim History: Patient seen for follow-up. Complains of body pain throughout. Psoriatic rash on scalp is oozing and sore and is trying to keep this covered but was prescribed mupirocin for this. He has been tolerating dose increase of Latuda 60 mg, Thus far no issues but did receive Depakote. He still had not gotten his labwork done as I was waiting to check on LFTs, and he agrees to get his labs checked after program today and I will let him know if there are any issues but I'll go ahdead and send the Depakote. Still feeling depressed. All these situations suck . Feeling so overwhlmed and helpless. Appreciating the support of his father and family and folks here at the program. Despite all his problems and pain, he is very pleasant and appears to be trying in earnest to make progress at the program. When asked about SI, he states Luckily I have a good head on my shoulders.. still it's hard to not get overwhlmed... I'm told to take care of myself but I'm just stuck thinking of all my problems it's hard to not worry Sleep is still not good Medication Compliance: Yes Side effects from medications: No Attending Groups: Yes Review of Systems Acute medical concerns: No Mental Status Exam Mental Status Exam Narrative: Alert, oriented, in no acute distress. Calm, cooperative, engaged. No psychomotor agitation or neurovegetative retardation. Eye contact maintained. Mood depressed, affect constricted. Speech normal. Thought process linear, coherent. Thought content related to stressors, transient hopelessness, denies SI or HI. No paranoia or delusional content elicited. No evidence of psychosis. Insight and judgment - fair but adequate. 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: Status: Acute Code(s): F06.30 - Mood disorder due to known physiological condition, unspecified Plan continue PHP continue Latuda 60 mg qd start Depakote ER 250 mg qhs may consider starting Lyrica for anxiety, pain may consider switching to risperidone if any mood sx or psych sx arise continue other regular medications for now Routine lab work as indicated EKG, routine for baseline QTc for medication considerations as indicated UDS as indicated MassPat reviewed Continue to monitor as per protocol Patient educated on: diagnosis, medication risk/benefits and medical condition Informed Consent: understands Reason for contiued partial hosp. stay Substantial Risk for: med/psych decompensation Certification I certify that partial hospital treatment is medically necessary due to the symptoms and problems resulting from the patient's mental illness and the failure to treat the patient at the partial hospital level of care would likely result in the patient requiring inpatient psychiatric care which could not be prevented at a less intensive level of care. Total time managing care of this patient today __30__ minutes. Discharge Plan Discharge Attending provider: Shanna Doshi Medications: New zinc citrate 11 mg tablet,chewable 11 mg PO DAILY Qty: 30 2RF lurasidone 80 mg tablet 80 mg PO QAM Qty: 30 0RF Rx Instructions: must administer with food (at least 350 calories) Continued naproxen 500 mg Tablet 500 mg PO BIDWM 7 Days Qty: 14 0RF betamethasone, augmented 0.05 % Cream 1 appl topical BID 7 Days Qty: 15 0RF Protocol: Apply to: Apply to: foreskin and scrotum trazodone 100 mg Tablet 100 mg PO BEDTIME 30 Days Qty: 30 0RF clonazepam [Klonopin] 1 mg tablet See Rx Instructions .ROUTE .COMPLEX Qty: 45 0RF Rx Instructions: take one tablet po daily; take 1/2 tablet po daily PRN anxiety pregabalin 25 mg capsule 25 mg PO TID Qty: 90 0RF Changed divalproex [Depakote ER] 250 mg tablet extended release 24 hr 250 mg PO QPM Qty: 30 0RF Discontinued lorazepam 0.5 mg Tablet 0.5 mg PO TID 30 Days Qty: 90 0RF lurasidone 40 mg Tablet 40 mg PO DAILY@1700 30 Days Qty: 30 0RF Stand Alone Forms: Patient Portal Discharge page Patient Education: Zinc Supplement (By mouth), Bipolar Disorder (DC), Psoriasis (DC), Arthritis (DC) Print Language: Mongolian
--- NOTE | 2025-07-15 23:32 | HO.PHPPROGNO ---
Subjective Subjective Date of Service: 07/15/25 Reason For Visit: bipolar Interim History: Tatiana still up and down Feels he is making program but still does not feel steady. Mood is fluctuating. A lot of emotions to unpack dealing with the divorce. Still a lot of anxiety, and cant get a mental break from overthinking and ruminating. A lot of grief over his leaving him because life got too challenging, he is understnading of her predicament but feels this has been the darkest time of his life and feels all the more lonely and despairing. He has been making strides to process this loss. We review his recent lab work Will bump up Depakote ER 500 mg, and Latuda to 80 mg. We discussed starting Lyrica to see if this can address someof the anxiety and pain issues. As well as switching from lorazepamto clonazepam seeing as his anxiety and worry is constant 17/02. Denies any SI, HI , AVH. Denies any alcohol or illicit substance use. Medication Compliance: Yes Side effects from medications: No Attending Groups: Yes Review of Systems Acute medical concerns: No Mental Status Exam Mental Status Exam Narrative: Alert, oriented, in no acute distress. Calm, cooperative, engaged. No psychomotor agitation or neurovegetative retardation. Eye contact maintained. Mood less depressed but still alot of anxiety, affect more variable, some appropriate teafulness. Speech normal. Thought process linear, coherent. Thought content related to stressors, transient hopelessness, denies SI or HI. No paranoia or delusional content elicited. No evidence of psychosis. Insight and judgment - fair -good. 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: Status: Acute Code(s): F06.30 - Mood disorder due to known physiological condition, unspecified Plan continue PHP increase Latuda to 80 mg qd increase Depakote ER to 500 mg qhs will start [id number]-[id number]-arfhkubsh 500 mg daily (hepatoprotective, VPA depletes) start Lyrica 25 mg TID for anxiety, pain stop lorazepam start clonazepam 0.5-1 mg BID-TID prn anxiety may consider switching to risperidone if any mood sx or psych sx arise continue other regular medications Routine lab work and EKG reviewed Continue to monitor Patient educated on: diagnosis, medication risk/benefits and substance abuse Informed Consent: understands Reason for contiued partial hosp. stay Substantial Risk for: med/psych decompensation Certification I certify that partial hospital treatment is medically necessary due to the symptoms and problems resulting from the patient's mental illness and the failure to treat the patient at the partial hospital level of care would likely result in the patient requiring inpatient psychiatric care which could not be prevented at a less intensive level of care. Total time managing care of this patient today __40__ minutes. Discharge Plan Discharge Attending provider: Shanna Doshi Medications: New zinc citrate 11 mg tablet,chewable 11 mg PO DAILY Qty: 30 2RF lurasidone 80 mg tablet 80 mg PO QAM Qty: 30 0RF Rx Instructions: must administer with food (at least 350 calories) Continued naproxen 500 mg Tablet 500 mg PO BIDWM 7 Days Qty: 14 0RF betamethasone, augmented 0.05 % Cream 1 appl topical BID 7 Days Qty: 15 0RF Protocol: Apply to: Apply to: foreskin and scrotum trazodone 100 mg Tablet 100 mg PO BEDTIME 30 Days Qty: 30 0RF clonazepam [Klonopin] 1 mg tablet See Rx Instructions .ROUTE .COMPLEX Qty: 45 0RF Rx Instructions: take one tablet po daily; take 1/2 tablet po daily PRN anxiety pregabalin 25 mg capsule 25 mg PO TID Qty: 90 0RF Changed divalproex [Depakote ER] 250 mg tablet extended release 24 hr 250 mg PO QPM Qty: 30 0RF Discontinued lorazepam 0.5 mg Tablet 0.5 mg PO TID 30 Days Qty: 90 0RF lurasidone 40 mg Tablet 40 mg PO DAILY@1700 30 Days Qty: 30 0RF Stand Alone Forms: Patient Portal Discharge page Patient Education: Zinc Supplement (By mouth), Bipolar Disorder (DC), Psoriasis (DC), Arthritis (DC) Print Language: Telugu
--- NOTE | 2025-07-22 19:56 | HO.PHPPROGNO ---
Subjective Subjective Date of Service: 07/22/25 Reason For Visit: bipolar Interim History: Patient seen for follow-up, anticipating discharge at the end of program today.? Reports no acute issues or concerns. Medication compliant, medications well-tolerated. Denies any adverse effects.? Mood is stable.? Denies any hopelessness or SI. Denies thoughts of harming self or others at this time. Denies any aggressive ideation or HI. Denies any paranoia or AH or VH. Sleep, appetite, energy stable. Medication Compliance: Yes Side effects from medications: No Attending Groups: Yes Review of Systems Acute medical concerns: No Mental Status Exam Mental Status Exam Narrative: Alert, oriented, in no acute distress. Calm, cooperative. Mood stable, affect appropriate. Speech normal. Thought process linear, coherent, more goal-directed. Thought content related to stressors, future-oriented, denies any helplessness, hopelessness or SI.? No aggressive ideation or HI. No paranoia or delusional content elicited. No evidence of psychosis. Insight and judgment fair-good. 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: Status: Acute Code(s): F06.30 - Mood disorder due to known physiological condition, unspecified Plan Discharge from [facility] Continue regular medications? Refills sent to pharmacy Will defer further medication management to outpatient provider *Safety plan reviewed *Discharge diagnoses, treatment course, discharge plan have been reviewed with patient (including medication regime, medication management, potential side effects) as well as treatment rationale were also revisited *Discharge paperwork signed and given to patient, copy sent for scanning to chart Patient educated on: diagnosis and medication risk/benefits Informed Consent: understands Reason for contiued partial hosp. stay Substantial Risk for: stable for discharge Certification I certify that partial hospital treatment is medically necessary due to the symptoms and problems resulting from the patient's mental illness and the failure to treat the patient at the partial hospital level of care would likely result in the patient requiring inpatient psychiatric care which could not be prevented at a less intensive level of care. Total time managing care of this patient today _30___ minutes. Discharge Plan Discharge Attending provider: Shanna Doshi Medications: New zinc citrate 11 mg tablet,chewable 11 mg PO DAILY Qty: 30 2RF lurasidone 80 mg tablet 80 mg PO QAM Qty: 30 0RF Rx Instructions: must administer with food (at least 350 calories) Continued naproxen 500 mg Tablet 500 mg PO BIDWM 7 Days Qty: 14 0RF betamethasone, augmented 0.05 % Cream 1 appl topical BID 7 Days Qty: 15 0RF Protocol: Apply to: Apply to: foreskin and scrotum trazodone 100 mg Tablet 100 mg PO BEDTIME 30 Days Qty: 30 0RF clonazepam [Klonopin] 1 mg tablet See Rx Instructions .ROUTE .COMPLEX Qty: 45 0RF Rx Instructions: take one tablet po daily; take 1/2 tablet po daily PRN anxiety pregabalin 25 mg capsule 25 mg PO TID Qty: 90 0RF Changed divalproex [Depakote ER] 250 mg tablet extended release 24 hr 250 mg PO QPM Qty: 30 0RF Discontinued lorazepam 0.5 mg Tablet 0.5 mg PO TID 30 Days Qty: 90 0RF lurasidone 40 mg Tablet 40 mg PO DAILY@1700 30 Days Qty: 30 0RF Stand Alone Forms: Patient Portal Discharge page Patient Education: Zinc Supplement (By mouth), Bipolar Disorder (DC), Psoriasis (DC), Arthritis (DC) Print Language: Luxembourgish
--- NOTE | 2025-07-29 15:35 | PC.NURSE ---
Addendum entered by Mariam Peter RN 07/29/25 15:44: Also faxed to PCP EKG results: NSR, Rightward axis. Original Note: Faxed lab/EKG results on 07/20/25 and 07/25/[address] Jb Olmstead to review including Gap 11, Iron 43, CK total 27, CRP 3.51, HDL 31, B12 246, WBC 11.7, HGB 12.9, HCT 40.7, Im gran pct auto 0.6, Imgran abs auto 0.07, ur spec gravity 1.030, zinc 54, testosterone 226. Spoke to Paul who is unable to find the faxed results. Will fax results again today.
--- NOTE | 2025-08-01 14:43 | PC.NURSE ---
Spoke to Radha from the office of Dr. Jb Olmstead who reported they did recieve the faxed EKG and Lab results on 07/29/[address] Olmstead to review and they have been faxed into the system.
== END 2025-07-15 23:59 | disposition home or self-care (01) ==
LOC: HO.PHPA 11:30
PROVIDERS: Visit Provider Psychiatry & Neurology Psychiatry
DX: F31.9 Bipolar disorder, unspecified (principal); F06.1 Catatonic disorder due to known physiological condition; F06.30 Mood disorder due to known physiological condition, unspecified; Z79.899 Other long term (current) drug therapy
CPT/HCPCS: 90791; 90853

== ENCOUNTER → 2025-07-15 11:30 | Outpatient (BNV) | payer OTHER, SELFPAY | PROVIDERS: Visit Provider Psychiatry & Neurology Psychiatry | DX: F31.9 Bipolar disorder, unspecified (principal); F06.1 Catatonic disorder due to known physiological condition; F06.30 Mood disorder due to known physiological condition, unspecified | CPT/HCPCS: 90792; 99213; 99214 ==